=== PATIENT | female | born 1940 | race Caucasian/White ===

== ENCOUNTER → 2017-02-14 | Outpatient (CLI) | payer BC ==
[~2017-02-14] MED LIST: HYDR-1231 PO; THYR120T2 PO
--- NOTE | 2017-02-15 10:18 | Diagnostic Imaging Report ---
Right breast screening mammogram 2D views with tomosynthesis The current study was also evaluated with a Computer Aided Detection (CAD) system. Indication: Screening. No current complaints stated on the questionnaire. COMPARISON: 02/13/16 FINDINGS: The right breast parenchyma is heterogeneously dense which may decrease mammographic sensitivity. There are scattered benign-appearing calcifications. No definite mass, architectural distortion or suspicious calcifications. Allowing for technique and positional differences, no suspicious change is seen. IMPRESSION: No significant change. ACR BI-RADS Category 2: Benign findings. Result letter will be mailed to the patient. Note: At least 10% of breast cancer is not imaged by mammography. Dictated by: Dictated on workstation # [id number]
== END ==
LOC: RAD 14:57
PROVIDERS: ATTEND Internal Medicine Hematology & Oncology
DX: Z12.31 Encounter for screening mammogram for malignant neoplasm of breast (principal)

== ENCOUNTER → 2017-02-19 | Outpatient (CLI) | payer BC ==
[2017-02-19 13:49] LABS: BASOPHILS % (AUTO) 0 % (0-10); EOSINOPHILS # (AUTO) 0.1 10^3/uL (0.0-0.3); EOSINOPHILS % (AUTO) 1 % (0-10); LYMPHOCYTES # (AUTO) 1.7 X 10^3 (1.0-4.0); LYMPHOCYTES % (AUTO) 29 % (12-44); MEAN CORPUSCULAR HEMOGLOBIN 26 PG (25-34); MEAN CORPUSCULAR HGB CONC 31 G/DL (32-36); MEAN CORPUSCULAR VOLUME 84 FL (80-99); MEAN PLATELET VOLUME 10.8 FL (7.4-10.4); MONOCYTES # (AUTO) 0.4 X 10^3 (0.0-1.0); MONOCYTES % (AUTO) 7 % (0-12); NEUTROPHILS # (AUTO) 3.7 X 10^3 (1.8-7.8); NEUTROPHILS % (AUTO) 62 % (42-75); PLATELET COUNT 175 10^3/uL (130-400); RED BLOOD COUNT 4.32 10^6/uL (4.35-5.85); RED CELL DISTRIBUTION WIDTH 14.9 % (10.0-14.5); WHITE BLOOD COUNT 5.9 10^3/uL (4.3-11.0)
[2017-02-19 14:10] LABS: ALBUMIN 4.1 GM/DL (3.2-4.5); BILIRUBIN,TOTAL 0.6 MG/DL (0.1-1.0); CALCIUM 9.2 MG/DL (8.5-10.1); CREATININE SERUM 0.91 MG/DL (0.60-1.30); POTASSIUM 3.8 MMOL/L (3.6-5.0); TOTAL PROTEIN 7.4 GM/DL (6.4-8.2)
[2017-02-19 15:58] LABS: THYROID STIMULATING HORMONE 12.12 UIU/ML (0.35-4.94)
== END ==
LOC: ONC 13:39
PROVIDERS: ATTEND Internal Medicine Hematology & Oncology
DX: Z08 Encounter for follow-up examination after completed treatment for malignant neoplasm (principal); Z85.3 Personal history of malignant neoplasm of breast; Z90.12 Acquired absence of left breast and nipple; E03.9 Hypothyroidism, unspecified; D64.9 Anemia, unspecified; Z92.21 Personal history of antineoplastic chemotherapy
CPT/HCPCS: 36415; 80053; 84443; 85025; 99213

== ENCOUNTER → 2019-04-07 | Outpatient (CLI) ==
[2019-04-07 13:47] LABS: ABSOLUTE RETIC # 13 10e9/L (24-90); RETICULOCYTE % 0.39 % (0.50-2.40)
[2019-04-07 14:05] LABS: BAND NEUTROPHILS 2 %; BASOPHILS % (MANUAL) 1 %; ELLIPT/OVALOCYTES SLIGHT; EOSINOPHILS % (MANUAL) 0 %; LYMPHOCYTES % (MANUAL) 16 %; MONOCYTES % (MANUAL) 2 %; NEUTROPHILS % (MANUAL) 79 %
== END ==
LOC: MERGE 13:38 → LABNPT 13:38
PROVIDERS: ATTEND Family Medicine
DX: D58.2 Other hemoglobinopathies (principal)
CPT/HCPCS: 85007; 85045

== ENCOUNTER 2019-07-23 11:21 | Inpatient (IN) | payer BC, MEDICARE ==
[~2019-07-23] VITALS: Ht 154.9 cm; Wt 55.0 kg
[2019-07-23] MEDS ORDERED: ONDANSETRON 4 MG (ZOFRAN) ORAL DISSOLVE TAB PO PRN (12:00)
[2019-07-23] MEDS ORDERED: DOCUSATE SODIUM 100 MG (COLACE) CAP PO PRN (12:00)
[2019-07-23] MEDS ORDERED: LACTULOSE SYRUP 10GM/15ML (ENULOSE) 30ML UDC PO PRN (12:00)
[2019-07-23] MEDS ORDERED: FLEET ENEMA ADULT 1 EA BTL PR PRN (12:00)
[2019-07-23] MEDS ORDERED: CALCIUM CARBONATE 500 MG (TUMS) TAB.CHEW PO PRN (12:00)
[2019-07-23] MEDS ORDERED: ALPRAZolam 0.25 MG (XANAX) TAB PO PRN (12:00)
[2019-07-23] MEDS ORDERED: guaiFENesin/CODEINE (ROBITUSSIN AC) 10ML UDC PO PRN (12:00)
[2019-07-23] MEDS ORDERED: diphenhydrAMINE 25 MG TAB (BENADRYL) PO PRN ×2 (12:00→17:00)
[2019-07-23] MEDS ORDERED: LOPERAMIDE 2 MG (IMODIUM) TABLET PO PRN ×2 (12:00→17:00)
[2019-07-23] MEDS ORDERED: ACETAMINOPHEN 500 MG TAB (TYLENOL) PO PRN (12:00)
[2019-07-23] MEDS ORDERED: MELATONIN 3 MG TABLET PO PRN (12:00)
[2019-07-23] MEDS ORDERED: BISACODYL 10 MG SUPP (DULCOLAX) PR PRN (12:00)
[2019-07-23] MEDS ORDERED: MAGIC MOUTHWASH PO (12:05)
[2019-07-23] MEDS ORDERED: FERR325T18 PO (12:11)
[2019-07-23] MEDS ORDERED: FURO-124 PO (12:11)
[2019-07-23] MEDS ORDERED: PANT40TA2 PO (12:11)
[2019-07-23] MEDS ORDERED: MULT-1073 PO (12:11)
[2019-07-23] MEDS ORDERED: ERGO50006 PO (12:11)
[2019-07-23] MEDS ORDERED: LEVO88TA54 PO (12:11)
[2019-07-23] MEDS ORDERED: LOPE2TAB34 PO (12:11)
[2019-07-23] MEDS ORDERED: LACT1CAP39 PO (12:11)
[2019-07-23] MEDS ORDERED: PHEN177S41 MM (12:11)
[2019-07-23] MEDS ORDERED: DIPH25CA79 PO (12:11)
[2019-07-23] MEDS ORDERED: HYDR-3875 PO (12:13)
[2019-07-23] MEDS ORDERED: PRD20T PO (12:13)
--- NOTE | 2019-07-23 12:14 | NUR ---
ENTERED THE MED REC USING THE DISCHARGE SUMMARY FROM [facility]. AFTER THE MEDICATIONS ARE CONTINUED I WILL INTERVIEW THE PT AND MAKE ANY CHANGES TO THE MED REC/NOTES AT THAT TIME Addendum: 07/28/19 at 1243 by MARCELO ALBERTO [facility] SPOKE WITH THE PT TO COMPLETE THE MED REC. THE FOLLOWING MEDICATIONS HAVE BEEN REMOVED FROM THE MED REC DUE TO THE PT NOT TAKING BEFORE HER [place] STAY: CHLORASEPTIC SPRAY CULTURELLE HYDROCODONE 7.5/325MG LOPERAMIDE PANTOPRAZOLE MULTIVITAMIN CHANGES: PREDNISONE: BEFORE THE PT WAS AT [place] SHE WAS TAKING 20MG- 1 TAB AT 0800 &1400 AND THEN TAB AT BEDTIME- WHEN THE PT WAS DISCHARGE THEY WAS TO BE DISCONTINUED AND PREDNISONE 20MG- 2 TABS AFTER BREAKFAST X 30 DAYS WAS STARTED ALL OTHER MEDICATIONS ARE CONTINUED AND THE SAME- EXT MED HISTORY DOES SHOW WHAT THE PT WAS TAKING BEFORE SHE WAS AT [place]. OTC MEDS: BENADRYL IRON
--- NOTE | 2019-07-23 14:15 | NUR ---
AIDEE RAMSEY admitted to room 227-1, with an admitting diagnosis of , on 07/23/19 from via PRIVATE VEHICLE, accompanied by SON. AIDEE RAMSEY introduced to surroundings, call light, bed controls, phone, TV, temperature control, lights, meal times, smoking policy, visitor policy, side rail policy, bathrooms and showers. Patient Rights given to patient in the handbook. AIDEE RAMSEY verbalizes understanding that [facility] is not responsible for the loss or damage to any personal effects or valuables that are kept in the patients posession during their hospitalization. The following Patient Care Plans were discussed with the PATIENT AND FAMILY: Discharge Planning, [place] and F[place]. AIDEE RAMSEY verbalizes understanding of Interdisciplinary Patient Education. Patient and/or family were informed about the Rapid Response Team and its purpose. Patient received Patient Rights Booklet, which includes Privacy Act Statement and Data Collection Information Summary.
--- NOTE | 2019-07-23 14:46 | Physical Therapy Evaluation ---
PT Evaluation-General Medical Diagnosis Admission Date 07/23/2019 Medical Diagnosis: pneumonia Onset Date: Jul 18, 2019 Therapy Diagnosis Therapy Diagnosis: Impaired mobility Height/Weight Height (Feet): 5 Height (Inches): 4 Weight (Pounds): 125 Precautions Precautions/Isolations: Fall Prevention, Standard Precautions Weight Bear Status Weight Bearing/Tolerated Weight Bearing/Tolerated Referral Physician: Dinorah Reason for Referral: Evaluation/Treatment Medical History Pertinent Medical History: HTN Additional Medical History ANCA vasculitus Current History Patient reports to hospital in family car with SOB and general weakness Social History Home: Single Level Current Living Status: Other Family Entry Into Home: Stairs With Railing PT Steps Into Home: 3 (Rail on right) PT Steps Inside Home: 0 Prior Prior Level of Function SCALE: Activities may be completed with or without assistive devices. 2-Amubolqosj-xhpalmc completes the activity by him/herself with no assistance from a helper. 5-Set-up or Clean-up Assistance-helper sets up or cleans up; patient completes activity. [place] assists only prior to or following the activity. 4-Supervision or Touching Assistance-helper provides verbal cues and/or touching/steadying and/or contact guard assistance as patient completes activity. Assistance may be provided throughout the activity or intermittently. 3-Partial/Moderate Assistance-helper does LESS THAN HALF the effort. [place] lifts, holds or supports trunk or limbs, but provides less than half the effort. 2-Substantial/Maximal Assistance-helper does MORE THAN HALF the effort. [place] lifts or holds trunk or limbs and provides more than half the effort. 8-Kkfphvelv-knbgpg does ALL the effort. Patient does none of the effort to complete the activity. Or, the assistance of 2 or more helpers is required for the patient to complete the activity. If activity was not attempted, code reason: 7-Patient Refused. 9-Not Applicable-not attempted and the patient did not perform the activity before the current illness, exacerbation or injury. 10-Not Attempted due to Environmental Limitations-(lack of equipment, weather restraints, etc.). 88-Not Attempted due to Medical Conditions or Safety Concerns. Bed Mobility: 6 Transfers (B,C,W/C): 6 Gait: 6 Stairs: 6 Indoor Mobility (Ambulation): Independent Stairs: Needed Some Help Prior Devices Use: Walker Prior Device Use: RW PT Evaluation-Current Subjective Patient reports no pain but shortness of breath Pt/Family Goals Return home Objective Patient Orientation: Person, Place, Eyes Open ROM/Strength ROM Upper Extremities WNL ROM Lower Extremities Limited with flexion of hip and knee Strength Upper Extremities Gross weakness 4/5 Strength Lower Extremities Gross weakness at 4/5, 3/5 for B hip flexor Integumentary/Posture Bowel Incontinence: No Bladder Incontinence: No Posture forward posture when walking and sitting EOB Neuromuscular (Tone, Coordination, Reflexes) WNL Sensory Vision: Functional Hearing: Functional Sensation Right Upper Extremit: Intact Sensation Right Lower Extremit: Intact Sensation Left Lower Extremity: Intact Transfers Roll Left to Right (QC): 4 Sit to Lying (QC): 4 Lying to Sitting/Side of Bed(Q: 4 Sit to Stand (QC): 4 Chair/Fik-wu-Vpygg Xfer(QC): 4 (CGA) Car Transfer (QC): 4 (CGA) Gait Does the Patient Walk?: Yes Mode of Locomotion: Walk Anticipated Mode of Locomotion: Walk Walk 10 feet (QC): 4 (CGA) Walk 50 ft with 2 Turns(QC): 4 (CGA) Walk 150 ft (QC): 4 (CGA) Walking 10ft/uneven surface-QC: 4 (CGA) Distance: 75 eval + 150 for therapy session Gait Assistive Device: FWW Wheelchair Training Does the Pt Use a Wheelchair?: No Stairs #of Steps: 1 1 Step (curb) (QC): 3 (slight LOB due to catching heal on step. Less then 50% help) 4 Steps (QC): 88 12 Steps (QC): 88 Balance Sitting Static: Normal Sitting Dynamic: Good Standing Static: Fair Standing Dynamic: Poor Picking up an Object (QC): 5 Treatment Pt sitting EOB, provided information for evaluation about PLOF and home set up. PT/OT cotreat due to decreased functional ability requiring the skill of 2 disciplines which a rehabilitation therapy aide could not perform. OT focused on UE placement, sequencing, and cues for safety while PT focused on LE placement and overall gross movement. Pt ambulated to therapy gym with FWW where she participated in UE/LE exercises to increase functional endurance. Noted pt fatigued easily requiring rest breaks between tasks. Assessment/Needs Patient is welling to complete all rehab activities. Patient is limited by SOB, and slight confusion when complete activities. Implementing safety with issuing patient a chair alarm. Patient educated not to get out chair/bed/toilet without calling RN first. When patient is returned to bed alarm will be set. At the end of session patient was left in the care of OT. Rehab Potential: Fair Equipment Needs RW PT Short Term Goals Short Term Goals Time Frame: Jul 30, 2019 Roll Left & Right: 5 Sit to lyin Lying to sitting on side of be: 5 Sit to stand: 4 (SBA) Chair/zzm-uv-irrsg transfer: 4 (SBA) Car transfer: 4 (SBA) Walk 10 feet: 4 (SBA) Walk 50 feet with two turns: 4 (SBA) Walk 150 feet: 4 (SBA) Walking 10ft on uneven surface: 4 (SBA) 1 step (curb): 4 (SBA) 4 steps: 4 (CGA) 12 steps: 4 (CGA) PT Grievance Manager Goals Residential Goals PT Grievance Manager Goals Time Frame: Aug 22, 2019 Roll Left & Right (QC): 5 Sit to Lying (QC): 5 Lying-Sitting on Side/Bed(QC): 5 Sit to Stand (QC): 5 Chair/Bqx-dq-Obgta Xfer(QC): 5 Car Transfer (QC): 5 Does the Patient Walk: Yes Walk 10 feet (QC): 5 Walk 50ft with 2 Turns (QC): 5 Walk 150 ft (QC): 5 Walking 10ft on Uneven Surface: 5 1 Step (curb) (QC): 5 4 Steps (QC): 5 12 Steps (QC): 5 Picking up an Object (QC): 5 PT Plan Problem List Problem List: Activity Tolerance, Functional Strength, Safety, Balance, Gait, Transfer, Bed Mobility, ROM Treatment/Plan Treatment Plan: Continue Plan of Care Treatment Plan: Bed Mobility, Concurrent Therapy, Education, Functional Activity Gwyn, Functional Strength, Group Therapy, Gait, Safety, Therapeutic Exercise, Transfers Treatment Duration: Aug 22, 2019 Frequency: At least 5 of 7 days/Wk (IRF) Estimated Hrs Per Day: 1.5 hours per day Patient and/or Family Agrees t: Yes Safety Risks/Education Patient Education: Gait Training, Transfer Techniques, Correct Positioning, Disease Process Teaching Recipient: Patient Teaching Methods: Demonstration, Handout, Discussion, Audiovisual Response to Teaching: Verbalize Understanding, Return Demonstration, Reinforcement Needed Time/GCodes Time In: 1415 Time Out: 3425 Total Billed Treatment Time: 60 Total Billed Treatment 1 visit EVM 20 CoTreat with OT FA 10 min EX x 2 30 min RUPESH JIMÉNEZ PT Jul 23, 2019 14:46
--- NOTE | 2019-07-23 15:05 | Occupational Therapy Eval ---
OT Evaluation-General/PLF Medical Diagnosis Admission Date Medical Diagnosis: pneumonia Onset Date: Jul 18, 2019 Therapy Diagnosis Therapy Diagnosis: impaired ADLs/debility Height/Weight Height (Feet): 5 Height (Inches): 4 Weight (Pounds): 125 Precautions Precautions/Isolations: Fall Prevention, Standard Precautions Referral Physician: Dinorah [place] Reason: Evaluation/Treatment Medical History Pertinent Medical History: HTN Additional Medical History ANCA vasculitis, CKD, anemia, hypokalemia, HLD, hypothyroidism Current History Pt admitted to ARU on 07/23/2019 Social History Home: Single Level Current Living Status: Children (daughter) Entry Into Home: Stairs With Railing Steps Into Home: 3 (Rail on right) Steps Inside Home: 0 ADL-Prior Level of Function SCALE: Activities may be completed with or without assistive devices. 9-Ixcguzhzmt-vethliu completes the activity by him/herself with no assistance from a helper. 5-Set-up or Clean-up Assistance-helper sets up or cleans up; patient completes activity. [place] assists only prior to or following the activity. 4-Supervision or Touching Assistance-helper provides verbal cues and/or touching/steadying and/or contact guard assistance as patient completes activity. Assistance may be provided throughout the activity or intermittently. 3-Partial/Moderate Assistance-helper does LESS THAN HALF the effort. [place] lifts, holds or supports trunk or limbs, but provides less than half the effort. 2-Substantial/Maximal Assistance-helper does MORE THAN HALF the effort. [place] lifts or holds trunk or limbs and provides more than half the effort. 6-Kadghcdnf-ubxgvx does ALL the effort. Patient does none of the effort to complete the activity. Or, the assistance of 2 or more helpers is required for the patient to complete the activity. If activity was not attempted, code reason: 7-Patient Refused. 9-Not Applicable-not attempted and the patient did not perform the activity before the current illness, exacerbation or injury. 10-Not Attempted due to Environmental Limitations-(lack of equipment, weather restraints, etc.). 88-Not Attempted due to Medical Conditions or Safety Concerns. ADL PLOF Comments Pt reports being independent with bathing and dressing at prior level. Her daughter assists with cooking and cleaning as needed. She reports getting down into the tub recently (she usually stands up to take a shower) and she had to have her daughter help her get out. She did not use AD for functional mobility. Self Care: Needed Some Help Functional Cognition: Independent DME/Equipment: Tub/Shower OT Current Status Subjective Pt sitting EOB post PT evaluation, agreeable to OT evaluation followed by OT/PT co-treat. Pain Numeric Pain Scale: 0-No Pain Mental Status/Objective Patient Orientation: Person, Place, Time, Situation Attachments: Central Line Current Glasses/Contacts: Yes Hearing Aids: No Dentures/Partials: No Hand Dominance: Right Upper Extremity ROM WFL, BUE shoulder flexion to approx 160, able to touch back of head with hands Upper Extremity Coordination WFL Upper Extremity Sensation pt denied tingling/numbness, then reports she sometimes experiences tingling/numbness in her hands Upper Extremity Strength grossly 3+/5 ADL-Treatment Eating (QC): 7 Oral Hygiene (QC): 7 Shower/Bathe Self (QC): 7 Upper Body Dressing (QC): 7 Lower Body Dressing (QC): 7 On/Off Footwear (QC): 7 Toileting Hygiene (QC): 4 (CGA, pt managed pants up/down and performed hygiene) Other Treatments Pt sitting EOB, provided information for evaluation about PLOF and home set up. PT/OT cotreat due to decreased functional ability requiring the skill of 2 disciplines which a rehabilitation aide/scheduler could not perform. OT focused on UE placement, sequencing, and cues for safety while PT focused on LE placement and overall gross movement. Pt ambulated to therapy gym with FWW where she participated in UE/LE exercises to increase functional endurance. Noted pt fatigued easily requiring rest breaks between tasks. Pt educated on rehab process/expectations, verbalizing understanding. Pt completed functional reaching during standing at grab bars. Pt also worked on dynamic sitting balance while completing dowel movements, noted no LOB during sitting. with sit to/from stand transfers, pt required cues each time to place hands on chair to push up/reach back instead of placing hands on walker. Poor carryover of safety technique during session. OT/PT cotreat ends. OT tx: Pt reports she needed to use the restroom, performing functional mobility to her room with FWW, CGA. Pt completed toileting, then stood at sink for hand washing with CGA, pt required assistance with getting soap on her hands and assistance to locate paper towels due to pt being in a new environment. Pt requested to return to her recliner. Post OT session, pt seated upright in recliner, call light in reach and all needs met, chair alarm on. Education OT Patient Education: Correct positioning, Energy conservation, Exercise program, Modified ADL techniques, Progress toward Goal/Update tx plan, Purpose of tx/functional activities, Rehab process Teaching Recipient: Patient Teaching Methods: Discussion Response to Teaching: Verbalize Understanding OT Short Term Goals Short Term Goals Time Frame: Aug 05, 2019 Oral hygiene: 5 Lower body dressin Putting on/taking off footwear: 5 OT Residential Goals Residential Goals Time Frame: Aug 21, 2019 Eating (QC): 6 Oral Hygiene (QC): 6 Toileting Hygiene (QC): 6 Shower/Bathe Self (QC): 6 Upper Body Dressing (QC): 6 Lower Body Dressing (QC): 6 On/Off Footwear (QC): 6 Additional Goals: 1-Demonstrate ADL Tasks, 2-Verbalize Understanding, 3- ImproveStrength/Gwyn 1=Demonstrate adherence to instructed precautions during ADL tasks. 2=Patient will verbalize/demonstrate understanding of assistive devices/modifications for ADL. 3=Patient will improve strength/tolerance for activity to enable patient to perform ADL's. OT Education/Plan Problem List/Assessment Assessment: Decreased Activ Tolerance, Decreased Safety Aware, Decreased UE Strength, Impaired Funct Balance, Impaired I ADL's, Impaired Self-Care Skills Discharge Recommendations Plan/Recommendations: Continue POC Treatment Plan/Plan of Care Treatment,Training & Education: Yes Patient would benefit from OT for education, treatment and training to promote independence in ADL's, mobility, safety and/or upper extremity function for ADL's. Plan of Care: ADL Retraining, Functional Mobility, Group Exercise/Act as Ind, UE Funct Exercise/Act Treatment Duration: Aug 21, 2019 Frequency: At least 5 of 7 days/Wk (IRF) Estimated Hrs Per Day: 1.5 hours per day Agreement: Yes Rehab Potential: Good Time/GCodes Start Time: 14:35 Stop Time: 15:35 Total Time Billed (hr/min): 60 Billed Treatment Time 1859-0429 OT eval [id number] OT/PT co-treat [id number] OT tx 1, EVM (10'), FA 3 (50') CRUMPACKER,REKHA OT Jul 23, 2019 15:05
[2019-07-23] MEDS ORDERED: ENOXAPARIN 40 MG/0.4 ML (LOVENOX) SYR SC SCH (16:00)
[2019-07-23 16:30] VITALS: BP 125/77
[2019-07-23] MEDS ORDERED: NON-FORMULARY MEDICATION 1 EA EA (Loperamide HCl (Loperamide) 2 MG) PO PRN (17:00)
[2019-07-23] MEDS ORDERED: CHLORASEPTIC SPRAY 177 ML LIQUID MC PRN (17:00)
[2019-07-23] MEDS ORDERED: HYDROcodone/APAP 7.5 MG/325 MG (LORTAB, LORCET PLUS) TABLET PO PRN (17:00)
[2019-07-23] MEDS ORDERED: MAGIC MOUTHWASH PO PRN (17:00)
[2019-07-23] MEDS ORDERED: PHENOL MM PRN (17:00)
[2019-07-23] MEDS ORDERED: NON-FORMULARY MEDICATION 1 EA EA (Diphenhydramine HCl (Benadryl) 25 MG) PO PRN (17:00)
[2019-07-23 18:00] VITALS: BP 127/67
--- NOTE | 2019-07-23 18:02 | PM&R Post Admission Assessment ---
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 Creatinine remains stable at 1.5. Daughter reports she had received Rituximab 2 doses, last dose 05/14/19 and maintained on Atovaquone for abx PPx and PPI for gastritis PPx. Patient currently has central line which will be DC and midline will be placed for IV iron therapy. BM+. Past Rdrpulw-Vwkdvk-Ugjhik Hx Past Med/Social Hx: Reviewed Nursing Past Med/Soc Hx, Reviewed and Corrections made Patient Social History Marrital Status: single Employed/Student: employed ([employer]) Alcohol Use: Denies Use Recreational Drug Use: No Smoking Status: Never a Smoker Physical Abuse Screen: No Sexual Abuse: No Recent Foreign Travel: No Contact w/other who traveled: No Recent Hopitalizations: Yes (pneumonia, kidney disease) Recent Infectious Disease Expo: Yes (recent pneumonia) Immunizations Up To Date Date of Influenza Vaccine: Feb 03, 2019 Seasonal Allergies Seasonal Allergies: Yes Past Medical History Surgeries: Appendectomy, Hysterectomy Respiratory: Pneumonia (07/13/19 LLL) Currently Using CPAP: No Currently Using BIPAP: No Reproductive: No Sexually Transmitted Disease: No HIV/AIDS: No Female Reproductive Disorders: Denies Hysterectomy Genitourinary: Renal Failure Musculoskeletal: Chronic Back Pain Endocrine: Hypothyroidsim HEENT: Cataract Loss of Vision: Bilateral Hearing Impairment: Denies Cancer: Breast Did You Recieve Any Treatments: Yes What Type of Treatment Did You: Surgical Intervention Cancer: left mastectomy 1982 History of Blood Disorders: No Adverse Reaction to Blood Ash: No Family History Alcoholism G8 BROTHER G8 BROTHER Alzheimer's disease G8 BROTHER Arthritis G8 BROTHER Cataracts 19 FATHER 19 MOTHER G8 BROTHER G8 BROTHER G8 SISTER Colon cancer 19 FATHER Completed stroke 19 FATHER Dementia G8 BROTHER Diabetes mellitus 19 MOTHER Myocardial infarction 19 FATHER Prior Level of Function Bed Mobility: 6 Transfers: 6 Gait: 6 Stairs: 6 Indoor Mobility (Ambulation): Independent Stairs: Needed Some Help Prior Devices Use: Walker RW Self Care: Needed Some Help Functional Cognition: Independent Current Level of Fuctioning Roll Left to Right: 4 Sit to Lyin Lying to Sitting/Side of Bed: 4 Sit to Stand: 4 Chair/Roj-ma-Ddepy Xfer: 4 (CGA) Car Transfer: 4 (CGA) Does the Patient Walk: Yes Mode of Locomotion: Walk Anticipated Mode of Locomotion: Walk Walk 10 feet: 4 (CGA) Walk 50 ft with 2 Turns: 4 (CGA) Walk 150 ft: 4 (CGA) Walking 10ft on uneven surface: 4 (CGA) Gait Assistive Device: FWW Does the Pt Use a Wheelchair: No #of Steps: 1 1 Step (curb): 3 (slight LOB due to catching heal on step. Less then 50% help) 4 Steps: 88 12 Steps: 88 Picking up an Object: 5 Eatin Oral Hygiene: 7 Shower/Bathe Self: 7 Upper Body Dressin Lower Body Dressin On/Off Footwear: 7 Toileting Hygiene: 4 (CGA, pt managed pants up/down and performed hygiene) PM&R Allergy/Meds/Data Review Allergies Coded Allergies: No Known Drug Allergies (Unverified , 07/09/14) Home Medications Scheduled Ergocalciferol (Vitamin D2) (Vitamin D2), 1,250 MCG PO SATURDAY, (Reported) Ferrous Sulfate (Ferrous Sulfate), 325 MG PO DAILY, (Reported) Furosemide (Lasix), 40 MG PO DAILY, (Reported) Lactobacillus Rhamnosus GG (Culturelle), 1 EACH PO BID, (Reported) Levothyroxine Sodium (Levothyroxine Sodium), 88 MCG PO DAILY BEFORE BREAKFA, (Reported) Multivit,Calc,Mins/Iron/Folic (Therapeutic-M Tablet), 1 EACH PO DAILY, (Reported) Pantoprazole Sodium (Protonix), 40 MG PO DAILY, (Reported) Prednisone (Prednisone), 40 MG PO DAILY AFTER BREAKFAS, (Reported) Scheduled PRN Diphenhydramine HCl (Benadryl), 25 MG PO HS PRN for SLEEP, (Reported) Hydrocodone/Acetaminophen (Lorcet Plus 7.5-325 mg Tablet), 1 EACH PO Q4H PRN for PAIN-MODERATE (5-7), (Reported) Loperamide HCl (Loperamide), 2 MG PO Q6H PRN for DIARRHEA, (Reported) Phenol (Chloraseptic), 1 SPRAY MM Q4H PRN for DISCOMFORT, (Reported) [Magic Mouthwash], 5-10 ML PO Q6H PRN for SORES, (Reported) Discontinued Medications Hydrocodone Bit/Acetaminophen (Hydrocodone-Apap 5-325 Tablet), 1 TAB PO Q6H PRN for PAIN Discontinued Reason: No Longer Taking Thyroid (Thyroid), Unknown Dose PO DAILY, (Reported) Discontinued Reason: No Longer Taking Current Medications Current Medications Reviewed Review of Systems Constitutional: see HPI, dizziness, malaise, weakness EENTM: no symptoms reported Respiratory: cough, dyspnea on exertion Cardiovascular: no symptoms reported Gastrointestinal: no symptoms reported Genitourinary: no symptoms reported Musculoskeletal: back pain Skin: no symptoms reported Psychiatric/Neurological: Depressed All Other Systems Reviewed Negative Unless Noted: Yes Physical Exam Physical Exam Vital Signs Capillary Refill : Height, Weight, BMI Height: 5'4" Weight: 125lbs. oz. [id number]; 24.00 BMI Method:Stated General Appearance: No Apparent Distress, WD/WN, Anxious, Chronically ill, Thin Eyes: Bilateral Eye Normal Inspection, Bilateral Eye PERRL HEENT: PERRL/EOMI, Normal ENT Inspection, Pharynx Normal Neck: Full Range of Motion, Normal Inspection, Non Tender, Supple, Carotid Bruit Respiratory: Chest Non Tender, Lungs Clear, No Accessory Muscle Use, No Respiratory Distress, Crackles, Decreased Breath Sounds Cardiovascular: Regular Rate, Rhythm, No Edema, No Gallop, No JVD, No Murmur, Normal Peripheral Pulses Gastrointestinal: Normal Bowel Sounds, No Organomegaly, No Pulsatile Mass, Non Tender, Soft Back: Normal Inspection, No CVA Tenderness, No Vertebral Tenderness Extremity: Normal Capillary Refill, Normal Inspection, Normal Range of Motion, Non Tender, No Calf Tenderness, No Pedal Edema Neurologic/Psychiatric: Alert, Oriented x3, No Motor/Sensory Deficits, Normal Mood/Affect, exhibits curator II-XII Norm as Tested, Abnormal Gait (weak), Motor Weakness (generalized) Skin: Normal Color, Warm/Dry Lymphatic: No Adenopathy PM&R Medical Assessment & Plan REHAB/MEDICAL ASSESSMENT AND PLAN: REHAB IMPAIRMENT GROUP: Debility from septic shock and ARF in ANCA + patient maintained on steroids ETIOLOGIC DIAGNOSIS: Debility from septic shock and ARF in ANCA + patient maintained on steroids The comorbidities that impact the patients function and/or functional outcome by: frail status, advanced age, flat affect, prednisone dependence, delirium REHAB PLAN: The patient is being admitted to our comprehensive inpatient rehabilitation facility and can tolerate the intensity of service consisting of at least: 180 minutes of therapy a day, 5 out of 7 days a week Rehab treatment will consist of: PT OT will focus on fall prevention and increase stamina and regain independence in ADL's The patient/family has a good understanding of our discharge process and will benefit from an interdisciplinary inpatient rehabilitation program. The patient has potential to make improvement and is in need of at least two of the following multidisciplinary therapies including but not limited to physical, occupational, speech, and prosthetics and orthotics. Additionally the patient will need services from respiratory, nutritional services, wound care, psychology, etc. (Customize this to each patient). Given the patients complex condition and risk of further medical complications, rehabilitation services cannot be safely or effectively provided at a lower level of care such as a jail facility. BARRIERS TO DISCHARGE: Frail status and advanced age and immunosuppression ESTIMATED LOS: 7 days DISPOSITION: Home RELEVANT CHANGES SINCE PREADMISSION SCREENING: I have compared the patients medical and functional status at the time of the preadmission screening and there are: no changes PROGNOSIS: Good REHABILITATION GOALS: 1. PT OT will focus on fall prevention and increase stamina and regain independence in ADL's All the above goals were reviewed with the patient and he/she is in agreement. By signing this document, I acknowledge that I have personally performed a full physical examination on this patient within 24 hours of admission to this inpatient rehabilitation facility and have determined the patient to be able to tolerate the above course of treatment at an intensive level for a reasonable period of time. I will be completing a detailed individualized Plan of Care for this patient by day #4 of the patients stay based upon the Preadmission Screen, the Post-Admission Evaluation, and the therapy evaluations. Admission Dx/Comorbidities: (1) Debility ICD Codes: R53.81 - Other malaise (2) Immunosuppression ICD Codes: D89.9 - Disorder involving the immune mechanism, unspecified (3) Perinuclear antineutrophil cytoplasmic antibodies (p-ANCA) and myelo peroxidase (MPO) antibodies positive ICD Codes: R76.8 - Other specified abnormal immunological findings in serum (4) Renal insufficiency ICD Codes: N28.9 - Disorder of kidney and ureter, unspecified (5) LLL pneumonia ICD Codes: J18.1 - Lobar pneumonia, unspecified organism (6) Rales ICD Codes: R09.89 - Other specified symptoms and signs involving the circulatory and respiratory systems (7) Anemia ICD Codes: D64.9 - Anemia, unspecified (8) Iron deficiency ICD Codes: E61.1 - Iron deficiency (9) GERD (gastroesophageal reflux disease) ICD Codes: K21.9 - Gastro-esophageal reflux disease without esophagitis (10) Hypothyroidism ICD Codes: E03.9 - Hypothyroidism, unspecified (11) Thrombocytopenia ICD Codes: D69.6 - Thrombocytopenia, unspecified (12) Serum albumin decreased ICD Codes: E88.09 - Other disorders of plasma-protein metabolism, not elsewhere classified (13) Mouth sores ICD Codes: K13.79 - Other lesions of oral mucosa (14) Hypoxia ICD Codes: R09.02 - Hypoxemia (15) Delirium ICD Codes: R41.0 - Disorientation, unspecified Copy Copies To 1: ANA CALVO MD Assessment/Plan Assessment and Plan Assess & Plan/Chief Complaint Assessment: Debility LLL PNA s/p treatment at [place] 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 Anemia Hypothyroidism Advanced age Frail status Decreased albumin HLP HTN Delirium Plan: O2 Prednisone as directed Home meds Nebs IS BM regimen IRF protocol LYDIA MEJIA DO Jul 23, 2019 18:02
[2019-07-23] MEDS: VISC LIDOCAINE/ANTACID/DIPHENHYDRAMINE 1:1:1 120 ML PO PRN ×3 (18:11)
[2019-07-23] MEDS ORDERED: NON-FORMULARY MEDICATION 1 EA EA (Lactobacillus Rhamnosus GG (Culturelle) 1 EACH) PO SCH (21:00)
[2019-07-23] MEDS: polyethylene glycoL POWDER 17 GM (MIRALAX) PACK PO SCH (21:08)
[2019-07-23] MEDS: SENNA W/DOCUSATE (SENOKOT S) TABLET PO SCH (21:08)
[2019-07-23] MEDS: DOCUSATE SODIUM 100 MG (COLACE) CAP PO SCH (21:08)
[2019-07-23] MEDS: LACTOBACILLUS ACIDOPHILUS (PROBIOTIC) CAPSULE PO SCH (21:17)
[2019-07-24 05:05] VITALS: BP 158/78
[2019-07-24] MEDS: MULTIVIT W/MINERALS TAB (THERAGRAN M) PO SCH (05:18)
[2019-07-24] MEDS: LEVOTHYROXINE 88 MCG (LEVOTHORID) TAB PO SCH (05:18)
[2019-07-24 05:28] LABS: BASOPHILS % (AUTO) 0 % (0-10); EOSINOPHILS % (AUTO) 0 % (0-10); HEMATOCRIT 27 % (35-52); HEMOGLOBIN 8.5 G/DL (11.5-16.0); LYMPHOCYTES # (AUTO) 0.9 X 10^3 (1.0-4.0); LYMPHOCYTES % (AUTO) 14 % (12-44); MEAN CORPUSCULAR HEMOGLOBIN 28 PG (25-34); MEAN CORPUSCULAR HGB CONC 32 G/DL (32-36); MEAN CORPUSCULAR VOLUME 87 FL (80-99); MEAN PLATELET VOLUME 10.4 FL (7.4-10.4); MONOCYTES # (AUTO) 0.4 X 10^3 (0.0-1.0); MONOCYTES % (AUTO) 5 % (0-12); NEUTROPHILS # (AUTO) 5.6 X 10^3 (1.8-7.8); NEUTROPHILS % (AUTO) 81 % (42-75); PLATELET COUNT 127 10^3/uL (130-400); RED CELL DISTRIBUTION WIDTH 18.7 % (10.0-14.5); WHITE BLOOD COUNT 6.9 10^3/uL (4.3-11.0)
[2019-07-24 05:48] LABS: ALBUMIN 2.5 GM/DL (3.2-4.5); BILIRUBIN,TOTAL 0.3 MG/DL (0.1-1.0); CALCIUM 7.6 MG/DL (8.5-10.1); CREATININE SERUM 1.5 MG/DL (0.60-1.30); POTASSIUM 4.3 MMOL/L (3.6-5.0); TOTAL PROTEIN 4.4 GM/DL (6.4-8.2)
[2019-07-24] MEDS: RT-ALBUTEROL SULF 2.5 MG/3 ML PRE-MIX VIAL INH SCH ×3 (07:58→19:43)
[2019-07-24] MEDS ORDERED: FERROUS SULF 325 MG (IRON) TAB PO SCH (08:00)
[2019-07-24] MEDS: LACTOBACILLUS ACIDOPHILUS (PROBIOTIC) CAPSULE PO SCH ×2 (08:46→20:45)
[2019-07-24] MEDS: FUROSEMIDE 40 MG (LASIX) TAB PO SCH (08:47)
[2019-07-24] MEDS: predniSONE 20 MG TAB PO SCH (08:47)
[2019-07-24] MEDS: PANTOPRAZOLE 40 MG (PROTONIX) TAB PO SCH (08:47)
[2019-07-24] MEDS: VISC LIDOCAINE/ANTACID/DIPHENHYDRAMINE 1:1:1 120 ML PO PRN ×3 (08:51)
[2019-07-24] MEDS: SENNA W/DOCUSATE (SENOKOT S) TABLET PO SCH ×2 (08:52→19:38)
[2019-07-24] MEDS: DOCUSATE SODIUM 100 MG (COLACE) CAP PO SCH ×2 (08:52→19:38)
[2019-07-24] MEDS: polyethylene glycoL POWDER 17 GM (MIRALAX) PACK PO SCH ×2 (08:52→19:38)
--- NOTE | 2019-07-24 09:01 | Physical Therapy Daily Note ---
PT Daily Note-Current Subjective Pt. pleasant and agreeable to rx. c/o weakness and mild SOB. O2 sats steady on room air at 95% Pain Location: No Pain Reported Appearance weak, frail Mental Status Patient Orientation: Person, Situation Transfers SCALE: Activities may be completed with or without assistive devices. 5-Gtsgmybjgh-pvrefxr completes the activity by him/herself with no assistance from a helper. 5-Set-up or Clean-up Assistance-helper sets up or cleans up; patient completes activity. [place] assists only prior to or following the activity. 4-Supervision or Touching Assistance-helper provides verbal cues and/or touching/steadying and/or contact guard assistance as patient completes activity. Assistance may be provided throughout the activity or intermittently. 3-Partial/Moderate Assistance-helper does LESS THAN HALF the effort. [place] lifts, holds or supports trunk or limbs, but provides less than half the effort. 2-Substantial/Maximal Assistance-helper does MORE THAN HALF the effort. [place] lifts or holds trunk or limbs and provides more than half the effort. 3-Smckfiimp-igivxi does ALL the effort. Patient does none of the effort to complete the activity. Or, the assistance of 2 or more helpers is required for the patient to complete the activity. If activity was not attempted, code reason: 7-Patient Refused. 9-Not Applicable-not attempted and the patient did not perform the activity before the current illness, exacerbation or injury. 10-Not Attempted due to Environmental Limitations-(lack of equipment, weather restraints, etc.). 88-Not Attempted due to Medical Conditions or Safety Concerns. Roll Left & Right (QC): 6 Sit to Lying (QC): 6 Lying to Sitting/Side of Bed(Q: 6 Sit to Stand (QC): 5 Chair/Jbl-ll-Ndpje Xfer(QC): 5 Toilet Transfer (QC): 5 Weight Bearing Weight Bearing/Tolerated Weight Bearing/Tolerated Gait Training Does the Patient Walk?: Yes Walk 10 feet (QC): 4 Walk 50 ft with 2 Turns(QC): 4 Gait Persons Needed: 1 Gait Assistive Device: FWW slow, no LOB, good use of device, fatigues quickly and needs rest breaks Exercises Supine Ex: Bridging, Ankle pumps, Quad Set, Rolling, Glut sets, Heel Slides, Short Arc Quads, Scooting, Straight leg raise (x5), Hip abd/add Supine Reps: 12 Seated Therapy Exercises: Ankle pumps, Sit to stand, Long arc quads, Hip flexion, Hip abd/add Seated Reps: 15 Treatments pt. c/o shakiness and weakness and requests rest breaks often. O2 sats monitored multiple times at 95% on room air. Assessment Current Status: Good Progress PT Short Term Goals Short Term Goals Time Frame: Jul 30, 2019 Roll Left & Right: 5 Sit to lyin Lying to sitting on side of be: 5 Sit to stand: 4 (SBA) Chair/mwd-qi-gjboc transfer: 4 (SBA) Car transfer: 4 (SBA) Walk 10 feet: 4 (SBA) Walk 50 feet with two turns: 4 (SBA) Walk 150 feet: 4 (SBA) Walking 10ft on uneven surface: 4 (SBA) 1 step (curb): 4 (SBA) 4 steps: 4 (CGA) 12 steps: 4 (CGA) PT Research Nutritionist Goals Research Nutritionist Goals PT Research Nutritionist Goals Time Frame: Aug 22, 2019 Roll Left & Right (QC): 5 Sit to Lying (QC): 5 Lying-Sitting on Side/Bed(QC): 5 Sit to Stand (QC): 5 Chair/Lff-qs-Sufex Xfer(QC): 5 Car Transfer (QC): 5 Does the Patient Walk: Yes Walk 10 feet (QC): 5 Walk 50ft with 2 Turns (QC): 5 Walk 150 ft (QC): 5 Walking 10ft on Uneven Surface: 5 1 Step (curb) (QC): 5 4 Steps (QC): 5 12 Steps (QC): 5 Picking up an Object (QC): 5 PT Plan Treatment/Plan Treatment Plan: Continue Plan of Care Treatment Plan: Bed Mobility, Concurrent Therapy, Education, Functional Activity Gwyn, Functional Strength, Group Therapy, Gait, Safety, Therapeutic Exercise, Transfers Treatment Duration: Aug 22, 2019 Frequency: At least 5 of 7 days/Wk (IRF) Estimated Hrs Per Day: 1.5 hours per day Patient and/or Family Agrees t: Yes Safety Risks/Education Patient Education: Gait Training, Transfer Techniques, Correct Positioning, Disease Process, Safety Issues Teaching Recipient: Patient Teaching Methods: Demonstration, Discussion Response to Teaching: Unable to Return Demonstration, Return Demonstration, Reinforcement Needed discussed deep breathing and coughing Time/GCodes Time In: 800 Time Out: 900 Total Billed Treatment Time: 60 Total Billed Treatment 1,FA40m,GT15m,EX20m BILL 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
--- NOTE | 2019-07-24 10:00 | NUR ---
ONLY COMPLAINT OF PAIN WAS BLISTERED AREAS ON TONGUE AND IN MOUTH. MAGIC MOUTHWASH HELPS. ADMITS TO SOB WITH EXERTION. IS STILL WEAK AND SHAKY WITH ACTIVITY.
--- NOTE | 2019-07-24 11:27 | PM&R Progress Note ---
Subjective HPI/CC On Admission Date Seen by Provider: Jul 24, 2019 Time Seen by Provider: 10:30 Subjective/Events-last exam Patient doing pretty well Slept pretty well last night Sores in mouth are being managed with Magic mouthwash and she thinks that that is helping Midline will be placed for iron infusions Chest x-ray will be checked but lungs sound much improved after incentive spirometer and nebulizer treatments Patient walking around but very weakened and frail and pale Check meds and labs Conferred with RN Reviewed therapy notes Review of Systems General: Fatigue HEENT: Other (mouth pain) Pulmonary: Cough Objective Exam Vital Signs Vital Signs Date Time Temp Pulse Resp B/P (MAP) Pulse Ox O2 Delivery O2 Flow Rate FiO2 07/24/19 16:00 36.0 77 16 155/83 (107) 96 Room Air Capillary Refill : Less Than 3 SecondsLess Than 3 Seconds General Appearance: Anxious, Chronically ill, Thin HEENT: PERRL/EOMI, Normal ENT Inspection, Pharynx Normal Neck: Full Range of Motion, Normal Inspection, Non Tender, Supple Respiratory: Chest Non Tender, Lungs Clear, Normal Breath Sounds, No Accessory Muscle Use, No Respiratory Distress, Decreased Breath Sounds Cardiovascular: Regular Rate, Rhythm, No Edema, No Gallop, No JVD, No Murmur, Normal Peripheral Pulses Gastrointestinal: Normal Bowel Sounds, No Organomegaly, No Pulsatile Mass, Non Tender, Soft Back: Normal Inspection, No CVA Tenderness, No Vertebral Tenderness Extremity: Normal Capillary Refill, Normal Inspection, Normal Range of Motion, Non Tender, No Calf Tenderness Neurologic/Psychiatric: Alert, Oriented x3, No Motor/Sensory Deficits, orthopaedic nurse II- XII Norm as Tested, Depressed Affect Skin: Normal Color, Warm/Dry Lymphatic: No Adenopathy Results/Procedures Lab Laboratory Tests 07/24/19 05:15 Patient resulted labs reviewed. FIM Transfers Therapy Code Descriptions/Definitions Functional [place] Measure: 0=Not Assessed/NA 4=Minimal Assistance 1=Total Assistance 5=Supervision or Setup 2=Maximal Assistance 6=Modified [place] 3=Moderate Assistance 7=Complete IndependenceSCALE: Activities may be completed with or without assistive devices. 7-Iwvirqjiia-uquwhqc completes the activity by him/herself with no assistance from a helper. 5-Set-up or Clean-up Assistance-helper sets up or cleans up; patient completes activity. [place] assists only prior to or following the activity. 4-Supervision or Touching Assistance-helper provides verbal cues and/or touching/steadying and/or contact guard assistance as patient completes activity. Assistance may be provided throughout the activity or intermittently. 3-Partial/Moderate Assistance-helper does LESS THAN HALF the effort. [place] li fts, holds or supports trunk or limbs, but provides less than half the effort. 2-Substantial/Maximal Assistance-helper does MORE THAN HALF the effort. [place] lifts or holds trunk or limbs and provides more than half the effort. 5-Anwxpgeus-obdbrh does ALL the effort. Patient does none of the effort to complete the activity. Or, the assistance of 2 or more helpers is required for the patient to complete the activity. If activity was not attempted, code reason: 7-Patient Refused. 9-Not Applicable-not attempted and the patient did not perform the activity before the current illness, exacerbation or injury. 10-Not Attempted due to Environmental Limitations-(lack of equipment, weather restraints, etc.). 88-Not Attempted due to Medical Conditions or Safety Concerns. Roll Left to Right (QC): 6 Sit to Lying (QC): 6 Sit to Stand (QC): 5 Chair/Dly-lw-Joeku Xfer(QC): 5 Car Transfer (QC): 4 (CGA) Gait Training Does the Patient Walk?: Yes Walk 10 feet (QC): 4 Walk 50 ft with 2 Turns(QC): 4 Walk 150 ft (QC): 4 (CGA) Walking 10ft/uneven surface-QC: 4 (CGA) Gait Persons Needed: 1 Gait Assistive Device: FWW Wheelchair Training Does the Pt Use a Wheelchair?: No Stair Training #of Steps: 1 1 Step (curb) (QC): 3 (slight LOB due to catching heal on step. Less then 50% help) 4 Steps (QC): 88 12 Steps (QC): 88 Balance Picking up an Object (QC): 5 ADL-Treatment Eating (QC): 7 Oral Hygiene (QC): 7 Shower/Bathe Self (QC): 7 Upper Body Dressing (QC): 7 Lower Body Dressing (QC): 7 On/Off Footwear (QC): 7 Toileting Hygiene (QC): 4 (CGA, pt managed pants up/down and performed hygiene) Assessment/Plan Assessment and Plan Assess & Plan/Chief Complaint Assessment: Debility LLL PNA s/p treatment at [place] 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 Anemia Hypothyroidism Advanced age Frail status Decreased albumin HLP HTN Delirium Iron deficiency failed PO iron ordered IV iron h/o breast cancer Plan: O2 Prednisone as directed Home meds Nebs IS BM regimen IRF protocol Iron infusions after Midline (1) Debility (2) Pneumonia (3) Iron deficiency (4) Anemia (5) Hypothyroidism (6) Rales (7) Renal insufficiency (8) GERD (gastroesophageal reflux disease) (9) Immunosuppression (10) LLL pneumonia (11) Perinuclear antineutrophil cytoplasmic antibodies (p-ANCA) and myeloperoxidase (MPO) antibodies positive (12) Delirium (13) Thrombocytopenia (14) Serum albumin decreased (15) Hypoxia (16) Mouth sores (17) History of breast cancer LYDIA MEJIA DO Jul 24, 2019 11:27
--- NOTE | 2019-07-24 11:42 | Physical Therapy Daily Note ---
PT Daily Note-Current Subjective Pt. agrees to Rx. States she feels even better now than she did earlier Pain Location: No Pain Reported Mental Status Patient Orientation: Normal For Age Transfers SCALE: Activities may be completed with or without assistive devices. 4-Zjsajzdxdj-grlqfqq completes the activity by him/herself with no assistance from a helper. 5-Set-up or Clean-up Assistance-helper sets up or cleans up; patient completes activity. [place] assists only prior to or following the activity. 4-Supervision or Touching Assistance-helper provides verbal cues and/or touching/steadying and/or contact guard assistance as patient completes activity. Assistance may be provided throughout the activity or intermittently. 3-Partial/Moderate Assistance-helper does LESS THAN HALF the effort. [place] lifts, holds or supports trunk or limbs, but provides less than half the effort. 2-Substantial/Maximal Assistance-helper does MORE THAN HALF the effort. [place] lifts or holds trunk or limbs and provides more than half the effort. 1-Jlgbkxsnp-emudon does ALL the effort. Patient does none of the effort to complete the activity. Or, the assistance of 2 or more helpers is required for the patient to complete the activity. If activity was not attempted, code reason: 7-Patient Refused. 9-Not Applicable-not attempted and the patient did not perform the activity b efore the current illness, exacerbation or injury. 10-Not Attempted due to Environmental Limitations-(lack of equipment, weather restraints, etc.). 88-Not Attempted due to Medical Conditions or Safety Concerns. all sit to stand and sup to sit SBA to MoD I Weight Bearing Weight Bearing/Tolerated Weight Bearing/Tolerated Gait Training Does the Patient Walk?: Yes Gait Assistive Device: FWW 160, 75x2, 15 all SBA , slow with rest breaks, all O2 sat checks 95% on room air Stair Training Stair Training: Handrails/: 2 handrails #of Steps: 4 4 Steps (QC): 4 Stairs: Pattern: Reciprocal Exercises Seated Therapy Exercises: Ankle pumps, Sit to stand, Long arc quads, Hip flexio n, Hip abd/add Seated Reps: 12 NuStep Minutes: 10 NuStep Workload: 3 Assessment Current Status: Good Progress PT Short Term Goals Short Term Goals Time Frame: Jul 30, 2019 Roll Left & Right: 5 Sit to lyin Lying to sitting on side of be: 5 Sit to stand: 4 (SBA) Chair/htm-as-ijyyg transfer: 4 (SBA) Car transfer: 4 (SBA) Walk 10 feet: 4 (SBA) Walk 50 feet with two turns: 4 (SBA) Walk 150 feet: 4 (SBA) Walking 10ft on uneven surface: 4 (SBA) 1 step (curb): 4 (SBA) 4 steps: 4 (CGA) 12 steps: 4 (CGA) PT Program Control Analyst Goals Program Control Analyst Goals PT Alf Goals Time Frame: Aug 22, 2019 Roll Left & Right (QC): 5 Sit to Lying (QC): 5 Lying-Sitting on Side/Bed(QC): 5 Sit to Stand (QC): 5 Chair/[place]ab-ao-Lefcy Xfer(QC): 5 Car Transfer (QC): 5 Does the Patient Walk: Yes Walk 10 feet (QC): 5 Walk 50ft with 2 Turns (QC): 5 Walk 150 ft (QC): 5 Walking 10ft on Uneven Surface: 5 1 Step (curb) (QC): 5 4 Steps (QC): 5 12 Steps (QC): 5 Picking up an Object (QC): 5 PT Plan Treatment/Plan Treatment Plan: Continue Plan of Care Treatment Plan: Bed Mobility, Concurrent Therapy, Education, Functional Activity Gwyn, Functional Strength, Group Therapy, Gait, Safety, Therapeutic Exercise, Transfers Treatment Duration: Aug 22, 2019 Frequency: At least 5 of 7 days/Wk (IRF) Estimated Hrs Per Day: 1.5 hours per day Patient and/or Family Agrees t: Yes Safety Risks/Education Patient Education: Gait Training, Transfer Techniques, Steps, Correct Posit ioning, Disease Process, Safety Issues Teaching Recipient: Patient Teaching Methods: Demonstration, Discussion Response to Teaching: Verbalize Understanding, Return Demonstration, Reinforcem ent Needed Time/GCodes Time In: 1115 Time Out: 1145 Total Billed Treatment Time: 30 Total Billed Treatment 1,EX15m,FA15m BILL CAIN SCRAP BALER Jul 24, 2019 11:42
--- NOTE | 2019-07-24 11:46 | Occupational Ther Daily Note ---
OT Current Status-Daily Note Subjective Pt sitting in chair, agrees to therapy. No pain reported ADL-Treatment Pt declined shower this morning secondary to fatigue, agrees to sponge bath. Pt doffed clothing with SBA. Upper body bathing completed with set up. Pt requires min assist for lower body bathing. Pt required min assist to fasten bra in back. Dons pullover shirt with set up. Pt able to thread bilateral LE into pants. Stood with CGA for balance during pant hike. Pt requires min assist to don socks. Pt fatigues quickly with activity and requires frequent rest breaks. Sit to stand with SBA. Gait to restroom with FWW. Pt stood at sink to brush teeth and comb hair with set up. Seated rest break taken after completion of task. Therapy Code Descriptions/Definitions Functional [place] Measure: 0=Not Assessed/NA 4=Minimal Assistance 1=Total Assistance 5=Supervision or Setup 2=Maximal Assistance 6=Modified [place] 3=Moderate Assistance 7=Complete IndependenceSCALE: Activities may be completed with or without assistive devices. 0-Tjjemklion-ckkcmpo completes the activity by him/herself with no assistance from a helper. 5-Set-up or Clean-up Assistance-helper sets up or cleans up; patient completes activity. [place] assists only prior to or following the activity. 4-Supervision or Touching Assistance-helper provides verbal cues and/or touching/steadying and/or contact guard assistance as patient completes activity. Assistance may be provided throughout the activity or intermittently. 3-Partial/Moderate Assistance-helper does LESS THAN HALF the effort. [place] lifts, holds or supports trunk or limbs, but provides less than half the effort. 2-Substantial/Maximal Assistance-helper does MORE THAN HALF the effort. [place] lifts or holds trunk or limbs and provides more than half the effort. 7-Ofotronqr-vvnuvg does ALL the effort. Patient does none of the effort to complete the activity. Or, the assistance of 2 or more helpers is required for the patient to complete the activity. If activity was not attempted, code reason: 7-Patient Refused. 9-Not Applicable-not attempted and the patient did not perform the activity before the current illness, exacerbation or injury. 10-Not Attempted due to Environmental Limitations-(lack of equipment, weather restraints, etc.). 88-Not Attempted due to Medical Conditions or Safety Concerns. Oral Hygiene (QC): 5 Shower/Bathe Self (QC): 3 Upper Body Dressing (QC): 3 Lower Body Dressing (QC): 4 (CGA) On/Off Footwear: 3 Other Treatment Pt completed bilateral UE exercises to increase strength needed for ADLs and transfers. Pt performed 4 exercises x10 reps with minimal resistance (yellow) theraband. Rest breaks between exercises. Skilled cues for proper exercise technique. Pt sitting in chair with needs met and chair alarm in place after session. OT Short Term Goals Short Term Goals Time Frame: Aug 05, 2019 Oral hygiene: 5 Lower body dressin Putting on/taking off footwear: 5 OT Digital Press Operator Goals Digital Press Operator Goals Time Frame: Aug 21, 2019 Eating (QC): 6 Oral Hygiene (QC): 6 Toileting Hygiene (QC): 6 Shower/Bathe Self (QC): 6 Upper Body Dressing (QC): 6 Lower Body Dressing (QC): 6 On/Off Footwear (QC): 6 Additional Goals: 1-Demonstrate ADL Tasks, 2-Verbalize Understanding, 3- ImproveStrength/Gwyn 1=Demonstrate adherence to instructed precautions during ADL tasks. 2=Patient will verbalize/demonstrate understanding of assistive devices/modifications for ADL. 3=Patient will improve strength/tolerance for activity to enable patient to perform ADL's. OT Education/Plan Discharge Recommendations Plan/Recommendations: Continue POC Treatment Plan/Plan of Care Patient would benefit from OT for education, treatment and training to promote independence in ADL's, mobility, safety and/or upper extremity function for ADL's. Plan of Care: ADL Retraining, Functional Mobility, Group Exercise/Act as Ind, UE Funct Exercise/Act Treatment Duration: Aug 21, 2019 Frequency: At least 5 of 7 days/Wk (IRF) Estimated Hrs Per Day: 1.5 hours per day Agreement: Yes Rehab Potential: Good Time/GCodes Start Time: 10:00 Stop Time: 11:15 Total Time Billed (hr/min): 75 Billed Treatment Time 1 visit, ADLx4(60minutes), EX(15minutes) NILSA GARCIA OT Jul 24, 2019 11:46
--- NOTE | 2019-07-24 12:05 | Occupational Ther Daily Note ---
OT Current Status-Daily Note Subjective Pt sitting in chair, agrees to therapy. ADL-Treatment Therapy Code Descriptions/Definitions Functional [place] Measure: 0=Not Assessed/NA 4=Minimal Assistance 1=Total Assistance 5=Supervision or Setup 2=Maximal Assistance 6=Modified [place] 3=Moderate Assistance 7=Complete IndependenceSCALE: Activities may be completed with or without assistive devices. 1-Ghkmwjvafp-upmcamx completes the activity by him/herself with no assistance from a helper. 5-Set-up or Clean-up Assistance-helper sets up or cleans up; patient completes activity. [place] assists only prior to or following the activity. 4-Supervision or Touching Assistance-helper provides verbal cues and/or touching/steadying and/or contact guard assistance as patient completes activity. Assistance may be provided throughout the activity or intermittently. 3-Partial/Moderate Assistance-helper does LESS THAN HALF the effort. [place] lifts, holds or supports trunk or limbs, but provides less than half the effort. 2-Substantial/Maximal Assistance-helper does MORE THAN HALF the effort. [place] lifts or holds trunk or limbs and provides more than half the effort. 1-Xemvjywzm-kbzqpc does ALL the effort. Patient does none of the effort to c omplete the activity. Or, the assistance of 2 or more helpers is required for the patient to complete the activity. If activity was not attempted, code reason: 7-Patient Refused. 9-Not Applicable-not attempted and the patient did not perform the activity before the current illness, exacerbation or injury. 10-Not Attempted due to Environmental Limitations-(lack of equipment, weather restraints, etc.). 88-Not Attempted due to Medical Conditions or Safety Concerns. Other Treatment Pt completed bilateral UE fine motor task with 1# weights in place to promote reaching, strength, and activity tolerance. Pt has good participation in task. Rest breaks as needed. Pt sitting in chair with needs met and chair alarm in place after session. OT Short Term Goals Short Term Goals Time Frame: Aug 05, 2019 Oral hygiene: 5 Lower body dressin Putting on/taking off footwear: 5 OT Correction Goals Correction Goals Time Frame: Aug 21, 2019 Eating (QC): 6 Oral Hygiene (QC): 6 Toileting Hygiene (QC): 6 Shower/Bathe Self (QC): 6 Upper Body Dressing (QC): 6 Lower Body Dressing (QC): 6 On/Off Footwear (QC): 6 Additional Goals: 1-Demonstrate ADL Tasks, 2-Verbalize Understanding, 3-Im proveStrength/Gwyn 1=Demonstrate adherence to instructed precautions during ADL tasks. 2=Patient will verbalize/demonstrate understanding of assistive devices/modifications for ADL. 3=Patient will improve strength/tolerance for activity to enable patient to perform ADL's. OT Education/Plan Discharge Recommendations Plan/Recommendations: Continue POC Treatment Plan/Plan of Care Patient would benefit from OT for education, treatment and training to promote independence in ADL's, mobility, safety and/or upper extremity function for ADL's. Plan of Care: ADL Retraining, Functional Mobility, Group Exercise/Act as Ind, UE Funct Exercise/Act Treatment Duration: Aug 21, 2019 Frequency: At least 5 of 7 days/Wk (IRF) Estimated Hrs Per Day: 1.5 hours per day Agreement: Yes Rehab Potential: Good Time/GCodes Start Time: 11:45 Stop Time: 12:00 Total Time Billed (hr/min): 15 Billed Treatment Time 1 visit, EX(15minutes) NILSA GARCIA OT Jul 24, 2019 12:05
--- NOTE | 2019-07-24 12:58 | ST Cognitive Linguistic Eval ---
Speech Evaluation-General Medical Diagnosis pneumonia Onset Date: Jul 18, 2019 Therapy Diagnosis Therapy Diagnosis: Cognitive-communication Referral Referring Physician: Dr. Copeland Medical History Pertinent Medical History: HTN Reviewed History: Yes Social History Current Living Status: Children (daughter) Speech PLF-Current Status Prior Level of Function Patient lived at home with her daughter. She was able to meet much of her daily needs. Subjective Patient was pleasant and cooperative with the cognitive assessment. Language Eval: Auditory Comprehends Simple Yes/No Ques: Functional Indent/Objects [place]: Functional Ident/Pics in [place]: Functional Follows 1-Step Commands: Functional Follows Complex Directions: Functional Follows General Conversations: Functional Language Eval: Verbal Language Completes Spontaneous Greeting: Functional Produces Auto, Serial Info: Functional Imitates Simple Words/Phrases: Functional Word Finding: Functional Requests Basic Needs: Functional States Basic Personal Info: Functional Expresses Complex Ideas: Functional Objective Cognitive Domain Attention: WNL Memory: Mild Problem Solving: Functional Executive Functions: WNL Visuospatial Skills: WNL Composite Severity Rating: WNL Clock Drawing Severity Rating: WN Score: 27/30, within normal range of function Objective Formal/Standardized Tests [facility] Mental Status ([facility]) Results 27/30, within normal range of function Oral Motor/Speech Production Within Normal Limits Impression The patient is a pleasant 79 year old female who was admitted to the ARU s/p pneumonia. The patient was given the SLUMS with a score of 27/30 obtained. This score falls in the normal range of function. Further ST services are not warranted at this time. Speech Patient Assess Expression of Ideas/Wants: Expression (4) Understanding Verbal Content: Understands (4) Brief Interview-Mental Status: Yes Repetition of Three Words: Three (3) Temporal Orientation: Year: Correct (3) Temporal Orientation: Month: Accurate within 5 days(2) Temporal Orientation: Day: Correct (1) Recall : Wear to say "Sock": Yes, no cue required (2) Recall : Color: Yes, after cueing (1) Recall : Bed: Yes,after cueing (1) Memory/Recall Ability: Current season, Location of own room, That he or she is in a hsp/hsp unit Speech-Plan Patient/Family Goals Patient/Family Goals: Patient plans on returning to her prior living arrangement. Treatment Plan Speech Therapy Treatment Plan: Discontinue ST Treatment Duration: Jul 24, 2019 Frequency: 1 time per week Estimated Hrs Per Day: .25 hour per day Rehab Potential: Good Barriers to Learning: None identified Pt/Family Agrees to Plan: Yes Safety Risks/Education Teaching Recipient: Patient Teaching Methods: Discussion Response to Teaching: Verbalize Understanding Education Topics Provided: Safety within her room and communication of her wants/needs Time Speech Therapy Time In: 09:00 Speech Therapy Time Out: 09:15 Total Billed Time: 15 Billed Treatment Time 1, RAJAT Moreno Jul 24, 2019 12:58
--- NOTE | 2019-07-24 13:23 | NUR ---
"RD ASSESSMENT PMHx: hypothyroidism; renal failure; CA(breast) PT INTERACTION: Pt was awake and pleasant during nutrition assessment. Pt states current appetite is pretty good. Note avg PO intake 50-75% x2meal, per chart review. Pt states following a regular diet at home, and has some difficulty swallowing d/t mouth sores. Pt states no recent issues with n/v/c at this time. Pt states some recent issues with diarrhea lasting for several days. Note last BM was 07/22 and pt currently on bowel regimen of colace BID; senna BID; and miralax BID, per chart review. Pt states recent 15# wt loss over the last 6mon. Note unable to determine recent wt hx, per chart review. ABNORMAL NUTRITION-RELATED LAB VALUES LOW: Ca 7.6; Pro 4.4; alb 2.5 HIGH: BUN 61; cr 1.50 Est. kcal needs: 1913-0732 kcal | 25-30 kcal/kg Est. Pro needs: 58-70 g Pro | 1.0-1.2 g Pro/kg PES STATEMENT: Inadequate oral intake (NI-2.1) related to loss of appetite | diarrhea as evidenced by pt interview | avg PO intake 50-75% x2meal INTERVENTION: Continue with current diet order of Regular diet. Pt may benefit from nutrition supplementation if PO intake declines. Will continue to follow and reassess as pt needs, intake, and status change. MONITOR/EVALUATE: PO Intake; Plan of Care; Hydration Status; Weight Status; Lab Values Malik Ford, MS, RD, LD"
--- NOTE | 2019-07-24 14:47 | Diagnostic Imaging Report ---
INDICATION: Pneumonia. COMPARISON: July 09, 2014. TECHNIQUE: Frontal and lateral radiograph of the chest dated July 24, 2019. FINDINGS: Surgical clips are again identified overlying the left axillary region. Right IJ central venous catheter is present with the distal tip overlying the expected location of the superior aspect of the superior vena cava. No pneumothorax. The cardiac silhouette is within normal limits in size. No significant pulmonary vascular congestion. Background chronic obstructive pulmonary disease is noted with associated pulmonary hyperinflation and flattening of the diaphragm. Focal nodular opacity is noted within the right midlung. Additionally, linear interstitial markings are noted within the left lung base. Trace right pleural effusion. No pneumothorax. No acute osseous abnormality. IMPRESSION: Nodular density within the right midlung. This is nonspecific, though new since 2014. This could relate to focal infiltrate or atelectasis, though pulmonary nodule/neoplasm is not excluded. Recommend follow-up radiographs in 10 to 14 days to reevaluate. If this persists at that time, then a CT of the chest would be indicated. Left basilar infiltrate or less likely atelectasis. Background chronic obstructive pulmonary disease. Trace right pleural effusion. Additional postsurgical and chronic findings, as above. Dictated by: Dictated on workstation # [id number]
--- NOTE | 2019-07-24 15:02 | NUR ---
CM/SS ADMISSION ASSESSMENT Patient was admitted to ARU 07/23/19 from [facility] for Debility. Other comorbidities, in part, include Immunosuppression, abnormal immunological findings p-ANCA and MPO, Renal Insufficiency, LLL Pneumonia, Hypoxia. Prior to hospitalization patient's daughter Bethany Dinh resided with her in [facility]. Bethany is employed timekeeper and patient had been staying alone at home. Both describe that patient started declining in April 2019 with renal failure and newly diagnosed immunological disease. Family members have experienced multiple challenges in a short period of time and continue to do so. 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 CAREGIVER AVAILABILITY: As noted, Bethany works timekeeper. Her son in law has just deployed to [place], she is assisting her daughter and grandchildren while her daughter continues her education toward [employer]. Bethany will not be available /, patient's two son's will likely not be either. Lack of 26/11 caregiver should be considered by the team re goals. PCP: Dr. Brenda Cagle MD, [employer] D[employer]: Patient has been IADL until rapid onset health complications, she has no DME. Will partner with therapy team to asses for new assistive device needs during patient stay on ARU relative to home performance and safety. PHARMACY: [facility] in [facility] ADVANCED DIRECTIVE: None completed at this time, patient stated her children are aware of her wishes. INSURANCE: [employer] [facility], will explore whether patient has Medicare at age 79. CONTACTS: Bethany Dinh, Daughter [address] (Patient's home) [place] [address] Giuliano Steven, Son [address] [place] [address] Elias Steven, Son [place] Patient indicated understanding of the purpose and process of the weekly Patient Care Conference each Saturday.
--- NOTE | 2019-07-24 15:30 | NUR ---
MIDLINE PUT IN RIGHT UPPER ARM BY CECILIA MICHAEL. VENOFER STARTED. GOOD BLOOD RETURN AND FLUSHES EASILY. RIGHT I.J. LINE DC'D AND PRESSURE DRESSING APPLIED.
[2019-07-24] MEDS: IRON SUCROSE 200 MG/10 ML (VENOFER) VIAL IV SCH (15:57)
[2019-07-24 16:00] VITALS: BP 155/83
[2019-07-24] MEDS ORDERED: CATHETER FLUSH 10 ML SYR IV PRN (16:00)
--- NOTE | 2019-07-24 17:36 | Individualized Plan of Care ---
Individualized Plan of Care Rehab Nursing IPOC Order Admission Date Jul 23, 2019 at 15:40 Current Orders Orders Admission Order(Inpt,Obs,Sdc) (07/23/19 12:00) Vital Signs: Per Unit Policy ( 08,16,00 (07/23/19 12:00) Sahil Tripp , (07/23/19 12:00) Sequential Compression Device Q4H (07/23/19 12:00) Learning Support Services Director-Inpt Rehab Con (07/23/19 12:00) Rehab Nursing Orders-Ipoc (07/23/19 12:00) Physical Therapy Rehab Orders (07/23/19 12:00) Occupational Therapy Rehab Ord (07/23/19 12:00) Speech Therapy Rehab Orders (07/23/19 12:00) Cbc With Automated Diff (07/24/19 06:00) Comprehensive Metabolic Panel (07/24/19 06:00) General/Regular (07/23/19 Dinner) Intake & Output 06,14,22 (07/23/19 12:00) Precautions (Aru) (07/23/19 12:00) Weekly Weight WEEK (07/23/19 12:00) Rehab-Intensity Of Therapy (07/23/19 12:00) Initiate Admission Nursing Pro .admission (07/23/19 12:00) Acetaminophen Tablet (Tylenol Tablet) (07/23/19 12:00) Alprazolam Tablet (Xanax Tablet) (07/23/19 12:00) Calcium Carbonate Chew Tablet (Antacid C (07/23/19 12:00) Diphenhydramine Tablet (Benadryl Tablet) (07/23/19 12:00) Docusate Sodium Capsule (Colace Capsule) (07/23/19 21:00) Docusate Sodium Capsule (Colace Capsule) (07/23/19 12:00) Bisacodyl Suppository (Dulcolax Supposit (07/23/19 12:00) Lactulose Oral Solution (Enulose Oral So (07/23/19 12:00) Na Phos/Na Biphos Enema (Fleet Enema Reagan (07/23/19 12:00) Guaifenesin/Codeine Syrup (Robitussin Ac (07/23/19 12:00) Loperamide Tablet (Imodium Tablet) (07/23/19 12:00) Enoxaparin Injection (Lovenox Injection) (07/23/19 16:00) Melatonin Tablet (Melatonin Tablet) (07/23/19 12:00) Polyethylene Glycol Powder Pkt (Miralax (07/23/19 21:00) Ondansetron Oral Dissolve Tab (Zofran (07/23/19 12:00) Senna S Tablet (Senokot S Tablet) (07/23/19 21:00) Initiate Admission Nursing Pro .admission (07/23/19 12:00) Admission Arrival Bed Request (07/23/19 14:15) Patient Visit (07/23/19 ) Pt Eval Moderate Complexity (07/23/19 ) Exercise Therap, Ea 15 Min (07/23/19 ) Functional Activities, Ea 15 (07/23/19 ) Request Ot Evaluate & Treat (07/23/19 15:58) Ferrous Sulfate Tablet (Feosol Tablet) (07/24/19 08:00) Furosemide Tablet (Lasix Tablet) (07/24/19 09:00) Hydrocodone/Apap 7.5/325 Tab (Lortab 7. (07/23/19 17:00) Levothyroxine Tablet (Synthroid Tablet) (07/24/19 06:00) Therapeutic Multivitamin Tab (Vitamins, (07/24/19 07:00) Pantoprazole Tablet (Protonix Tablet) (07/24/19 09:00) (Nf) Diphenhydramine Hcl (Benadryl) (07/23/19 17:00) (Nf) Lactobacillus Rhamnosus Gg (Culture (07/23/19 21:00) (Nf) Loperamide Hcl (Loperamide) (07/23/19 17:00) (Nf) Phenol (Chloraseptic) (07/23/19 17:00) (Nf) [Magic Mouthwash] (07/23/19 17:00) Loperamide Tablet (Imodium Tablet) (07/23/19 17:00) Diphenhydramine Tablet (Benadryl Tablet) (07/23/19 17:00) Phenol Throat [place] (Chloraseptic [place]) (07/23/19 17:00) Lactobacillus Acidophilus Cap (Acidophil (07/23/19 21:00) Ergocalciferol Capsule (Vitamin D2 Capsu (07/26/19 09:00) Prednisone Tablet (Deltasone Tablet) (07/24/19 08:00) Lidocaine 2% Viscous 100 Ml (Xylocaine V (07/23/19 17:15) Incentive Spirometry Initial (07/23/19 18:06) Incentive Spirometry (Nursing) Q2H (07/23/19 18:06) Incentive Spirometry (Nursing) Q2H (07/23/19 18:06) Albuterol Pre-Mix Nebs (Rt) (Proventil (07/23/19 21:00) Svn Small Volume Nebulizer (07/23/19 18:06) Chest Pa/Lat (2 View) (07/24/19 07:00) Iron Test (Fe) (07/24/19 06:00) Venous Access Request Order (07/24/19 10:37) Iron Sucrose Injection (Venofer Injectio (07/24/19 10:45) Venous Access Request Order (07/24/19 10:55) Patient Visit (07/24/19 ) Functional Activities, Ea 15 (07/24/19 ) Gait Training, Ea 15 Min (07/24/19 ) Exercise Therap, Ea 15 Min (07/24/19 ) Patient Visit (07/24/19 ) Speech Sound Lang Comp (07/24/19 ) Enoxaparin Injection (Lovenox Injection) (07/24/19 18:00) Sodium Chloride Flush (Catheter Flush Sy (07/24/19 16:00) Sodium Chloride Flush (Catheter Flush Sy (07/24/19 22:00) Amb Us Guide Vascular Access (07/24/19 ) Rehab Nursing Orders: Ongoing Assess. of Cognitive Status, Ongoing Assess. of Function Status, Bladder Management, Bladder Scan, Bladder Training, Bowel Manag ement, Bowel Training, Disease Management & Educaiton, DVT Prophylaxis, Fall Prevention, Fluid/Electrolyte/Nutrition Mgmt, Infection Prevention, Medication Management & Education, Management of Risks & Complications, Management of Skin Intergrity, Nutrition Management, Pain Management, Patient/Family Support, Safety Management, Swallow Precautions Intensity of Therapy to be met Patient to be seen: Min.3h per day/5 of 7d PT IPOC Problem List: Activity Tolerance, Functional Strength, Safety, Balance, Gait, Transfer, Bed Mobility, ROM Treatment Plan: Continue Plan of Care Bed Mobility, Concurrent Therapy, Education, Functional Activity Gwyn, Functional Strength, Group Therapy, Gait, Safety, Therapeutic Exercise, Transfers Treatment Duration: Aug 22, 2019 Frequency: At least 5 of 7 days/Wk (IRF) Estimated Hrs Per Day: 1.5 hours per day OT IPOC Problems: Decreased Activ Tolerance, Decreased Safety Aware, Decreased UE Strength, Impaired Funct Balance, Impaired I ADL's, Impaired Self-Care Skills OT Treatment, Training and Edu: Yes Plan of Care: ADL Retraining, Functional Mobility, Group Exercise/Act as Ind, UE Funct Exercise/Act Treatment Duration: Aug 21, 2019 Frequency: At least 5 of 7 days/Wk (IRF) Estimated Hrs Per Day: 1.[address] IPOC Speech Therapy Treatment Plan: Discontinue ST Treatment Duration: Jul 24, 2019 Frequency: 1 time per week Estimated Hrs Per Day: .25 hour per day Learning Support Services Director/Case Mgmt Learning Support Services Director/Case Managemen: Discharge Planning Dietitian/Program Architect Dietitian/Program Architect to monitor nutritional status and make changes and/or rec ommendations as needed and work with speech pathology on dietary upgrades as the occur. Physician IPOC Medical Issues being managed closely and that require the 24 hour availability of a physician: Patient with frail status and prednisone dependent and immunocompromised with severe anemia and malnutrition and renal insufficiency at high risk for decompensation Medical Issues: Bowel/Bladder Function, DVT Prophylaxis, Falls Precautions, Fluid/Electrolyte/Nutrition Balance, Infection Protection, Pain Management Brief Synthesis of Preadmission Screen, Post-Admission Evaluation, and Therapy Evaluations: PT OT will focus on fall prevention and increasing stamina and endurance and build nutrition reserve Medical Prognosis: Good Anticipated Length of Stay: 7 days LYDIA MEJIA DO Jul 24, 2019 17:35
[2019-07-24] MEDS ORDERED: ENOXAPARIN 30 MG/0.3 ML (LOVENOX) SYR SC SCH (18:00)
[2019-07-24] MEDS: CATHETER FLUSH 10 ML SYR IV SCH (20:45)
[2019-07-25 05:51] VITALS: BP 122/66
[2019-07-25] MEDS: LEVOTHYROXINE 88 MCG (LEVOTHORID) TAB PO SCH (06:06)
[2019-07-25] MEDS: MULTIVIT W/MINERALS TAB (THERAGRAN M) PO SCH (06:06)
[2019-07-25] MEDS: CATHETER FLUSH 10 ML SYR IV SCH ×3 (06:06→20:50)
[2019-07-25] MEDS: RT-ALBUTEROL SULF 2.5 MG/3 ML PRE-MIX VIAL INH SCH ×3 (07:51→19:16)
[2019-07-25] MEDS: PANTOPRAZOLE 40 MG (PROTONIX) TAB PO SCH (09:01)
[2019-07-25] MEDS: LACTOBACILLUS ACIDOPHILUS (PROBIOTIC) CAPSULE PO SCH ×2 (09:01→20:49)
[2019-07-25] MEDS: polyethylene glycoL POWDER 17 GM (MIRALAX) PACK PO SCH ×2 (09:02→20:48)
[2019-07-25] MEDS: predniSONE 20 MG TAB PO SCH (09:02)
[2019-07-25] MEDS: DOCUSATE SODIUM 100 MG (COLACE) CAP PO SCH ×2 (09:02→20:48)
[2019-07-25] MEDS: FUROSEMIDE 40 MG (LASIX) TAB PO SCH (09:02)
[2019-07-25] MEDS: SENNA W/DOCUSATE (SENOKOT S) TABLET PO SCH ×2 (09:03→20:48)
[2019-07-25] MEDS: VISC LIDOCAINE/ANTACID/DIPHENHYDRAMINE 1:1:1 120 ML PO PRN ×3 (09:09)
--- NOTE | 2019-07-25 09:11 | Occupational Ther Daily Note ---
OT Current Status-Daily Note Subjective Pt seen EOB, finished with breakfast. Agreeable to OT treat. Pt denies pain Mental Status/Objective Patient Orientation: Person, Place, Situation ADL-Treatment Therapy Code Descriptions/Definitions Functional [place] Measure: 0=Not Assessed/NA 4=Minimal Assistance 1=Total Assistance 5=Supervision or Setup 2=Maximal Assistance 6=Modified [place] 3=Moderate Assistance 7=Complete IndependenceSCALE: Activities may be completed with or without assistive devices. 3-Jlpjmukuek-gtwywii completes the activity by him/herself with no assistance from a helper. 5-Set-up or Clean-up Assistance-helper sets up or cleans up; patient completes activity. [place] assists only prior to or following the activity. 4-Supervision or Touching Assistance-helper provides verbal cues and/or touching/steadying and/or contact guard assistance as patient completes activity. Assistance may be provided throughout the activity or intermittently. 3-Partial/Moderate Assistance-helper does LESS THAN HALF the effort. [place] lifts, holds or supports trunk or limbs, but provides less than half the effort. 2-Substantial/Maximal Assistance-helper does MORE THAN HALF the effort. [place] lifts or holds trunk or limbs and provides more than half the effort. 2-Kvrkftdtn-khzhdu does ALL the effort. Patient does none of the effort to complete the activity. Or, the assistance of 2 or more helpers is required for the patient to complete the activity. If activity was not attempted, code reason: 7-Patient Refused. 9-Not Applicable-not attempted and the patient did not perform the activity before the current illness, exacerbation or injury. 10-Not Attempted due to Environmental Limitations-(lack of equipment, weather restraints, etc.). 88-Not Attempted due to Medical Conditions or Safety Concerns. Eating (QC): 6 Oral Hygiene (QC): 6 (IND at sink with 2WW) Shower/Bathe Self (QC): 7 Upper Body Dressing (QC): 7 Lower Body Dressing (QC): 7 Other Treatment Pt completes sit to stand with SBA, stands for 5 min while RT administers breathing treatment. Pt able to maintain BUE off walker during this time, utilizes one hand in shoulder flexion for increased balance activity, able to maintain for 2 breaths with cues for deep breaths, repeats 5x. Pt returns to sit post RT. Brushes teeth at sink with IND. Ambulates with SBA to therapy gym. Completes standing ex with yellow theraband: bicep curls (5 reps) and back/ shoulder extensions (10 reps, requires cues for counter balance as pt pulls back). Pt returns to sit, completes shoulder flexion (5 reps bilaterally) and horizontal abduction (10 reps). Pt returns to recliner in room, all needs met, call light in reach. Education OT Patient Education: Correct positioning, Exercise program, Home exercise program, Purpose of tx/functional activities Teaching Recipient: Patient Teaching Methods: Demonstration, Discussion Response to Teaching: Verbalize Understanding, Return Demonstration OT Short Term Goals Short Term Goals Time Frame: Aug 05, 2019 Oral hygiene: 5 Lower body dressin Putting on/taking off footwear: 5 OT [employer] Goals [facility] Goals Time Frame: Aug 21, 2019 Eating (QC): 6 Oral Hygiene (QC): 6 Toileting Hygiene (QC): 6 Shower/Bathe Self (QC): 6 Upper Body Dressing (QC): 6 Lower Body Dressing (QC): 6 On/Off Footwear (QC): 6 Additional Goals: 1-Demonstrate ADL Tasks, 2-Verbalize Understanding, 3- ImproveStrength/Gwyn 1=Demonstrate adherence to instructed precautions during ADL tasks. 2=Patient will verbalize/demonstrate understanding of assistive devices/modifications for ADL. 3=Patient will improve strength/tolerance for activity to enable patient to perform ADL's. OT Education/Plan Problem List/Assessment Assessment: Decreased Activ Tolerance, Decreased UE Strength, Impaired I ADL's, Impaired Self-Care Skills Discharge Recommendations Plan/Recommendations: Continue POC Therapy Discharge Recommendati: Home & Family Treatment Plan/Plan of Care Treatment,Training & Education: Yes Patient would benefit from OT for education, treatment and training to promote independence in ADL's, mobility, safety and/or upper extremity function for ADL's. Plan of Care: ADL Retraining, Functional Mobility, Group Exercise/Act as Ind, UE Funct Exercise/Act Treatment Duration: Aug 21, 2019 Frequency: At least 5 of 7 days/Wk (IRF) Estimated Hrs Per Day: 1.5 hours per day Agreement: Yes Rehab Potential: Good Time/GCodes Start Time: 07:45 Stop Time: 08:15 Total Time Billed (hr/min): 30 Billed Treatment Time 1, EX 2 (30) CHRISTIANSON,MISTY OTR Jul 25, 2019 09:11
--- NOTE | 2019-07-25 10:34 | Physical Therapy Daily Note ---
PT Daily Note-Current Subjective Pt agreeable to PT session. Pt states she normally is on the go go go. 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 States she was not using an AD at all before this hospital stay Pain Numeric Pain Scale: 4 Location: Left Location Body Site: Back (pt report "kidney") Comment: coughing increases pain Appearance Pt sitting up in chair before and after therapy session, call light, phone and bedside table within reach, chair alarm activated Mental Status Patient Orientation: Normal For Age Transfers SCALE: Activities may be completed with or without assistive devices. 7-Uaejfecqzt-lulxktj completes the activity by him/herself with no assistance from a helper. 5-Set-up or Clean-up Assistance-helper sets up or cleans up; patient completes activity. [place] assists only prior to or following the activity. 4-Supervision or Touching Assistance-helper provides verbal cues and/or touching/steadying and/or contact guard assistance as patient completes activity. Assistance may be provided throughout the activity or intermittently. 3-Partial/Moderate Assistance-helper does LESS THAN HALF the effort. [place] lifts, holds or supports trunk or limbs, but provides less than half the effort. 2-Substantial/Maximal Assistance-helper does MORE THAN HALF the effort. [place] lifts or holds trunk or limbs and provides more than half the effort. 6-Vmqjhlxyb-ztojvf does ALL the effort. Patient does none of the effort to complete the activity. Or, the assistance of 2 or more helpers is required for the patient to complete the activity. If activity was not attempted, code reason: 7-Patient Refused. 9-Not Applicable-not attempted and the patient did not perform the activity before the current illness, exacerbation or injury. 10-Not Attempted due to Environmental Limitations-(lack of equipment, weather restraints, etc.). 88-Not Attempted due to Medical Conditions or Safety Concerns. Sit to Stand (QC): 6 Weight Bearing Weight Bearing/Tolerated Weight Bearing/Tolerated Gait Training Does the Patient Walk?: Yes Distance: 250, 150 Walk 10 feet (QC): 5 Walk 50 ft with 2 Turns(QC): 4 Walk 150 ft (QC): 4 Gait Persons Needed: 1 Gait Assistive Device: FWW Exercises NuStep Minutes: 15 NuStep Workload: 4 (seat and arms 7) Assessment Current Status: Good Progress PT Short Term Goals Short Term Goals Time Frame: Jul 30, 2019 Roll Left & Right: 5 Sit to lyin Lying to sitting on side of be: 5 Sit to stand: 4 (SBA) Chair/vzk-vn-leiff transfer: 4 (SBA) Car transfer: 4 (SBA) Walk 10 feet: 4 (SBA) Walk 50 feet with two turns: 4 (SBA) Walk 150 feet: 4 (SBA) Walking 10ft on uneven surface: 4 (SBA) 1 step (curb): 4 (SBA) 4 steps: 4 (CGA) 12 steps: 4 (CGA) PT Health Promotion Coordinator Goals Health Promotion Coordinator Goals PT Health Promotion Coordinator Goals Time Frame: Aug 22, 2019 Roll Left & Right (QC): 5 Sit to Lying (QC): 5 Lying-Sitting on Side/Bed(QC): 5 Sit to Stand (QC): 5 Chair/Auq-pb-Zsuvu Xfer(QC): 5 Car Transfer (QC): 5 Does the Patient Walk: Yes Walk 10 feet (QC): 5 Walk 50ft with 2 Turns (QC): 5 Walk 150 ft (QC): 5 Walking 10ft on Uneven Surface: 5 1 Step (curb) (QC): 5 4 Steps (QC): 5 12 Steps (QC): 5 Picking up an Object (QC): 5 PT Plan Treatment/Plan Treatment Plan: Continue Plan of Care Treatment Plan: Bed Mobility, Concurrent Therapy, Education, Functional Activity Gwyn, Functional Strength, Group Therapy, Gait, Safety, Therapeutic Exercise, Transfers Treatment Duration: Aug 22, 2019 Frequency: At least 5 of 7 days/Wk (IRF) Estimated Hrs Per Day: 1.5 hours per day Patient and/or Family Agrees t: Yes Safety Risks/Education Patient Education: Gait Training, Transfer Techniques, Reviewed Precautions, Safety Issues Teaching Recipient: Patient Teaching Methods: Demonstration, Discussion Response to Teaching: Verbalize Understanding, Return Demonstration Time/GCodes Time In: 815 Time Out: 845 Total Billed Treatment Time: 30 Total Billed Treatment 1 visit, EX x15 min, GT x15 min ANASTASIA EM AGRICULTURAL REAL ESTATE AGENT Jul 25, 2019 10:33
--- NOTE | 2019-07-25 11:46 | PM&R Progress Note ---
Subjective HPI/CC On Admission Date Seen by Provider: Jul 25, 2019 Time Seen by Provider: 11:45 Subjective/Events-last exam Midline placed in left arm yesterday but had to be removed since she neglected to tell the midline nurse that she had breast cancer on the left side and could not be placed there indicating delirium. Midline replaced in the right arm and is functioning well. Iron infusion initiated and tolerated well DC Lovenox and will reach out to pharmacy to renal dose Eliquis for DVT PPx. Lovenox was leaving significant hematomas CXR reviewed Right ribs hurt so will add K-pad Check meds and labs Conferred with RN Reviewed therapy notes Review of Systems General: Fatigue Pulmonary: Dyspnea, Cough Cardiovascular: Other (right rib pain) Objective Exam Vital Signs Vital Signs Date Time Temp Pulse Resp B/P (MAP) Pulse Ox O2 Delivery O2 Flow Rate FiO2 07/25/19 17:20 36.2 86 16 136/73 (94) 99 Room Air Capillary Refill : Less Than 3 SecondsLess Than 3 Seconds General Appearance: Anxious, Chronically ill, Thin HEENT: PERRL/EOMI, Normal ENT Inspection, Pharynx Normal Neck: Full Range of Motion, Normal Inspection, Non Tender, Supple Respiratory: Chest Non Tender, Lungs Clear, Normal Breath Sounds, No Accessory Muscle Use, No Respiratory Distress, Decreased Breath Sounds Cardiovascular: Regular Rate, Rhythm, No Edema, No Gallop, No JVD, No Murmur, Normal Peripheral Pulses Gastrointestinal: Normal Bowel Sounds, No Organomegaly, No Pulsatile Mass, Non Tender, Soft Back: Normal Inspection, No CVA Tenderness, No Vertebral Tenderness Extremity: Normal Capillary Refill, Normal Inspection, Normal Range of Motion, Non Tender, No Calf Tenderness Neurologic/Psychiatric: Alert, Oriented x3, No Motor/Sensory Deficits, taxi dancer II- XII Norm as Tested, Depressed Affect Skin: Normal Color, Warm/Dry Lymphatic: No Adenopathy Results/Procedures Lab Patient resulted labs reviewed. FIM Transfers Therapy Code Descriptions/Definitions Functional [place] Measure: 0=Not Assessed/NA 4=Minimal Assistance 1=Total Assistance 5=Supervision or Setup 2=Maximal Assistance 6=Modified [place] 3=Moderate Assistance 7=Complete IndependenceSCALE: Activities may be completed with or without assistive devices. 7-Klgndrujbm-mqnpawm completes the activity by him/herself with no assistance from a helper. 5-Set-up or Clean-up Assistance-helper sets up or cleans up; patient completes activity. [place] assists only prior to or following the activity. 4-Supervision or Touching Assistance-helper provides verbal cues and/or touching/steadying and/or contact guard assistance as patient completes activity. Assistance may be provided throughout the activity or intermittently. 3-Partial/Moderate Assistance-helper does LESS THAN HALF the effort. [place] lifts, holds or supports trunk or limbs, but provides less than half the effort. 2-Substantial/Maximal Assistance-helper does MORE THAN HALF the effort. [place] lifts or holds trunk or limbs and provides more than half the effort. 1-Ssdanznww-rnnmfe does ALL the effort. Patient does none of the effort to complete the activity. Or, the assistance of 2 or more helpers is required for the patient to complete the activity. If activity was not attempted, code reason: 7-Patient Refused. 9-Not Applicable-not attempted and the patient did not perform the activity befo re the current illness, exacerbation or injury. 10-Not Attempted due to Environmental Limitations-(lack of equipment, weather re straints, etc.). 88-Not Attempted due to Medical Conditions or Safety Concerns. Roll Left to Right (QC): 6 Sit to Lying (QC): 6 Sit to Stand (QC): 6 Chair/Ido-td-Egtro Xfer(QC): 5 Car Transfer (QC): 4 (CGA) Gait Training Does the Patient Walk?: Yes Distance: 250, 150 Walk 10 feet (QC): 5 Walk 50 ft with 2 Turns(QC): 4 Walk 150 ft (QC): 4 Walking 10ft/uneven surface-QC: 4 (CGA) Gait Persons Needed: 1 Gait Assistive Device: FWW Wheelchair Training Does the Pt Use a Wheelchair?: No Stair Training Stair Training: Handrails/: 2 handrails #of Steps: 4 1 Step (curb) (QC): 3 (slight LOB due to catching heal on step. 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 Anemia Hypothyroidism Advanced age Frail status Decreased albumin HLP HTN Delirium Iron deficiency failed PO iron ordered IV iron h/o breast cancer Plan: O2 Prednisone as directed Home meds Nebs IS BM regimen IRF protocol Iron infusions thru Midline K-pad to right ribs (1) Debility (2) Pneumonia (3) Iron deficiency (4) Anemia (5) Hypothyroidism (6) Rales (7) Renal insufficiency (8) GERD (gastroesophageal reflux disease) (9) Immunosuppression (10) LLL pneumonia (11) Perinuclear antineutrophil cytoplasmic antibodies (p-ANCA) and myeloperoxidase (MPO) antibodies positive (12) Delirium (13) Thrombocytopenia (14) Serum albumin decreased (15) Hypoxia (16) Mouth sores (17) History of breast cancer LYDIA MEJIA DO Jul 25, 2019 11:46
[2019-07-25] MEDS ORDERED: APIXABAN 2.5 MG (ELIQUIS) TABLET PO ONE (12:45)
[2019-07-25 17:20] VITALS: BP 136/73
[2019-07-25] MEDS: APIXABAN 2.5 MG (ELIQUIS) TABLET PO SCH (20:49)
[2019-07-26 05:07] VITALS: BP 137/79
[2019-07-26] MEDS: LEVOTHYROXINE 88 MCG (LEVOTHORID) TAB PO SCH (06:14)
[2019-07-26] MEDS: MULTIVIT W/MINERALS TAB (THERAGRAN M) PO SCH (06:14)
[2019-07-26] MEDS: CATHETER FLUSH 10 ML SYR IV SCH ×3 (06:14→20:17)
[2019-07-26] MEDS: RT-ALBUTEROL SULF 2.5 MG/3 ML PRE-MIX VIAL INH SCH ×2 (06:53→18:54)
[2019-07-26] MEDS ORDERED: VITAMIN D2 1.25 MG (50,000 UNITS) CAP PO SCH (09:00)
[2019-07-26] MEDS: DOCUSATE SODIUM 100 MG (COLACE) CAP PO SCH ×2 (09:36→19:27)
[2019-07-26] MEDS: predniSONE 20 MG TAB PO SCH (09:36)
[2019-07-26] MEDS: APIXABAN 2.5 MG (ELIQUIS) TABLET PO SCH ×2 (09:36→20:16)
[2019-07-26] MEDS: LACTOBACILLUS ACIDOPHILUS (PROBIOTIC) CAPSULE PO SCH ×2 (09:36→20:16)
[2019-07-26] MEDS: FUROSEMIDE 40 MG (LASIX) TAB PO SCH (09:36)
[2019-07-26] MEDS: PANTOPRAZOLE 40 MG (PROTONIX) TAB PO SCH (09:37)
[2019-07-26] MEDS: polyethylene glycoL POWDER 17 GM (MIRALAX) PACK PO SCH ×2 (09:38→19:26)
[2019-07-26] MEDS: SENNA W/DOCUSATE (SENOKOT S) TABLET PO SCH ×2 (09:38→19:26)
[2019-07-26] MEDS: VISC LIDOCAINE/ANTACID/DIPHENHYDRAMINE 1:1:1 120 ML PO PRN ×3 (09:43)
[2019-07-26] MEDS: IRON SUCROSE 200 MG/10 ML (VENOFER) VIAL IV SCH (09:44)
--- NOTE | 2019-07-26 12:23 | PM&R Progress Note ---
Subjective HPI/CC On Admission Date Seen by Provider: Jul 26, 2019 Time Seen by Provider: 12:30 Subjective/Events-last exam Mouthwash helps Left nare blister appears suspicious for herpes and ulcers in mouth appear to be herpetic so will start Valtrex 500mg PO BID and I updated that to her Originally had to take breaks during walks when she was admitted now walking very well Eating 100% of all meals Right ribs hurt so will added K-pad and that seems to have helped Checked meds and labs Conferred with RN Reviewed therapy notes Review of Systems General: Fatigue Pulmonary: Dyspnea Objective Exam Vital Signs Vital Signs Date Time Temp Pulse Resp B/P (MAP) Pulse Ox O2 Delivery O2 Flow Rate FiO2 07/26/19 09:00 Room Air 07/26/19 06:54 93 07/26/19 05:07 36.2 83 18 137/79 (98) Capillary Refill : Less Than 3 SecondsLess Than 3 Seconds General Appearance: Anxious, Chronically ill, Thin HEENT: PERRL/EOMI, Normal ENT Inspection, Pharynx Normal Neck: Full Range of Motion, Normal Inspection, Non Tender, Supple Respiratory: Chest Non Tender, Lungs Clear, Normal Breath Sounds, No Accessory Muscle Use, No Respiratory Distress, Decreased Breath Sounds Cardiovascular: Regular Rate, Rhythm, No Edema, No Gallop, No JVD, No Murmur, Normal Peripheral Pulses Gastrointestinal: Normal Bowel Sounds, No Organomegaly, No Pulsatile Mass, Non Tender, Soft Back: Normal Inspection, No CVA Tenderness, No Vertebral Tenderness Extremity: Normal Capillary Refill, Normal Inspection, Normal Range of Motion, Non Tender, No Calf Tenderness Neurologic/Psychiatric: Alert, Oriented x3, No Motor/Sensory Deficits, windows 7 deployment lead II- XII Norm as Tested, Depressed Affect Skin: Normal Color, Warm/Dry Lymphatic: No Adenopathy Results/Procedures Lab Patient resulted labs reviewed. FIM Transfers Therapy Code Descriptions/Definitions Functional [place] Measure: 0=Not Assessed/NA 4=Minimal Assistance 1=Total Assistance 5=Supervision or Setup 2=Maximal Assistance 6=Modified [place] 3=Moderate Assistance 7=Complete IndependenceSCALE: Activities may be completed with or without assistive devices. 7-Ncfgveuomh-qckkxac completes the activity by him/herself with no assistance from a helper. 5-Set-up or Clean-up Assistance-helper sets up or cleans up; patient completes activity. [place] assists only prior to or following the activity. 4-Supervision or Touching Assistance-helper provides verbal cues and/or touching/steadying and/or contact guard assistance as patient completes activity. Assistance may be provided throughout the activity or intermittently. 3-Partial/Moderate Assistance-helper does LESS THAN HALF the effort. [place] lifts, holds or supports trunk or limbs, but provides less than half the effort. 2-Substantial/Maximal Assistance-helper does MORE THAN HALF the effort. [place] lifts or holds trunk or limbs and provides more than half the effort. 7-Euihpkqgb-livhog does ALL the effort. Patient does none of the effort to complete the activity. Or, the assistance of 2 or more helpers is required for the patient to complete the activity. If activity was not attempted, code reason: 7-Patient Refused. 9-Not Applicable-not attempted and the patient did not perform the activity before the current illness, exacerbation or injury. 10-Not Attempted due to Environmental Limitations-(lack of equipment, weather restraints, etc.). 88-Not Attempted due to Medical Conditions or Safety Concerns. Roll Left to Right (QC): 6 Sit to Lying (QC): 6 Sit to Stand (QC): 6 Chair/Zlz-ak-Dsqzj Xfer(QC): 5 Car Transfer (QC): 4 (CGA) Gait Training Does the Patient Walk?: Yes Distance: 250, 150 Walk 10 feet (QC): 5 Walk 50 ft with 2 Turns(QC): 4 Walk 150 ft (QC): 4 Walking 10ft/uneven surface-QC: 4 (CGA) Gait Persons Needed: 1 Gait Assistive Device: FWW Wheelchair Training Does the Pt Use a Wheelchair?: No Stair Training Stair Training: Handrails/: 2 handrails #of Steps: 4 1 Step (curb) (QC): 3 (slight LOB due to catching heal on step. 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 Anemia Hypothyroidism Advanced age Frail status Decreased albumin HLP HTN Delirium Iron deficiency failed PO iron ordered IV iron h/o breast cancer Plan: O2 Prednisone as directed Home meds Nebs IS BM regimen IRF protocol Iron infusions thru Midline K-pad to right ribs May need CT scan without IV contrast if right ribs continue to hurt (1) Debility (2) Pneumonia (3) Iron deficiency (4) Anemia (5) Hypothyroidism (6) Rales (7) Renal insufficiency (8) GERD (gastroesophageal reflux disease) (9) Immunosuppression (10) LLL pneumonia (11) Perinuclear antineutrophil cytoplasmic antibodies (p-ANCA) and myeloperoxidase (MPO) antibodies positive (12) Delirium (13) Thrombocytopenia (14) Serum albumin decreased (15) Hypoxia (16) Mouth sores (17) History of breast cancer LYDIA MEJIA DO Jul 26, 2019 12:23
[2019-07-26 17:08] VITALS: BP 133/77
--- NOTE | 2019-07-26 18:02 | NUR ---
PATIENT HAS AMBULATED IN [facility] X2 TIMES TODAY WITH ASSIST OF ONE STAFF. NO C/O SOB WITH EXERTION, NO NEED FOR REST BREAKS DURING AMBULATION. NEW ORDERS FROM DR. MEJIA FOR VALTREX D/T SORE ON NOSE AND CONTINUED SORES IN MOUTH.
[2019-07-26] MEDS: VALACYCLOVIR 500 MG TAB (VALTREX) PO SCH (20:16)
[2019-07-27 05:17] VITALS: BP 143/80
[2019-07-27] MEDS: MULTIVIT W/MINERALS TAB (THERAGRAN M) PO SCH (05:45)
[2019-07-27] MEDS: LEVOTHYROXINE 88 MCG (LEVOTHORID) TAB PO SCH (05:45)
[2019-07-27] MEDS: CATHETER FLUSH 10 ML SYR IV SCH ×3 (05:45→20:12)
[2019-07-27 05:53] LABS: BASOPHILS % (AUTO) 0 % (0-10); EOSINOPHILS % (AUTO) 0 % (0-10); HEMATOCRIT 25 % (35-52); HEMOGLOBIN 8.1 G/DL (11.5-16.0); LYMPHOCYTES # (AUTO) 1.2 X 10^3 (1.0-4.0); LYMPHOCYTES % (AUTO) 13 % (12-44); MEAN CORPUSCULAR HEMOGLOBIN 28 PG (25-34); MEAN CORPUSCULAR HGB CONC 32 G/DL (32-36); MEAN CORPUSCULAR VOLUME 86 FL (80-99); MEAN PLATELET VOLUME 9.5 FL (7.4-10.4); MONOCYTES # (AUTO) 0.5 X 10^3 (0.0-1.0); MONOCYTES % (AUTO) 5 % (0-12); NEUTROPHILS # (AUTO) 7.3 X 10^3 (1.8-7.8); NEUTROPHILS % (AUTO) 82 % (42-75); PLATELET COUNT 175 10^3/uL (130-400); RED CELL DISTRIBUTION WIDTH 18.9 % (10.0-14.5)
[2019-07-27 06:19] LABS: ALBUMIN 2.6 GM/DL (3.2-4.5); BILIRUBIN,TOTAL 0.4 MG/DL (0.1-1.0); CALCIUM 7.9 MG/DL (8.5-10.1); CREATININE SERUM 1.52 MG/DL (0.60-1.30); POTASSIUM 4.2 MMOL/L (3.6-5.0); TOTAL PROTEIN 4.4 GM/DL (6.4-8.2)
--- NOTE | 2019-07-27 08:05 | Physical Therapy Daily Note ---
PT Daily Note-Current Subjective Pt agreeable to PT session. Pain Numeric Pain Scale: 3 Location: Right Location Body Site: Back Appearance Upon arrival, pt sitting up in recliner awake and alert. At end of session, pt sitting up in recliner with call light, phone and bedside table within reach, alarm activated Mental Status Patient Orientation: Person, Place, Time, Eyes Open, Situation Attachments: [place] Transfers SCALE: Activities may be completed with or without assistive devices. 3-Pphyjcphlu-xylkxmf completes the activity by him/herself with no assistance from a helper. 5-Set-up or Clean-up Assistance-helper sets up or cleans up; patient completes activity. [place] assists only prior to or following the activity. 4-Supervision or Touching Assistance-helper provides verbal cues and/or touching/steadying and/or contact guard assistance as patient completes activity. Assistance may be provided throughout the activity or intermittently. 3-Partial/Moderate Assistance-helper does LESS THAN HALF the effort. [place] lifts, holds or supports trunk or limbs, but provides less than half the effort. 2-Substantial/Maximal Assistance-helper does MORE THAN HALF the effort. [place] lifts or holds trunk or limbs and provides more than half the effort. 4-Aziyprhac-lorffj does ALL the effort. Patient does none of the effort to complete the activity. Or, the assistance of 2 or more helpers is required for the patient to complete the activity. If activity was not attempted, code reason: 7-Patient Refused. 9-Not Applicable-not attempted and the patient did not perform the activity before the current illness, exacerbation or injury. 10-Not Attempted due to Environmental Limitations-(lack of equipment, weather restraints, etc.). 88-Not Attempted due to Medical Conditions or Safety Concerns. Sit to Stand (QC): 5 (occasional verb inst for safety/hand placement) Weight Bearing Weight Bearing/Tolerated Weight Bearing/Tolerated Gait Training Does the Patient Walk?: Yes Distance: 215 x2 Walk 10 feet (QC): 5 Walk 50 ft with 2 Turns(QC): 4 Walk 150 ft (QC): 4 Gait Persons Needed: 1 Gait Assistive Device: FWW slow to fair pace, slight path deviation, increased without AD, no LOB Wheelchair Training Does the Pt Use a Wheelchair?: No Stair Training Stair Training: Handrails/: 2 handrails #of Steps: 4 1 Step (curb) (QC): 4 4 Steps (QC): 4 Stairs: Pattern: Reciprocal no LOB or unsteadiness, good sequencing Exercises Standing: Hip Abduction (20 on airex attempting no UE support in // bars), Heel/toe raises (20 on airex attempting no UE support in // bars), 3 way Ex=Flex, Abd, Ext (2 x10 on Airex attempting no UE support in // bars), Marching (20 on airex attempting no UE support in // bars), Mini squats (20 on airex attempting no UE support in // bars), Retro gait (50ft), Sit to Stand (20 with rest breakds), Side steps (50 ft each L and R in // bars attempting no UE support), Stepping over objects (60 ft x2: 5 bolster rolls in // bars attempting no UE support), Unilateral stance (1 min x3 each on airex LE attempting no UE support in // bars) noted most fatigue and increased rest breaks with 3-way hip on airex. noted most difficulty stepping over larger bolster rolls Treatments education, safety, transfers, gait, activity tolerance, balance, neuro, func tional mobility, strength Assessment Current Status: Good Progress PT Short Term Goals Short Term Goals Time Frame: Jul 30, 2019 Roll Left & Right: 5 Sit to lyin Lying to sitting on side of be: 5 Sit to stand: 4 (SBA) Chair/tcq-ve-kwffj transfer: 4 (SBA) Car transfer: 4 (SBA) Walk 10 feet: 4 (SBA) Walk 50 feet with two turns: 4 (SBA) Walk 150 feet: 4 (SBA) Walking 10ft on uneven surface: 4 (SBA) 1 step (curb): 4 (SBA) 4 steps: 4 (CGA) 12 steps: 4 (CGA) 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 Correction Goals PT Correction Goals Time Frame: Aug 22, 2019 Roll Left & Right (QC): 5 Sit to Lying (QC): 5 Lying-Sitting on Side/Bed(QC): 5 Sit to Stand (QC): 5 Chair/Qfz-ba-Zxsnv Xfer(QC): 5 Car Transfer (QC): 5 Does the Patient Walk: Yes Walk 10 feet (QC): 5 Walk 50ft with 2 Turns (QC): 5 Walk 150 ft (QC): 5 Walking 10ft on Uneven Surface: 5 1 Step (curb) (QC): 5 4 Steps (QC): 5 12 Steps (QC): 5 Picking up an Object (QC): 5 PT Plan Treatment/Plan Treatment Plan: Continue Plan of Care Treatment Plan: Bed Mobility, Concurrent Therapy, Education, Functional Activity Gwyn, Functional Strength, Group Therapy, Gait, Safety, Therapeutic Exercise, Transfers Treatment Duration: Aug 22, 2019 Frequency: At least 5 of 7 days/Wk (IRF) Estimated Hrs Per Day: 1.5 hours per day Patient and/or Family Agrees t: Yes Safety Risks/Education Patient Education: Gait Training, Transfer Techniques, Steps, Safety Issues Teaching Recipient: Patient Teaching Methods: Demonstration, Discussion Time/GCodes Time In: 800 Time Out: 900 Total Billed Treatment Time: 60 Total Billed Treatment 1 visit, NM x30 min, FA x10 min, GT x20 min ANASTASIA EM PTA Jul 27, 2019 08:05
--- NOTE | 2019-07-27 09:05 | PM&R Progress Note ---
Subjective HPI/CC On Admission Date Seen by Provider: Jul 27, 2019 Time Seen by Provider: 09:15 Subjective/Events-last exam Mouth blisters improved with Valtrex Originally had to take breaks during walks when she was admitted now walking very well Eating 100% of all meals Right ribs hurt and K-pad has helped BM+ Dramatically improved since admission Checked meds and labs Conferred with RN Reviewed therapy notes Review of Systems General: Fatigue Pulmonary: Dyspnea, Cough Objective Exam Vital Signs Vital Signs Date Time Temp Pulse Resp B/P (MAP) Pulse Ox O2 Delivery O2 Flow Rate FiO2 07/27/19 18:39 94 Room Air 07/27/19 18:00 37.0 74 18 135/76 (95) Capillary Refill : Less Than 3 SecondsLess Than 3 Seconds General Appearance: Anxious, Chronically ill, Thin HEENT: PERRL/EOMI, Normal ENT Inspection, Pharynx Normal Neck: Full Range of Motion, Normal Inspection, Non Tender, Supple Respiratory: Chest Non Tender, Lungs Clear, Normal Breath Sounds, No Accessory Muscle Use, No Respiratory Distress, Decreased Breath Sounds Cardiovascular: Regular Rate, Rhythm, No Edema, No Gallop, No JVD, No Murmur, Normal Peripheral Pulses Gastrointestinal: Normal Bowel Sounds, No Organomegaly, No Pulsatile Mass, Non Tender, Soft Back: Normal Inspection, No CVA Tenderness, No Vertebral Tenderness Extremity: Normal Capillary Refill, Normal Inspection, Normal Range of Motion, Non Tender, No Calf Tenderness Neurologic/Psychiatric: Alert, Oriented x3, No Motor/Sensory Deficits, mining engineer II- XII Norm as Tested, Depressed Affect Skin: Normal Color, Warm/Dry Lymphatic: No Adenopathy Results/Procedures Lab Laboratory Tests 07/27/19 05:45 Patient resulted labs reviewed. FIM Transfers Therapy Code Descriptions/Definitions Functional [place] Measure: 0=Not Assessed/NA 4=Minimal Assistance 1=Total Assistance 5=Supervision or Setup 2=Maximal Assistance 6=Modified [place] 3=Moderate Assistance 7=Complete IndependenceSCALE: Activities may be completed with or without assistive devices. 4-Ccctnpcmjr-xxisvjj completes the activity by him/herself with no assistance from a helper. 5-Set-up or Clean-up Assistance-helper sets up or cleans up; patient completes activity. [place] assists only prior to or following the activity. 4-Supervision or Touching Assistance-helper provides verbal cues and/or touching/steadying and/or contact guard assistance as patient completes activity . Assistance may be provided throughout the activity or intermittently. 3-Partial/Moderate Assistance-helper does LESS THAN HALF the effort. [place] lifts, holds or supports trunk or limbs, but provides less than half the effort. 2-Substantial/Maximal Assistance-helper does MORE THAN HALF the effort. [place] lifts or holds trunk or limbs and provides more than half the effort. 2-Qljpatpbv-ssxdup does ALL the effort. Patient does none of the effort to complete the activity. Or, the assistance of 2 or more helpers is required for the patient to complete the activity. If activity was not attempted, code reason: 7-Patient Refused. 9-Not Applicable-not attempted and the patient did not perform the activity before the current illness, exacerbation or injury. 10-Not Attempted due to Environmental Limitations-(lack of equipment, weather restraints, etc.). 88-Not Attempted due to Medical Conditions or Safety Concerns. Roll Left to Right (QC): 6 Sit to Lying (QC): 6 Sit to Stand (QC): 6 Chair/Htp-lk-Zmkjb Xfer(QC): 5 Car Transfer (QC): 4 (CGA) Gait Training Does the Patient Walk?: Yes Distance: 250, 150 Walk 10 feet (QC): 5 Walk 50 ft with 2 Turns(QC): 4 Walk 150 ft (QC): 4 Walking 10ft/uneven surface-QC: 4 (CGA) Gait Persons Needed: 1 Gait Assistive Device: FWW Wheelchair Training Does the Pt Use a Wheelchair?: No Stair Training Stair Training: Handrails/: 2 handrails #of Steps: 4 1 Step (curb) (QC): 3 (slight LOB due to catching heal on step. 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 Anemia Hypothyroidism Advanced age Frail status Decreased albumin HLP HTN Delirium Iron deficiency failed PO iron ordered IV iron h/o breast cancer Plan: O2 Prednisone as directed Home meds Nebs IS BM regimen IRF protocol Iron infusions thru Midline K-pad to right ribs (1) Debility (2) Pneumonia (3) Iron deficiency (4) Anemia (5) Hypothyroidism (6) Rales (7) Renal insufficiency (8) GERD (gastroesophageal reflux disease) (9) Immunosuppression (10) LLL pneumonia (11) Perinuclear antineutrophil cytoplasmic antibodies (p-ANCA) and myeloperoxidase (MPO) antibodies positive (12) Delirium (13) Thrombocytopenia (14) Serum albumin decreased (15) Hypoxia (16) Mouth sores (17) History of breast cancer LYDIA MEJIA DO Jul 27, 2019 09:05
[2019-07-27] MEDS: FUROSEMIDE 40 MG (LASIX) TAB PO SCH (09:28)
[2019-07-27] MEDS: LACTOBACILLUS ACIDOPHILUS (PROBIOTIC) CAPSULE PO SCH ×2 (09:28→20:12)
[2019-07-27] MEDS: VALACYCLOVIR 500 MG TAB (VALTREX) PO SCH ×2 (09:28→20:12)
[2019-07-27] MEDS: PANTOPRAZOLE 40 MG (PROTONIX) TAB PO SCH (09:28)
[2019-07-27] MEDS: APIXABAN 2.5 MG (ELIQUIS) TABLET PO SCH ×2 (09:28→20:12)
[2019-07-27] MEDS: predniSONE 20 MG TAB PO SCH (09:29)
[2019-07-27] MEDS: DOCUSATE SODIUM 100 MG (COLACE) CAP PO SCH ×2 (09:44→20:12)
[2019-07-27] MEDS: polyethylene glycoL POWDER 17 GM (MIRALAX) PACK PO SCH ×2 (09:44→20:12)
[2019-07-27] MEDS: SENNA W/DOCUSATE (SENOKOT S) TABLET PO SCH ×2 (09:44→20:13)
--- NOTE | 2019-07-27 10:36 | Occupational Ther Daily Note ---
OT Current Status-Daily Note Subjective Pt sitting in recliner at start of session, agreeable to OT tx. ADL-Treatment Therapy Code Descriptions/Definitions Functional [place] Measure: 0=Not Assessed/NA 4=Minimal Assistance 1=Total Assistance 5=Supervision or Setup 2=Maximal Assistance 6=Modified [place] 3=Moderate Assistance 7=Complete IndependenceSCALE: Activities may be completed with or without assistive devices. 9-Kqikluhdyc-mghjtai completes the activity by him/herself with no assistance from a helper. 5-Set-up or Clean-up Assistance-helper sets up or cleans up; patient completes activity. [place] assists only prior to or following the activity. 4-Supervision or Touching Assistance-helper provides verbal cues and/or touch ing/steadying and/or contact guard assistance as patient completes activity. Assistance may be provided throughout the activity or intermittently. 3-Partial/Moderate Assistance-helper does LESS THAN HALF the effort. [place] lifts, holds or supports trunk or limbs, but provides less than half the effort. 2-Substantial/Maximal Assistance-helper does MORE THAN HALF the effort. [place] lifts or holds trunk or limbs and provides more than half the effort. 5-Auoverjgz-vwtthu does ALL the effort. Patient does none of the effort to complete the activity. Or, the assistance of 2 or more helpers is required for the patient to complete the activity. If activity was not attempted, code reason: 7-Patient Refused. 9-Not Applicable-not attempted and the patient did not perform the activity before the current illness, exacerbation or injury. 10-Not Attempted due to Environmental Limitations-(lack of equipment, weather restraints, etc.). 88-Not Attempted due to Medical Conditions or Safety Concerns. Eating (QC): 6 (per pt report.) Oral Hygiene (QC): 6 (IND standing at sink) Shower/Bathe Self (QC): 5 (set up, OT covered IV port on pt's right arm. ) Upper Body Dressing (QC): 5 (set up) Lower Body Dressing (QC): 4 (cues for sequencing. Pt attempted to take off pants, tedhose and socks at one time but was unsuccessful. After OT cued pt to remove 1 at a time, pt was able to complete sucessfully. During donning of pants, pt's foot got stuck on fabric between the 2 legs, she required a cue in order for her foot to go down pant leg.) On/Off Footwear: 3 (Cues for sequencing during doffing (see LBD note above). Pt pushed tedhose to ankles, then required assistance with removing them the rest of the way. OT dependently donned coral hose, then pt able to don socks.) Toileting Hygiene (QC): 4 (SBA) Toilet Transfer (QC): 3 (Min A Pt pulled up from GB, but asked for OT's hand on her right side to pull up from. ) Other Treatment Pt completed ADL session in her room, requiring rest breaks between tasks. She then ambulated to therapy gym, no AD with CGA. In order to increase BUE strength and functional endurance, pt completed x15 mins on arm bike, min resistance with rest breaks as needed. Pt returned to her room. Post OT session, pt seated in recliner, call light in reach and all needs met. Education OT Patient Education: Correct positioning, Energy conservation, Exercise program, Modified ADL techniques, Progress toward Goal/Update tx plan, Purpose of tx/functional activities Teaching Recipient: Patient Teaching Methods: Discussion Response to Teaching: Verbalize Understanding OT Short Term Goals Short Term Goals Time Frame: Aug 05, 2019 Oral hygiene: 5 Lower body dressin Putting on/taking off footwear: 5 OT Director Emergency Department Goals Intermediate Goals Time Frame: Aug 21, 2019 Eating (QC): 6 Oral Hygiene (QC): 6 Toileting Hygiene (QC): 6 Shower/Bathe Self (QC): 6 Upper Body Dressing (QC): 6 Lower Body Dressing (QC): 6 On/Off Footwear (QC): 6 Additional Goals: 1-Demonstrate ADL Tasks, 2-Verbalize Understanding, 3- ImproveStrength/Gwyn 1=Demonstrate adherence to instructed precautions during ADL tasks. 2=Patient will verbalize/demonstrate understanding of assistive devices/modifications for ADL. 3=Patient will improve strength/tolerance for activity to enable patient to perform ADL's. OT Education/Plan Problem List/Assessment Assessment: Decreased Activ Tolerance, Decreased UE Strength, Impaired I ADL's, Impaired Self-Care Skills Discharge Recommendations Plan/Recommendations: Continue POC Treatment Plan/Plan of Care Patient would benefit from OT for education, treatment and training to promote independence in ADL's, mobility, safety and/or upper extremity function for ADL's. Plan of Care: ADL Retraining, Functional Mobility, Group Exercise/Act as Ind, UE Funct Exercise/Act Treatment Duration: Aug 21, 2019 Frequency: At least 5 of 7 days/Wk (IRF) Estimated Hrs Per Day: 1.5 hours per day Agreement: Yes Rehab Potential: Good Time/GCodes Start Time: 09:30 Stop Time: 11:00 Total Time Billed (hr/min): 90 Billed Treatment Time 1, ADL 5 (70'), EX (20') REKHA HOPSON OT Jul 27, 2019 10:36
[2019-07-27] MEDS: RT-ALBUTEROL SULF 2.5 MG/3 ML PRE-MIX VIAL INH SCH ×2 (11:25→18:39)
--- NOTE | 2019-07-27 14:07 | Physical Therapy Daily Note ---
PT Daily Note-Current Subjective Pt agreeable to PT session. States she is a little sore from this morning's session, but ok. Pain Numeric Pain Scale: 0-No Pain Appearance Pt sitting up in recliner awake and alert upon arrival. At end of session, pt requesting and assisted to restroom. Call light cord in hand. Mental Status Patient Orientation: Normal For Age Transfers SCALE: Activities may be completed with or without assistive devices. 7-Nqkfyflpsy-yopkawh completes the activity by him/herself with no assistance from a helper. 5-Set-up or Clean-up Assistance-helper sets up or cleans up; patient completes activity. [place] assists only prior to or following the activity. 4-Supervision or Touching Assistance-helper provides verbal cues and/or touching/steadying and/or contact guard assistance as patient completes activity. Assistance may be provided throughout the activity or intermittently. 3-Partial/Moderate Assistance-helper does LESS THAN HALF the effort. [place] lifts, holds or supports trunk or limbs, but provides less than half the effort. 2-Substantial/Maximal Assistance-helper does MORE THAN HALF the effort. [place] lifts or holds trunk or limbs and provides more than half the effort. 3-Spmnazjwy-mthxsk does ALL the effort. Patient does none of the effort to complete the activity. Or, the assistance of 2 or more helpers is required for the patient to complete the activity. If activity was not attempted, code reason: 7-Patient Refused. 9-Not Applicable-not attempted and the patient did not perform the activity before the current illness, exacerbation or injury. 10-Not Attempted due to Environmental Limitations-(lack of equipment, weather restraints, etc.). 88-Not Attempted due to Medical Conditions or Safety Concerns. Sit to Stand (QC): 5 Weight Bearing Weight Bearing/Tolerated Weight Bearing/Tolerated Gait Training Does the Patient Walk?: Yes Distance: 200, 100 Walk 10 feet (QC): 5 Walk 50 ft with 2 Turns(QC): 4 Walk 150 ft (QC): 4 Gait Persons Needed: 1 Gait Assistive Device: None slow pace, slight unsteadiness self corrected with increased distance Exercises NuStep Minutes: 20 NuStep Workload: 3 Treatments education, safety, transfers, gait, balance, strength, toileting, activity tolerance, functional mobility Assessment Current Status: Good Progress PT Short Term Goals Short Term Goals Time Frame: Jul 30, 2019 Roll Left & Right: 5 Sit to lyin Lying to sitting on side of be: 5 Sit to stand: 4 (SBA) Chair/jmm-en-lzrfr transfer: 4 (SBA) Car transfer: 4 (SBA) Walk 10 feet: 4 (SBA) Walk 50 feet with two turns: 4 (SBA) Walk 150 feet: 4 (SBA) Walking 10ft on uneven surface: 4 (SBA) 1 step (curb): 4 (SBA) 4 steps: 4 (CGA) 12 steps: 4 (CGA) PT Residential Goals Residential Goals PT Circuit 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 Goals Time Frame: Aug 22, 2019 Roll Left & Right (QC): 5 Sit to Lying (QC): 5 Lying-Sitting on Side/Bed(QC): 5 Sit to Stand (QC): 5 Chair/Fiv-em-Sgyfh Xfer(QC): 5 Toilet Transfer (QC): 5 Car Transfer (QC): 5 Does the Patient Walk: Yes Walk 10 feet (QC): 5 Walk 50ft with 2 Turns (QC): 5 Walk 150 ft (QC): 5 Walking 10ft on Uneven Surface: 5 1 Step (curb) (QC): 5 4 Steps (QC): 5 12 Steps (QC): 5 Picking up an Object (QC): 5 Wheel 50 feet with 2 turns (QC: 9 Wheel 150 feet: 9 PT Plan Treatment/Plan Treatment Plan: Continue Plan of Care Treatment Plan: Bed Mobility, Concurrent Therapy, Education, Functional Activity Gwyn, Functional Strength, Group Therapy, Gait, Safety, Therapeutic Exercise, Transfers Treatment Duration: Aug 22, 2019 Frequency: At least 5 of 7 days/Wk (IRF) Estimated Hrs Per Day: 1.5 hours per day Patient and/or Family Agrees t: Yes Safety Risks/Education Patient Education: Gait Training, Transfer Techniques, Reviewed Precautions, Safety Issues Teaching Recipient: Patient Teaching Methods: Demonstration, Discussion Response to Teaching: Verbalize Understanding, Return Demonstration Time/GCodes Time In: 1330 Time Out: 1400 Total Billed Treatment Time: 30 Total Billed Treatment 1 visit, GT x10 min, EX x20 min ANASTASIA EM PTA Jul 27, 2019 14:07
--- NOTE | 2019-07-27 14:13 | NUR ---
CM/SS CONCURRENT DOCUMENTATION Discussed with patient/daughter late Saturday afternoon anticipation of hospital mandating no visitors as of Saturday. Observed patient ambulating this a.m. with PT, exhibited improvement and EMR entries reflect same. Contacted daughter Bethany about whether patient has Medicare. Bethany reports she has a card and she will e-scan it to me tomorrow. 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 Bethany indicates [employer] will term 08/05/19. Will update Registration of any Medicare information.
[2019-07-27 18:00] VITALS: BP 135/76
[2019-07-27] MEDS: VISC LIDOCAINE/ANTACID/DIPHENHYDRAMINE 1:1:1 120 ML PO PRN ×3 (20:20)
[2019-07-28 05:29] VITALS: BP 131/65
[2019-07-28] MEDS: CATHETER FLUSH 10 ML SYR IV SCH ×3 (05:55→22:24)
[2019-07-28] MEDS: LEVOTHYROXINE 88 MCG (LEVOTHORID) TAB PO SCH (05:55)
[2019-07-28] MEDS: MULTIVIT W/MINERALS TAB (THERAGRAN M) PO SCH (05:55)
[2019-07-28] MEDS: RT-ALBUTEROL SULF 2.5 MG/3 ML PRE-MIX VIAL INH SCH ×2 (07:37→18:50)
[2019-07-28] MEDS: PANTOPRAZOLE 40 MG (PROTONIX) TAB PO SCH (08:17)
[2019-07-28] MEDS: LACTOBACILLUS ACIDOPHILUS (PROBIOTIC) CAPSULE PO SCH ×2 (08:17→20:28)
[2019-07-28] MEDS: predniSONE 20 MG TAB PO SCH (08:17)
[2019-07-28] MEDS: FUROSEMIDE 40 MG (LASIX) TAB PO SCH (08:17)
[2019-07-28] MEDS: APIXABAN 2.5 MG (ELIQUIS) TABLET PO SCH ×2 (08:17→20:28)
[2019-07-28] MEDS: VALACYCLOVIR 500 MG TAB (VALTREX) PO SCH ×2 (08:17→20:28)
[2019-07-28] MEDS: SENNA W/DOCUSATE (SENOKOT S) TABLET PO SCH ×2 (08:18→20:29)
[2019-07-28] MEDS: polyethylene glycoL POWDER 17 GM (MIRALAX) PACK PO SCH ×2 (08:18→20:29)
[2019-07-28] MEDS: DOCUSATE SODIUM 100 MG (COLACE) CAP PO SCH ×2 (08:19→20:28)
--- NOTE | 2019-07-28 09:42 | Physical Therapy Daily Note ---
PT Daily Note-Current Subjective Pt agreeable to PT session. States she is worried about going home too soon, but really does want to go home. States she feels she is doing just fine walking with the walker and would like to work more without AD. Pain Numeric Pain Scale: 0-No Pain Appearance Pt sitting up in recliner before and after therapy session, chair alarm activated, call light, phone and bedside table within reach Mental Status Patient Orientation: Normal For Age Transfers SCALE: Activities may be completed with or without assistive devices. 3-Umcbkkscea-jcyrgot completes the activity by him/herself with no assistance from a helper. 5-Set-up or Clean-up Assistance-helper sets up or cleans up; patient completes activity. [place] assists only prior to or following the activity. 4-Supervision or Touching Assistance-helper provides verbal cues and/or touching/steadying and/or contact guard assistance as patient completes activity. Assistance may be provided throughout the activity or intermittently. 3-Partial/Moderate Assistance-helper does LESS THAN HALF the effort. [place] lif ts, holds or supports trunk or limbs, but provides less than half the effort. 2-Substantial/Maximal Assistance-helper does MORE THAN HALF the effort. [place] lifts or holds trunk or limbs and provides more than half the effort. 5-Iijxttlvl-blkxwr does ALL the effort. Patient does none of the effort to complete the activity. Or, the assistance of 2 or more helpers is required for the patient to complete the activity. If activity was not attempted, code reason: 7-Patient Refused. 9-Not Applicable-not attempted and the patient did not perform the activity before the current illness, exacerbation or injury. 10-Not Attempted due to Environmental Limitations-(lack of equipment, weather restraints, etc.). 88-Not Attempted due to Medical Conditions or Safety Concerns. Roll Left & Right (QC): 6 Sit to Lying (QC): 6 Lying to Sitting/Side of Bed(Q: 6 Sit to Stand (QC): 6 Chair/Nyo-ec-Sgefe Xfer(QC): 6 Toilet Transfer (QC): 4 (low toilet) Car Transfer (QC): 4 (pt requiring SBA and min inst for technique) Weight Bearing Weight Bearing/Tolerated Weight Bearing/Tolerated Gait Training Does the Patient Walk?: Yes Distance: 200 x2 Walk 10 feet (QC): 6 Walk 50 ft with 2 Turns(QC): 6 Walk 150 ft (QC): 6 Walking 10ft/uneven surface-QC: 4 Gait Persons Needed: 1 (for SBA on uneven surface) Gait Assistive Device: FWW Pt demo mod I with gait using FWW, would require SBA at this time without AD due to occasional path deviation and LE fatigue Wheelchair Training Does the Pt Use a Wheelchair?: No Stair Training Stair Training: Handrails/: 2 handrails #of Steps: 12 1 Step (curb) (QC): 6 4 Steps (QC): 6 12 Steps (QC): 6 Stairs: Pattern: Reciprocal slow pace, No LOB Balance Picking up an Object (QC): 6 (from standing with use of unilat UE support ) Exercises Standin way Ex=Flex, Abd, Ext (on airex in // bars 2x10 each LE = fatigue), Marching (on airex in // bars x20), Mini squats (in // bars on airex x20), Retro gait (50 ft), Sit to Stand (15 with use of UE's, attempting with unilat UE), Stepping over objects (15, larger bolster roll more difficult), Unilateral stance (1 min each LE) Treatments noted LE's still weak with difficulty standing from low surfaces although able to perform with SBA to supervision, min difficulty standing from higher surfaces, pt stating legs just feel so heavy from fluid. Assessment Current Status: Good Progress PT Short Term Goals Short Term Goals Time Frame: Jul 30, 2019 Roll Left & Right: 5 Sit to lyin Lying to sitting on side of be: 5 Sit to stand: 4 (SBA) Chair/ist-sv-xkihg transfer: 4 (SBA) Car transfer: 4 (SBA) Walk 10 feet: 4 (SBA) Walk 50 feet with two turns: 4 (SBA) Walk 150 feet: 4 (SBA) Walking 10ft on uneven surface: 4 (SBA) 1 step (curb): 4 (SBA) 4 steps: 4 (CGA) 12 steps: 4 (CGA) PT Alf Goals Alf Goals PT Mechanical Facilities Technician Goals Time Frame: Aug 22, 2019 Roll Left & Right (QC): 5 Sit to Lying (QC): 5 Lying-Sitting on Side/Bed(QC): 5 Sit to Stand (QC): 5 Chair/Adt-uk-Kquuf Xfer(QC): 5 Toilet Transfer (QC): 5 Car Transfer (QC): 5 Does the Patient Walk: Yes Walk 10 feet (QC): 5 Walk 50ft with 2 Turns (QC): 5 Walk 150 ft (QC): 5 Walking 10ft on Uneven Surface: 5 1 Step (curb) (QC): 5 4 Steps (QC): 5 12 Steps (QC): 5 Picking up an Object (QC): 5 Wheel 50 feet with 2 turns (QC: 9 Wheel 150 feet: 9 PT Plan Treatment/Plan Treatment Plan: Continue Plan of Care Treatment Plan: Bed Mobility, Concurrent Therapy, Education, Functional Activity Gwyn, Functional Strength, Group Therapy, Gait, Safety, Therapeutic Exercise, Transfers Treatment Duration: Aug 22, 2019 Frequency: At least 5 of 7 days/Wk (IRF) Estimated Hrs Per Day: 1.5 hours per day Patient and/or Family Agrees t: Yes Safety Risks/Education Patient Education: Gait Training, Transfer Techniques, Steps, Reviewed Precautions, Safety Issues Teaching Recipient: Patient Teaching Methods: Demonstration, Discussion Response to Teaching: Verbalize Understanding, Return Demonstration Time/GCodes Time In: 930 Time Out: 1030 Total Billed Treatment Time: 60 Total Billed Treatment 1 visit, GT x15 min, FA x30 min, NM x15 min ANASTASIA EM PTA Jul 28, 2019 09:42
--- NOTE | 2019-07-28 09:47 | Occupational Ther Daily Note ---
OT Current Status-Daily Note Subjective Pt sitting in chair, agrees to therapy. Pt has no reports of pain. States she did not sleep well last night and is tired today. ADL-Treatment Pt declined bathing, states she completed yesterday. Pt is already dressed. Sit to stand from chair without assist. Gait to restroom with FWW. Pt transferred to toilet using grab bar for safety. Pt able to complete toileting hygiene and clothing management. Stood using grab bar for balance. Pt stood at sink to complete grooming tasks. Pt washed hands, combed hair, and completed oral care with modified independence. Seated rest break taken after ADL completion. Therapy Code Descriptions/Definitions Functional [place] Measure: 0=Not Assessed/NA 4=Minimal Assistance 1=Total Assistance 5=Supervision or Setup 2=Maximal Assistance 6=Modified [place] 3=Moderate Assistance 7=Complete IndependenceSCALE: Activities may be completed with or without assistive devices. 5-Rgvmwvynjc-pmydvgh completes the activity by him/herself with no assistance from a helper. 5-Set-up or Clean-up Assistance-helper sets up or cleans up; patient completes activity. [place] assists only prior to or following the activity. 4-Supervision or Touching Assistance-helper provides verbal cues and/or touching/steadying and/or contact guard assistance as patient completes activity. Assistance may be provided throughout the activity or intermittently. 3-Partial/Moderate Assistance-helper does LESS THAN HALF the effort. [place] lifts, holds or supports trunk or limbs, but provides less than half the effort. 2-Substantial/Maximal Assistance-helper does MORE THAN HALF the effort. [place] lifts or holds trunk or limbs and provides more than half the effort. 8-Yecgddgyd-wplbqy does ALL the effort. Patient does none of the effort to complete the activity. Or, the assistance of 2 or more helpers is required for the patient to complete the activity. If activity was not attempted, code reason: 7-Patient Refused. 9-Not Applicable-not attempted and the patient did not perform the activity before the current illness, exacerbation or injury. 10-Not Attempted due to Environmental Limitations-(lack of equipment, weather restraints, etc.). 88-Not Attempted due to Medical Conditions or Safety Concerns. Oral Hygiene (QC): 6 Toileting Hygiene (QC): 5 Toilet Transfer (QC): 5 Other Treatment Gait to therapy gym with FWW, slow pace. No LOB noted. Arm bike [id number] to increase overall strength and activity tolerance needed for functional task completion. Pt performed activity with minimal resistance and slow pace. No rest breaks needed until completion of activity. Pt performed standing romo bag toss to promote standing balance during UE activity and activity tolerance. Pt stood and completed ball catch/toss using bilateral UE to increase dynamic standing balance. Pt able to complete task with supervision. Pt completed bilateral UE exercises to increase strength for ADLs and transfers. Pt performed shoulder flexion, forward press, biceps curls, and wrist flex/ext x10 reps, 2 sets. Rest breaks taken between exercises. Skilled cues for proper exercise technique. Pt completed fine motor task with bilateral UE with 1# weights in place to increase strength, activity tolerance, and coordination. Pt returned to room using FWW. Pt has decreased activity tolerance and requires occasional rest breaks throughout treatment. Pt sitting in chair with needs met and chair alarm in place after session. OT Short Term Goals Short Term Goals Time Frame: Aug 05, 2019 Oral hygiene: 5 Lower body dressin Putting on/taking off footwear: 5 OT Enrober Tender Goals Senior Living Goals Time Frame: Aug 21, 2019 Eating (QC): 6 Oral Hygiene (QC): 6 Toileting Hygiene (QC): 6 Shower/Bathe Self (QC): 6 Upper Body Dressing (QC): 6 Lower Body Dressing (QC): 6 On/Off Footwear (QC): 6 Additional Goals: 1-Demonstrate ADL Tasks, 2-Verbalize Understanding, 3- ImproveStrength/Gwyn 1=Demonstrate adherence to instructed precautions during ADL tasks. 2=Patient will verbalize/demonstrate understanding of assistive devices/modifications for ADL. 3=Patient will improve strength/tolerance for activity to enable patient to perform ADL's. OT Education/Plan Discharge Recommendations Plan/Recommendations: Continue POC Treatment Plan/Plan of Care Patient would benefit from OT for education, treatment and training to promote independence in ADL's, mobility, safety and/or upper extremity function for ADL's. Plan of Care: ADL Retraining, Functional Mobility, Group Exercise/Act as Ind, UE Funct Exercise/Act Treatment Duration: Aug 21, 2019 Frequency: At least 5 of 7 days/Wk (IRF) Estimated Hrs Per Day: 1.5 hours per day Agreement: Yes Rehab Potential: Good Time/GCodes Start Time: 08:00 Stop Time: 09:30 Total Time Billed (hr/min): 90 Billed Treatment Time 1 visit, ADL(20minutes), EXx3(40minutes), FAx2(30minutes) NILSA GARCIA OT Jul 28, 2019 09:47
--- NOTE | 2019-07-28 10:30 | NUR ---
Pastoral care visit.
[2019-07-28] MEDS: IRON SUCROSE 200 MG/10 ML (VENOFER) VIAL IV SCH (10:36)
[2019-07-28] MEDS ORDERED: ATOV750O4 PO (12:21)
[2019-07-28] MEDS ORDERED: PRD20T PO ×2 (12:37)
--- NOTE | 2019-07-28 12:37 | PM&R Progress Note ---
Subjective HPI/CC On Admission Date Seen by Provider: Jul 28, 2019 Time Seen by Provider: 09:30 Subjective/Events-last exam Mouth blisters improved with Valtrex Walking very well and gaining strength Eating 100% of all meals Right ribs improved BM+ Using IS Dramatically improved since admission Checked meds and labs Conferred with RN Reviewed therapy notes Review of Systems General: Fatigue Pulmonary: Dyspnea Objective Exam Vital Signs Vital Signs Date Time Temp Pulse Resp B/P (MAP) Pulse Ox O2 Delivery O2 Flow Rate FiO2 07/28/19 20:30 Room Air 07/28/19 18:50 92 07/28/19 17:35 36.8 88 18 146/77 (100) Capillary Refill : Less Than 3 SecondsLess Than 3 Seconds General Appearance: Anxious, Chronically ill, Thin HEENT: PERRL/EOMI, Normal ENT Inspection, Pharynx Normal Neck: Full Range of Motion, Normal Inspection, Non Tender, Supple Respiratory: Chest Non Tender, Lungs Clear, Normal Breath Sounds, No Accessory Muscle Use, No Respiratory Distress, Decreased Breath Sounds Cardiovascular: Regular Rate, Rhythm, No Edema, No Gallop, No JVD, No Murmur, Normal Peripheral Pulses Gastrointestinal: Normal Bowel Sounds, No Organomegaly, No Pulsatile Mass, Non Tender, Soft Back: Normal Inspection, No CVA Tenderness, No Vertebral Tenderness Extremity: Normal Capillary Refill, Normal Inspection, Normal Range of Motion, Non Tender, No Calf Tenderness Neurologic/Psychiatric: Alert, Oriented x3, No Motor/Sensory Deficits, welt beater II- XII Norm as Tested, Depressed Affect Skin: Normal Color, Warm/Dry Lymphatic: No Adenopathy Results/Procedures Lab Patient resulted labs reviewed. FIM Transfers Therapy Code Descriptions/Definitions Functional [place] Measure: 0=Not Assessed/NA 4=Minimal Assistance 1=Total Assistance 5=Supervision or Setup 2=Maximal Assistance 6=Modified [place] 3=Moderate Assistance 7=Complete IndependenceSCALE: Activities may be completed with or without assistive devices. 9-Fzqqhiwagu-gpmijiy completes the activity by him/herself with no assistance from a helper. 5-Set-up or Clean-up Assistance-helper sets up or cleans up; patient completes activity. [place] assists only prior to or following the activity. 4-Supervision or Touching Assistance-helper provides verbal cues and/or touching/steadying and/or contact guard assistance as patient completes activity. Assistance may be provided throughout the activity or intermittently. 3-Partial/Moderate Assistance-helper does LESS THAN HALF the effort. [place] lifts, holds or supports trunk or limbs, but provides less than half the effort. 2-Substantial/Maximal Assistance-helper does MORE THAN HALF the effort. [place] lifts or holds trunk or limbs and provides more than half the effort. 0-Gzrgagtvv-mxbqkd does ALL the effort. Patient does none of the effort to complete the activity. Or, the assistance of 2 or more helpers is required for the patient to complete the activity. If activity was not attempted, code reason: 7-Patient Refused. 9-Not Applicable-not attempted and the patient did not perform the activity before the current illness, exacerbation or injury. 10-Not Attempted due to Environmental Limitations-(lack of equipment, weather restraints, etc.). 88-Not Attempted due to Medical Conditions or Safety Concerns. Roll Left to Right (QC): 6 Sit to Lying (QC): 6 Sit to Stand (QC): 6 Chair/Hqz-fc-Mlljr Xfer(QC): 6 Car Transfer (QC): 4 Gait Training Does the Patient Walk?: Yes Distance: 200 x2 Walk 10 feet (QC): 6 Walk 50 ft with 2 Turns(QC): 6 Walk 150 ft (QC): 6 Walking 10ft/uneven surface-QC: 4 Gait Persons Needed: 1 (for SBA on uneven surface) Gait Assistive Device: FWW Wheelchair Training Does the Pt Use a Wheelchair?: No Stair Training Stair Training: Handrails/: 2 handrails #of Steps: 12 1 Step (curb) (QC): 4 4 Steps (QC): 4 12 Steps (QC): 88 Stairs: Pattern: Reciprocal Balance Picking up an Object (QC): 5 ADL-Treatment Eating (QC): 6 (per pt report.) Oral Hygiene (QC): 6 Shower/Bathe Self (QC): 5 (set up, OT covered IV port on pt's right arm. ) Upper Body Dressing (QC): 5 (set up) Lower Body Dressing (QC): 4 (cues for sequencing. Pt attempted to take off pants, tedhose and socks at one time but was unsuccessful. After OT cued pt to remove 1 at a time, pt was able to complete sucessfully. During donning of pants, pt's foot got stuck on fabric between the 2 legs, she required a cue in order for her foot to go down pant leg.) On/Off Footwear (QC): 3 (Cues for sequencing during doffing (see LBD note above). Pt pushed tedhose to ankles, then required assistance with removing them the rest of the way. 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 Anemia Hypothyroidism Advanced age Frail status Decreased albumin HLP HTN Delirium Iron deficiency failed PO iron ordered IV iron h/o breast cancer Plan: O2 Prednisone as directed Home meds Nebs IS BM regimen IRF protocol Iron infusions thru Midline K-pad to right ribs Impressive recovery (1) Debility (2) Pneumonia (3) Iron deficiency (4) Anemia (5) Hypothyroidism (6) Rales (7) Renal insufficiency (8) GERD (gastroesophageal reflux disease) (9) Immunosuppression (10) LLL pneumonia (11) Perinuclear antineutrophil cytoplasmic antibodies (p-ANCA) and myeloperoxidase (MPO) antibodies positive (12) Delirium (13) Thrombocytopenia (14) Serum albumin decreased (15) Hypoxia (16) Mouth sores (17) History of breast cancer LYDIA MEJIA DO Jul 28, 2019 12:37
--- NOTE | 2019-07-28 13:41 | Physical Therapy Daily Note ---
PT Daily Note-Current Subjective Pt agreeable to PT session. States she was told she will be able to go home in a couple of days and feels pretty good about it. Pain Numeric Pain Scale: 0-No Pain Appearance Pt in bed before and after therapy session, call light, phone and bedside table within reach, alarm activated Mental Status Patient Orientation: Normal For Age Transfers SCALE: Activities may be completed with or without assistive devices. 0-Xbyksekhqh-kzcityi completes the activity by him/herself with no assistance from a helper. 5-Set-up or Clean-up Assistance-helper sets up or cleans up; patient completes activity. [place] assists only prior to or following the activity. 4-Supervision or Touching Assistance-helper provides verbal cues and/or touching/steadying and/or contact guard assistance as patient completes activity. Assistance may be provided throughout the activity or intermittently. 3-Partial/Moderate Assistance-helper does LESS THAN HALF the effort. [place] lifts, holds or supports trunk or limbs, but provides less than half the effort. 2-Substantial/Maximal Assistance-helper does MORE THAN HALF the effort. [place] lifts or holds trunk or limbs and provides more than half the effort. 3-Wlcqjvhlj-avrfdn does ALL the effort. Patient does none of the effort to complete the activity. Or, the assistance of 2 or more helpers is required for the patient to complete the activity. If activity was not attempted, code reason: 7-Patient Refused. 9-Not Applicable-not attempted and the patient did not perform the activity before the current illness, exacerbation or injury. 10-Not Attempted due to Environmental Limitations-(lack of equipment, weather restraints, etc.). 88-Not Attempted due to Medical Conditions or Safety Concerns. Roll Left & Right (QC): 6 Sit to Lying (QC): 6 Lying to Sitting/Side of Bed(Q: 6 Sit to Stand (QC): 6 Weight Bearing Weight Bearing/Tolerated Weight Bearing/Tolerated Gait Training Does the Patient Walk?: Yes Distance: 200 x2 Walk 10 feet (QC): 4 Walk 50 ft with 2 Turns(QC): 4 Walk 150 ft (QC): 4 Gait Persons Needed: 1 Gait Assistive Device: None Pt requiring supervision/SBA during gait without AD for slight unsteadiness/path deviation and increased fatigue Wheelchair Training Does the Pt Use a Wheelchair?: No Stair Training Stair Training: Handrails/: 2 handrails #of Steps: 12 4 Steps (QC): 4 12 Steps (QC): 4 Stairs: Pattern: Reciprocal Exercises NuStep Minutes: 15 NuStep Workload: 4 Treatments education, safety, transfers, gait, strength, activity tolerance, functional mobility, bed mob, stairs, balance Assessment Current Status: Good Progress PT Short Term Goals Short Term Goals Time Frame: Jul 30, 2019 Roll Left & Right: 5 Sit to lyin Lying to sitting on side of be: 5 Sit to stand: 4 (SBA) Chair/fxx-xb-lknkm transfer: 4 (SBA) Car transfer: 4 (SBA) Walk 10 feet: 4 (SBA) Walk 50 feet with two turns: 4 (SBA) Walk 150 feet: 4 (SBA) Walking 10ft on uneven surface: 4 (SBA) 1 step (curb): 4 (SBA) 4 steps: 4 (CGA) 12 steps: 4 (CGA) PT Care Home Goals Care Home Goals PT Business And Services Instructor Goals Time Frame: Aug 22, 2019 Roll Left & Right (QC): 5 Sit to Lying (QC): 5 Lying-Sitting on Side/Bed(QC): 5 Sit to Stand (QC): 5 Chair/Vyv-lc-Dektx Xfer(QC): 5 Toilet Transfer (QC): 5 Car Transfer (QC): 5 Does the Patient Walk: Yes Walk 10 feet (QC): 5 Walk 50ft with 2 Turns (QC): 5 Walk 150 ft (QC): 5 Walking 10ft on Uneven Surface: 5 1 Step (curb) (QC): 5 4 Steps (QC): 5 12 Steps (QC): 5 Picking up an Object (QC): 5 Wheel 50 feet with 2 turns (QC: 9 Wheel 150 feet: 9 PT Plan Treatment/Plan Treatment Plan: Continue Plan of Care Treatment Plan: Bed Mobility, Concurrent Therapy, Education, Functional A ctivity Gwyn, Functional Strength, Group Therapy, Gait, Safety, Therapeutic Exercise, Transfers Treatment Duration: Aug 22, 2019 Frequency: At least 5 of 7 days/Wk (IRF) Estimated Hrs Per Day: 1.5 hours per day Patient and/or Family Agrees t: Yes Safety Risks/Education Patient Education: Gait Training, Transfer Techniques, Steps, Reviewed Precautions, Safety Issues Teaching Recipient: Patient, Family Teaching Methods: Demonstration, Discussion Response to Teaching: Verbalize Understanding, Return Demonstration Time/GCodes Time In: 1330 Time Out: 1400 Total Billed Treatment Time: 30 Total Billed Treatment 1 visit, EX x15 min, GT x15 ANASTASIA EM PTA Jul 28, 2019 13:41
[2019-07-28 17:35] VITALS: BP 146/77
--- NOTE | 2019-07-28 17:58 | NUR ---
WALKED IN HALLS WITH RN. TOLERATED WELL.
--- NOTE | 2019-07-28 19:12 | NUR ---
bedside report received from RAVI BROOKS, assume care of pt
[2019-07-28] MEDS: VISC LIDOCAINE/ANTACID/DIPHENHYDRAMINE 1:1:1 120 ML PO PRN ×3 (19:14)
--- NOTE | 2019-07-28 20:28 | NUR ---
pt refused Althea, kamaljit & Amairani, side rails up x4, bed alarm compensation and benefits manager light within reach
[2019-07-29] MEDS: VISC LIDOCAINE/ANTACID/DIPHENHYDRAMINE 1:1:1 120 ML PO PRN ×6 (04:27→20:28)
--- NOTE | 2019-07-29 04:27 | NUR ---
c/o sore mouth, level 4/10 on numeric scale,magic mouthwash 5 ml given
--- NOTE | 2019-07-29 05:01 | NUR ---
resting quietly in bed, pain level 0/10on CNPI scale
[2019-07-29 05:45] VITALS: BP 154/87
[2019-07-29] MEDS: CATHETER FLUSH 10 ML SYR IV SCH ×3 (05:48→22:26)
[2019-07-29] MEDS: LEVOTHYROXINE 88 MCG (LEVOTHORID) TAB PO SCH (06:33)
[2019-07-29] MEDS: MULTIVIT W/MINERALS TAB (THERAGRAN M) PO SCH (06:33)
[2019-07-29] MEDS: RT-ALBUTEROL SULF 2.5 MG/3 ML PRE-MIX VIAL INH SCH ×2 (07:29→19:43)
[2019-07-29] MEDS: predniSONE 20 MG TAB PO SCH (08:35)
[2019-07-29] MEDS: FUROSEMIDE 40 MG (LASIX) TAB PO SCH (08:35)
[2019-07-29] MEDS: VALACYCLOVIR 500 MG TAB (VALTREX) PO SCH ×2 (08:35→20:26)
[2019-07-29] MEDS: LACTOBACILLUS ACIDOPHILUS (PROBIOTIC) CAPSULE PO SCH ×2 (08:35→20:27)
[2019-07-29] MEDS: APIXABAN 2.5 MG (ELIQUIS) TABLET PO SCH ×2 (08:35→20:27)
[2019-07-29] MEDS: PANTOPRAZOLE 40 MG (PROTONIX) TAB PO SCH (08:35)
[2019-07-29] MEDS: SENNA W/DOCUSATE (SENOKOT S) TABLET PO SCH ×2 (08:36→20:30)
[2019-07-29] MEDS: DOCUSATE SODIUM 100 MG (COLACE) CAP PO SCH ×2 (08:36→20:29)
[2019-07-29] MEDS: polyethylene glycoL POWDER 17 GM (MIRALAX) PACK PO SCH ×2 (08:36→20:30)
--- NOTE | 2019-07-29 08:59 | PM&R Progress Note ---
Subjective HPI/CC On Admission Date Seen by Provider: Jul 29, 2019 Time Seen by Provider: 09:00 Subjective/Events-last exam Mouth blisters improved with Valtrex and magic mouthwash Walking very well and gaining strength Eating 100% of all meals Right ribs improved and uses kpad since she is always cold anyway BM+ Using IS Dramatically improved since admission DC planned for Saturday? Checked meds and labs Conferred with RN Reviewed therapy notes Review of Systems General: Fatigue Pulmonary: Dyspnea, Cough Objective Exam Vital Signs Vital Signs Date Time Temp Pulse Resp B/P (MAP) Pulse Ox O2 Delivery O2 Flow Rate FiO2 07/29/19 08:00 Room Air 07/29/19 07:30 96 07/29/19 05:45 36.5 78 18 154/87 (109) Capillary Refill : Less Than 3 SecondsLess Than 3 Seconds General Appearance: Anxious, Chronically ill, Thin HEENT: PERRL/EOMI, Normal ENT Inspection, Pharynx Normal Neck: Full Range of Motion, Normal Inspection, Non Tender, Supple Respiratory: Chest Non Tender, Lungs Clear, Normal Breath Sounds, No Accessory Muscle Use, No Respiratory Distress, Crackles (LLL), Decreased Breath Sounds Cardiovascular: Regular Rate, Rhythm, No Edema, No Gallop, No JVD, No Murmur, Normal Peripheral Pulses Gastrointestinal: Normal Bowel Sounds, No Organomegaly, No Pulsatile Mass, Non Tender, Soft Back: Normal Inspection, No CVA Tenderness, No Vertebral Tenderness Extremity: Normal Capillary Refill, Normal Inspection, Normal Range of Motion, Non Tender, No Calf Tenderness Neurologic/Psychiatric: Alert, Oriented x3, No Motor/Sensory Deficits, salvage machine operator II- XII Norm as Tested, Depressed Affect Skin: Normal Color, Warm/Dry Lymphatic: No Adenopathy Results/Procedures Lab Patient resulted labs reviewed. FIM Transfers Therapy Code Descriptions/Definitions Functional [place] Measure: 0=Not Assessed/NA 4=Minimal Assistance 1=Total Assistance 5=Supervision or Setup 2=Maximal Assistance 6=Modified [place] 3=Moderate Assistance 7=Complete IndependenceSCALE: Activities may be completed with or without assistive devices. 4-Qsshprgtyg-qphygst completes the activity by him/herself with no assistance from a helper. 5-Set-up or Clean-up Assistance-helper sets up or cleans up; patient completes activity. [place] assists only prior to or following the activity. 4-Supervision or Touching Assistance-helper provides verbal cues and/or touching/steadying and/or contact guard assistance as patient completes activity. Assistance may be provided throughout the activity or intermittently. 3-Partial/Moderate Assistance-helper does LESS THAN HALF the effort. [place] lift s, holds or supports trunk or limbs, but provides less than half the effort. 2-Substantial/Maximal Assistance-helper does MORE THAN HALF the effort. [place] lifts or holds trunk or limbs and provides more than half the effort. 1-Qprfjjsha-xmfnnm does ALL the effort. Patient does none of the effort to complete the activity. Or, the assistance of 2 or more helpers is required for the patient to complete the activity. If activity was not attempted, code reason: 7-Patient Refused. 9-Not Applicable-not attempted and the patient did not perform the activity before the current illness, exacerbation or injury. 10-Not Attempted due to Environmental Limitations-(lack of equipment, weather restraints, etc.). 88-Not Attempted due to Medical Conditions or Safety Concerns. Roll Left to Right (QC): 6 Sit to Lying (QC): 6 Sit to Stand (QC): 6 Chair/Hux-kp-Lymyt Xfer(QC): 6 Car Transfer (QC): 4 (pt requiring SBA and min inst for technique) Gait Training Does the Patient Walk?: Yes Distance: 200 x2 Walk 10 feet (QC): 4 Walk 50 ft with 2 Turns(QC): 4 Walk 150 ft (QC): 4 Walking 10ft/uneven surface-QC: 4 Gait Persons Needed: 1 Gait Assistive Device: None Wheelchair Training Does the Pt Use a Wheelchair?: No Stair Training Stair Training: Handrails/: 2 handrails #of Steps: 12 1 Step (curb) (QC): 6 4 Steps (QC): 4 12 Steps (QC): 4 Stairs: Pattern: Reciprocal Balance Picking up an Object (QC): 6 (from standing with use of unilat UE support ) ADL-Treatment Eating (QC): 6 (per pt report.) Oral Hygiene (QC): 6 Shower/Bathe Self (QC): 5 (set up, OT covered IV port on pt's right arm. ) Upper Body Dressing (QC): 5 (set up) Lower Body Dressing (QC): 4 (cues for sequencing. Pt attempted to take off pants, tedhose and socks at one time but was unsuccessful. After OT cued pt to remove 1 at a time, pt was able to complete sucessfully. During donning of pants, pt's foot got stuck on fabric between the 2 legs, she required a cue in order for her foot to go down pant leg.) On/Off Footwear (QC): 3 (Cues for sequencing during doffing (see LBD note above). Pt pushed tedhose to ankles, then required assistance with removing them the rest of the way. 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 (1) Debility (2) Pneumonia (3) Iron deficiency (4) Anemia (5) Hypothyroidism (6) Rales (7) Renal insufficiency (8) GERD (gastroesophageal reflux disease) (9) Immunosuppression (10) LLL pneumonia (11) Perinuclear antineutrophil cytoplasmic antibodies (p-ANCA) and myeloperoxidase (MPO) antibodies positive (12) Delirium (13) Thrombocytopenia (14) Serum albumin decreased (15) Hypoxia (16) Mouth sores (17) History of breast cancer LYDIA MEJIA DO Jul 29, 2019 08:59
--- NOTE | 2019-07-29 10:24 | Physical Therapy Daily Note ---
PT Daily Note-Current Subjective Pt. agrees to Rx. States she has 3 steps to negotiate at home. Feeling much better and much stronger Pain Location: No Pain Reported Mental Status Patient Orientation: Normal For Age Transfers SCALE: Activities may be completed with or without assistive devices. 3-Yvxtaglyev-nukcvnm completes the activity by him/herself with no assistance from a helper. 5-Set-up or Clean-up Assistance-helper sets up or cleans up; patient completes activity. [place] assists only prior to or following the activity. 4-Supervision or Touching Assistance-helper provides verbal cues and/or touch ing/steadying and/or contact guard assistance as patient completes activity. Assistance may be provided throughout the activity or intermittently. 3-Partial/Moderate Assistance-helper does LESS THAN HALF the effort. [place] lifts, holds or supports trunk or limbs, but provides less than half the effort. 2-Substantial/Maximal Assistance-helper does MORE THAN HALF the effort. [place] lifts or holds trunk or limbs and provides more than half the effort. 6-Hzqseuakz-ofrmhc does ALL the effort. Patient does none of the effort to complete the activity. Or, the assistance of 2 or more helpers is required for the patient to complete the activity. If activity was not attempted, code reason: 7-Patient Refused. 9-Not Applicable-not attempted and the patient did not perform the activity before the current illness, exacerbation or injury. 10-Not Attempted due to Environmental Limitations-(lack of equipment, weather restraints, etc.). 88-Not Attempted due to Medical Conditions or Safety Concerns. Roll Left & Right (QC): 6 Sit to Lying (QC): 6 Lying to Sitting/Side of Bed(Q: 6 Sit to Stand (QC): 6 Chair/Dwo-hr-Sqauy Xfer(QC): 6 Toilet Transfer (QC): 6 Car Transfer (QC): 6 Weight Bearing Weight Bearing/Tolerated Weight Bearing/Tolerated Gait Training Does the Patient Walk?: Yes Walk 10 feet (QC): 6 Walk 50 ft with 2 Turns(QC): 6 Walk 150 ft (QC): 6 Walking 10ft/uneven surface-QC: 6 Gait Persons Needed: 0 Gait Assistive Device: FWW Stair Training Stair Training: Handrails/: 2 handrails #of Steps: 12 1 Step (curb) (QC): 6 4 Steps (QC): 6 12 Steps (QC): 6 Stairs: Pattern: Reciprocal Balance Picking up an Object (QC): 6 Exercises Supine Ex: Bridging, Ankle pumps, Quad Set, Rolling, Glut sets, Heel Slides, Short Arc Quads, Scooting, Straight leg raise (slight assist), Hip abd/add Supine Reps: 15 NuStep Minutes: 12 NuStep Workload: 4 Treatments toilets indep Assessment Current Status: Good Progress meets goals PT Short Term Goals Short Term Goals Time Frame: Jul 30, 2019 Roll Left & Right: 5 Sit to lyin Lying to sitting on side of be: 5 Sit to stand: 4 (SBA) Chair/tew-ic-hfztq transfer: 4 (SBA) Car transfer: 4 (SBA) Walk 10 feet: 4 (SBA) Walk 50 feet with two turns: 4 (SBA) Walk 150 feet: 4 (SBA) Walking 10ft on uneven surface: 4 (SBA) 1 step (curb): 4 (SBA) 4 steps: 4 (CGA) 12 steps: 4 (CGA) PT Neuroscience Director Na Goals Neuroscience Director Na Goals PT Neuroscience Director Na Goals Time Frame: Aug 22, 2019 Roll Left & Right (QC): 5 Sit to Lying (QC): 5 Lying-Sitting on Side/Bed(QC): 5 Sit to Stand (QC): 5 Chair/Mmg-ns-Kbihq Xfer(QC): 5 Toilet Transfer (QC): 5 Car Transfer (QC): 5 Does the Patient Walk: Yes Walk 10 feet (QC): 5 Walk 50ft with 2 Turns (QC): 5 Walk 150 ft (QC): 5 Walking 10ft on Uneven Surface: 5 1 Step (curb) (QC): 5 4 Steps (QC): 5 12 Steps (QC): 5 Picking up an Object (QC): 5 Wheel 50 feet with 2 turns (QC: 9 Wheel 150 feet: 9 PT Plan Treatment/Plan Treatment Plan: Continue Plan of Care Treatment Plan: Bed Mobility, Concurrent Therapy, Education, Functional Activity Gwyn, Functional Strength, Group Therapy, Gait, Safety, Therapeutic Exercise, Transfers Treatment Duration: Aug 22, 2019 Frequency: At least 5 of 7 days/Wk (IRF) Estimated Hrs Per Day: 1.5 hours per day Patient and/or Family Agrees t: Yes Safety Risks/Education Patient Education: Gait Training, Transfer Techniques, Steps, Correct Positioning, Disease Process, Safety Issues Teaching Recipient: Patient Teaching Methods: Demonstration, Discussion Response to Teaching: Verbalize Understanding, Return Demonstration Time/GCodes Time In: 930 Time Out: 1030 Total Billed Treatment Time: 60 Total Billed Treatment 1,FA25m,GT15m,EX20m BILL CAIN DIRECTOR OF SCIENCE Jul 29, 2019 10:24
--- NOTE | 2019-07-29 10:50 | Occupational Ther Daily Note ---
OT Current Status-Daily Note Subjective Pt sitting in chair, agrees to therapy. No c/o pain. Pt states she would like to go home soon. ADL-Treatment Therapy Code Descriptions/Definitions Functional [place] Measure: 0=Not Assessed/NA 4=Minimal Assistance 1=Total Assistance 5=Supervision or Setup 2=Maximal Assistance 6=Modified [place] 3=Moderate Assistance 7=Complete IndependenceSCALE: Activities may be completed with or without assistive devices. 3-Avrxtopyuj-sexwura completes the activity by him/herself with no assistance from a helper. 5-Set-up or Clean-up Assistance-helper sets up or cleans up; patient completes activity. [place] assists only prior to or following the activity. 4-Supervision or Touching Assistance-helper provides verbal cues and/or touching/steadying and/or contact guard assistance as patient completes activity. Assistance may be provided throughout the activity or intermittently. 3-Partial/Moderate Assistance-helper does LESS THAN HALF the effort. [place] lifts, holds or supports trunk or limbs, but provides less than half the effort. 2-Substantial/Maximal Assistance-helper does MORE THAN HALF the effort. [place] lifts or holds trunk or limbs and provides more than half the effort. 3-Ryhzotltc-zmccyn does ALL the effort. Patient does none of the effort to complete the activity. Or, the assistance of 2 or more helpers is required for the patient to complete the activity. If activity was not attempted, code reason: 7-Patient Refused. 9-Not Applicable-not attempted and the patient did not perform the activity before the current illness, exacerbation or injury. 10-Not Attempted due to Environmental Limitations-(lack of equipment, weather restraints, etc.). 88-Not Attempted due to Medical Conditions or Safety Concerns. Eating (QC): 6 (by report) Oral Hygiene (QC): 6 (Pt stood at sink to brush teeth without assist.) Shower/Bathe Self (QC): 6 (Pt able to wash/dry all areas while seated on shower chair. Uses hand held shower) Upper Body Dressing (QC): 6 (pt retrieved clothing from closet using FWW for balance. Pt doffed/donned shirt without assist) Lower Body Dressing (QC): 6 (Pt able to thread bilateral LE into underwear and pants. Stood with good balance during pant hike.) On/Off Footwear: 5 (Pt doffed GEMA hose with increased time and effort. Able to don GEMA hose with set up and increased time. Pt doffed/donned socks independent ly) Toileting Hygiene (QC): 6 (Pt able to complete toileting hygiene and clothing management without assist) Toilet Transfer (QC): 6 (Pt transferred on/off toilet without assist using grab bar for safety) Pt completed ADL tasks with increased time. Occasional rest breaks taken throughout session. Pt states she feels stronger and would like to go home soon. Pt sitting in chair with needs met after session. OT Short Term Goals Short Term Goals Time Frame: Aug 05, 2019 Oral hygiene: 5 Lower body dressin Putting on/taking off footwear: 5 OT Barrel Rifler Operator Goals Barrel Rifler Operator Goals Time Frame: Aug 21, 2019 Eating (QC): 6 Oral Hygiene (QC): 6 Toileting Hygiene (QC): 6 Shower/Bathe Self (QC): 6 Upper Body Dressing (QC): 6 Lower Body Dressing (QC): 6 On/Off Footwear (QC): 6 Additional Goals: 1-Demonstrate ADL Tasks, 2-Verbalize Understanding, 3- ImproveStrength/Gwyn 1=Demonstrate adherence to instructed precautions during ADL tasks. 2=Patient will verbalize/demonstrate understanding of assistive devices/modifications for ADL. 3=Patient will improve strength/tolerance for activity to enable patient to perform ADL's. OT Education/Plan Discharge Recommendations Plan/Recommendations: Continue POC Treatment Plan/Plan of Care Patient would benefit from OT for education, treatment and training to promote independence in ADL's, mobility, safety and/or upper extremity function for ADL's. Plan of Care: ADL Retraining, Functional Mobility, Group Exercise/Act as Ind, UE Funct Exercise/Act Treatment Duration: Aug 21, 2019 Frequency: At least 5 of 7 days/Wk (IRF) Estimated Hrs Per Day: 1.5 hours per day Agreement: Yes Rehab Potential: Good Time/GCodes Start Time: 08:00 Stop Time: 09:00 Total Time Billed (hr/min): 60 Billed Treatment Time 1 visit, ADLx4(60minutes) NILSA GARCIA OT Jul 29, 2019 10:50
--- NOTE | 2019-07-29 12:03 | Occupational Ther Daily Note ---
OT Current Status-Daily Note Subjective Pt agreeable to therapy. ADL-Treatment Pt sit to stand without assist. Gait to shower room with FWW, no LOB noted. Reviewed safe tub/shower transfer and different kinds of shower chairs. Pt demonstrates ability to complete transfer with SBA using grab bar. States no questions or concerns at this time. Therapy Code Descriptions/Definitions Functional [place] Measure: 0=Not Assessed/NA 4=Minimal Assistance 1=Total Assistance 5=Supervision or Setup 2=Maximal Assistance 6=Modified [place] 3=Moderate Assistance 7=Complete IndependenceSCALE: Activities may be completed with or without assistive devices. 4-Idwcnxqhoa-apakrnw completes the activity by him/herself with no assistance from a helper. 5-Set-up or Clean-up Assistance-helper sets up or cleans up; patient completes activity. [place] assists only prior to or following the activity. 4-Supervision or Touching Assistance-helper provides verbal cues and/or touching/steadying and/or contact guard assistance as patient completes activity. Assistance may be provided throughout the activity or intermittently. 3-Partial/Moderate Assistance-helper does LESS THAN HALF the effort. [place] lifts, holds or supports trunk or limbs, but provides less than half the effort. 2-Substantial/Maximal Assistance-helper does MORE THAN HALF the effort. [place] lifts or holds trunk or limbs and provides more than half the effort. 3-Agzzsqrtc-rzuiof does ALL the effort. Patient does none of the effort to complete the activity. Or, the assistance of 2 or more helpers is required for the patient to complete the activity. If activity was not attempted, code reason: 7-Patient Refused. 9-Not Applicable-not attempted and the patient did not perform the activity before the current illness, exacerbation or injury. 10-Not Attempted due to Environmental Limitations-(lack of equipment, weather restraints, etc.). 88-Not Attempted due to Medical Conditions or Safety Concerns. Other Treatment Pt performed gait to therapy gym with FWW. Arm bike x15 minutes to promote increased overall strength and activity tolerance needed for functional task completion. Pt performed task with mild resistance and slow pace. No rest breaks needed. Pt returned to room, sitting in chair with needs met and chair alarm in place after session OT Short Term Goals Short Term Goals Time Frame: Aug 05, 2019 Oral hygiene: 5 Lower body dressin Putting on/taking off footwear: 5 OT Cephalometric Tracer Goals Cephalometric Tracer Goals Time Frame: Aug 21, 2019 Eating (QC): 6 Oral Hygiene (QC): 6 Toileting Hygiene (QC): 6 Shower/Bathe Self (QC): 6 Upper Body Dressing (QC): 6 Lower Body Dressing (QC): 6 On/Off Footwear (QC): 6 Additional Goals: 1-Demonstrate ADL Tasks, 2-Verbalize Understanding, 3- ImproveStrength/Gwyn 1=Demonstrate adherence to instructed precautions during ADL tasks. 2=Patient will verbalize/demonstrate understanding of assistive devices/modifications for ADL. 3=Patient will improve strength/tolerance for activity to enable patient to perform ADL's. OT Education/Plan Discharge Recommendations Plan/Recommendations: Continue POC Treatment Plan/Plan of Care Patient would benefit from OT for education, treatment and training to promote independence in ADL's, mobility, safety and/or upper extremity function for ADL's. Plan of Care: ADL Retraining, Functional Mobility, Group Exercise/Act as Ind, UE Funct Exercise/Act Treatment Duration: Aug 21, 2019 Frequency: At least 5 of 7 days/Wk (IRF) Estimated Hrs Per Day: 1.5 hours per day Agreement: Yes Rehab Potential: Good Time/GCodes Start Time: 11:00 Stop Time: 11:30 Total Time Billed (hr/min): 30 Billed Treatment Time 1 visit, FA(10minutes), EX(20minutes) NILSA GARCIA OT Jul 29, 2019 12:03
--- NOTE | 2019-07-29 12:16 | Physical Therapy Daily Note ---
PT Daily Note-Current Subjective Pt. agrees to Rx. Feels she could be up ad avani without a FWW but after some discussion with nursing and after orientation questions with pt. it was decided she probably has too much cognitive involvement. Pt. stated when asked that she was at [facility] in [place] and it is Mon. Also did not recognize her long time [facility] names . Pt. was then reoriented to place and time and situation Pain Numeric Pain Scale: 2 Location: Right Location Body Site: Hip Pain Description: Ache Mental Status Patient Orientation: Person, Eyes Open Transfers SCALE: Activities may be completed with or without assistive devices. 9-Iepdmsuvby-ganiowo completes the activity by him/herself with no assistance from a helper. 5-Set-up or Clean-up Assistance-helper sets up or cleans up; patient completes activity. Stirling assists only prior to or following the activity. 4-Supervision or Touching Assistance-helper provides verbal cues and/or touching/steadying and/or contact guard assistance as patient completes activity. Assistance may be provided throughout the activity or intermittently. 3-Partial/Moderate Assistance-helper does LESS THAN HALF the effort. Stirling lifts, holds or supports trunk or limbs, but provides less than half the effort. 2-Substantial/Maximal Assistance-helper does MORE THAN HALF the effort. Stirling lifts or holds trunk or limbs and provides more than half the effort. 8-Dkwuzhtpm-vsslpo does ALL the effort. Patient does none of the effort to complete the activity. Or, the assistance of 2 or more helpers is required for the patient to complete the activity. If activity was not attempted, code reason: 7-Patient Refused. 9-Not Applicable-not attempted and the patient did not perform the activity before the current illness, exacerbation or injury. 10-Not Attempted due to Environmental Limitations-(lack of equipment, weather restraints, etc.). 88-Not Attempted due to Medical Conditions or Safety Concerns. all TRFs indep Weight Bearing Weight Bearing/Tolerated Weight Bearing/Tolerated Gait Training Gait Assistive Device: None pt. ambulated 150 ft with 3 turns with no AD but was advised to use it until a therapist OKd otherwise Exercises Standing: Hip Abduction, Hamstring curls, Heel/toe raises, Marching, Mini squats, Sit to Stand Standing Reps: 12 Treatments rest breaks between exercises Assessment Current Status: Good Progress cognitive loss limits up ad avani status PT Short Term Goals Short Term Goals Time Frame: Jul 30, 2019 Roll Left & Right: 5 Sit to lyin Lying to sitting on side of be: 5 Sit to stand: 4 (SBA) Chair/yur-tm-ghmfr transfer: 4 (SBA) Car transfer: 4 (SBA) Walk 10 feet: 4 (SBA) Walk 50 feet with two turns: 4 (SBA) Walk 150 feet: 4 (SBA) Walking 10ft on uneven surface: 4 (SBA) 1 step (curb): 4 (SBA) 4 steps: 4 (CGA) 12 steps: 4 (CGA) PT Mutuel Clerk Goals [facility] Goals PT Mutuel Clerk Goals Time Frame: Aug 22, 2019 Roll Left & Right (QC): 5 Sit to Lying (QC): 5 Lying-Sitting on Side/Bed(QC): 5 Sit to Stand (QC): 5 Chair/Wrq-kj-Wsdcd Xfer(QC): 5 Toilet Transfer (QC): 5 Car Transfer (QC): 5 Does the Patient Walk: Yes Walk 10 feet (QC): 5 Walk 50ft with 2 Turns (QC): 5 Walk 150 ft (QC): 5 Walking 10ft on Uneven Surface: 5 1 Step (curb) (QC): 5 4 Steps (QC): 5 12 Steps (QC): 5 Picking up an Object (QC): 5 Wheel 50 feet with 2 turns (QC: 9 Wheel 150 feet: 9 PT Plan Treatment/Plan Treatment Plan: Continue Plan of Care Treatment Plan: Bed Mobility, Concurrent Therapy, Education, Functional Activity Gwyn, Functional Strength, Group Therapy, Gait, Safety, Therapeutic Exercise, Transfers Treatment Duration: Aug 22, 2019 Frequency: At least 5 of 7 days/Wk (IRF) Estimated Hrs Per Day: 1.5 hours per day Patient and/or Family Agrees t: Yes Safety Risks/Education Patient Education: Gait Training, Transfer Techniques, Correct Positioning, Disease Process, Safety Issues Teaching Recipient: Patient Teaching Methods: Demonstration, Discussion Response to Teaching: Verbalize Understanding, Return Demonstration, Reinforcement Needed Time/GCodes Time In: 1130 Time Out: 1200 Total Billed Treatment Time: 30 Total Billed Treatment 1,GT10m,EX20m 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
--- NOTE | 2019-07-29 15:13 | NUR ---
CM/SS PATIENT CARE CONFERENCE Met with patient to discuss conference Summary, updated daughter Bethany Dinh by phone while with patient. Both are in agreement with team recommendations to discharge home July 30. Patient will discharge to her home as before, Bethany resides with her at this time. With picking machine operator helper on Saturday after Bethany's work hours, patient and daughter can be together all weekend regarding transition back home. HHC: Team recommended PT. Discussed agencies in service area, Bethany asked to discuss with her brother before selecting a preference. Provided Medicare Compare via e-scan to Bethany for their review. DME: Patient will need FWW. They have one within the family they may be able to pass down, chief underwriter to order through DME if none available. No barriers to discharge overall. Team noted patient's forgetfulness as a barrier; however, this is not new and patient likely will be more oriented at home. She will have the support of multiple family members to manage this barrier if warranted. Finalize discharge Saturday.
[2019-07-29 18:00] VITALS: BP 136/81
--- NOTE | 2019-07-29 19:12 | NUR ---
bedside report received from FARRAH BROOKS, assume care of pt
--- NOTE | 2019-07-29 20:28 | NUR ---
pt refused Colace, Senokot & miralax, c/o sore mouth magic mouthwash 5ml given, rates pain at 5/10 on numeric scale
--- NOTE | 2019-07-29 21:05 | NUR ---
rates pain at 2/10 on numeric scale
[2019-07-30 05:53] VITALS: BP 161/83
[2019-07-30] MEDS: LEVOTHYROXINE 88 MCG (LEVOTHORID) TAB PO SCH (06:27)
[2019-07-30] MEDS: MULTIVIT W/MINERALS TAB (THERAGRAN M) PO SCH (06:27)
[2019-07-30] MEDS: CATHETER FLUSH 10 ML SYR IV SCH ×3 (06:32→20:46)
[2019-07-30] MEDS: RT-ALBUTEROL SULF 2.5 MG/3 ML PRE-MIX VIAL INH SCH (07:45)
--- NOTE | 2019-07-30 09:02 | Occupational Ther Daily Note ---
OT Current Status-Daily Note Subjective Pt seen upright in recliner chair. Pt denies pain, states slept "okay." Pt agreeable to ADLs in room. Pt seen in bed 2nd entry, pt states agreement for OT tx session. Denies pain. Mental Status/Objective Patient Orientation: Person, Place, Situation, Normal For Age ADL-Treatment Therapy Code Descriptions/Definitions Functional [place] Measure: 0=Not Assessed/NA 4=Minimal Assistance 1=Total Assistance 5=Supervision or Setup 2=Maximal Assistance 6=Modified [place] 3=Moderate Assistance 7=Complete IndependenceSCALE: Activities may be completed with or without assistive devices. 3-Howfipgdez-gnanckb completes the activity by him/herself with no assistance from a helper. 5-Set-up or Clean-up Assistance-helper sets up or cleans up; patient completes activity. Sylmar assists only prior to or following the activity. 4-Supervision or Touching Assistance-helper provides verbal cues and/or touching/steadying and/or contact guard assistance as patient completes activity. Assistance may be provided throughout the activity or intermittently. 3-Partial/Moderate Assistance-helper does LESS THAN HALF the effort. Sylmar lifts, holds or supports trunk or limbs, but provides less than half the effort. 2-Substantial/Maximal Assistance-helper does MORE THAN HALF the effort. Sylmar lifts or holds trunk or limbs and provides more than half the effort. 7-Dmbhpqjzt-fjpxsn does ALL the effort. Patient does none of the effort to complete the activity. Or, the assistance of 2 or more helpers is required for the patient to complete the activity. If activity was not attempted, code reason: 7-Patient Refused. 9-Not Applicable-not attempted and the patient did not perform the activity before the current illness, exacerbation or injury. 10-Not Attempted due to Environmental Limitations-(lack of equipment, weather restraints, etc.). 88-Not Attempted due to Medical Conditions or Safety Concerns. Eating (QC): 6 Oral Hygiene (QC): 6 Bathing Location: L Arm, R Arm, L Upper Leg, R Upper Leg, L Lower Leg (including foot), R Lower Leg (including foot), Chest, Abdomen, Buttocks, Perineal Area Shower/Bathe Self (QC): 4 (SUP in stance.) Upper Body Dressing (QC): 6 Lower Body Dressing (QC): 6 On/Off Footwear: 6 Toileting Hygiene (QC): 6 Toilet Transfer (QC): 6 Other Treatment [id number]: Pt seen in chair. Pt sit to stand with FWW. Pt completes ADLs with IND (excluding showering on sc with SUP). Pt states she is not sure where she will d/c tomorrow. States probably at son's home- son has walk in shower and son/ daughter in law can assist with transfers if needed. Pt returns to recliner chair, GEMA schofield. Pt completes HEP education/ education (completing 5-10 reps bilaterally of 5/5 exercises with min cues.) Pt left in room with call light in reach, all needs met, chair alarm on [id number]: Pt completes bed mob with SBA. Pt sit to stand with SUP. Pt ambulates downstairs with 2WW (nursing notified). Pt unable to navigate with environmental cues, requires visual cues from OT to reach outdoors. Pt reaches outside, ambulates across various terrain, ramp, stairs (SBA). Pt sits on bench, completes 3 rounds of 10-20 reps of UE theraband ex: shoulder extension, scaption, and forward shoulder flexion. Pt ambulates around outdoors with good balance, fair safety awareness. Pt and OT discuss home env, education of safety within the home. Pt returns to ARU, requires cues for directionality. Pt washes hands in front of sink, good balance. Pt completes sock doffing/ donning of new socks. Pt returns to bed, legs elevated. All needs met, call light in reach, all questions addressed. Education OT Patient Education: Correct positioning, Exercise program, Home exercise program, Modified ADL techniques, Progress toward Goal/Update tx plan, Purpose of tx/functional activities, Safety issues, Transfer techniques Teaching Recipient: Patient Teaching Methods: Demonstration, Discussion Response to Teaching: Verbalize Understanding, Return Demonstration OT Short Term Goals Short Term Goals Time Frame: Aug 05, 2019 Oral hygiene: 5 Lower body dressin Putting on/taking off footwear: 5 OT [facility] Goals Surgery Tech Goals Time Frame: Aug 21, 2019 Eating (QC): 6 (met) Oral Hygiene (QC): 6 (met) Toileting Hygiene (QC): 6 (met) Shower/Bathe Self (QC): 6 Upper Body Dressing (QC): 6 (met) Lower Body Dressing (QC): 6 (met) On/Off Footwear (QC): 6 (met) Additional Goals: 1-Demonstrate ADL Tasks, 2-Verbalize Understanding, 3- ImproveStrength/Gwyn 1=Demonstrate adherence to instructed precautions during ADL tasks. 2=Patient will verbalize/demonstrate understanding of assistive devices/modifications for ADL. 3=Patient will improve strength/tolerance for activity to enable patient to perform ADL's. OT Education/Plan Problem List/Assessment Assessment: Decreased Activ Tolerance, Decreased UE Strength, Impaired I ADL's Discharge Recommendations Plan/Recommendations: Continue POC Therapy Discharge Recommendati: Intermittent Supervision, Home & Family Treatment Plan/Plan of Care Treatment,Training & Education: Yes Patient would benefit from OT for education, treatment and training to promote independence in ADL's, mobility, safety and/or upper extremity function for ADL's. Plan of Care: ADL Retraining, Functional Mobility, Group Exercise/Act as Ind, UE Funct Exercise/Act Treatment Duration: Aug 21, 2019 Frequency: At least 5 of 7 days/Wk (IRF) Estimated Hrs Per Day: 1.5 hours per day Agreement: Yes Rehab Potential: Good Time/GCodes Start Time: 08:00 (1345) Stop Time: 09:00 (1430) Total Time Billed (hr/min): 105 Billed Treatment Time 1, ADL 3 EX (60) 1, EX 2, FA (45) MISTY CHRISTIANSON OTR Jul 30, 2019 09:02
--- NOTE | 2019-07-30 09:30 | PM&R Progress Note ---
Subjective HPI/CC On Admission Date Seen by Provider: Jul 30, 2019 Time Seen by Provider: 09:30 Subjective/Events-last exam Mouth blisters improved with Valtrex and magic mouthwash Walking very well and gaining strength Eating 100% of all meals Kpad used with good results BM+ Using IS Dramatically improved since admission DC planned for Saturday Checked meds and labs Conferred with RN Reviewed therapy notes Review of Systems General: Fatigue Pulmonary: Dyspnea, Cough Objective Exam Vital Signs Vital Signs Date Time Temp Pulse Resp B/P (MAP) Pulse Ox O2 Delivery O2 Flow Rate FiO2 07/30/19 18:00 Room Air 07/30/19 16:12 36.9 94 16 136/71 (92) 95 Capillary Refill : Less Than 3 SecondsLess Than 3 Seconds General Appearance: Anxious, Chronically ill, Thin HEENT: PERRL/EOMI, Normal ENT Inspection, Pharynx Normal Neck: Full Range of Motion, Normal Inspection, Non Tender, Supple Respiratory: Chest Non Tender, Lungs Clear, Normal Breath Sounds, No Accessory Muscle Use, No Respiratory Distress, Crackles (LLL), Decreased Breath Sounds Cardiovascular: Regular Rate, Rhythm, No Edema, No Gallop, No JVD, No Murmur, Normal Peripheral Pulses Gastrointestinal: Normal Bowel Sounds, No Organomegaly, No Pulsatile Mass, Non Tender, Soft Back: Normal Inspection, No CVA Tenderness, No Vertebral Tenderness Extremity: Normal Capillary Refill, Normal Inspection, Normal Range of Motion, Non Tender, No Calf Tenderness Neurologic/Psychiatric: Alert, Oriented x3, No Motor/Sensory Deficits, mica spreader II- XII Norm as Tested, Depressed Affect Skin: Normal Color, Warm/Dry Lymphatic: No Adenopathy Results/Procedures Lab Patient resulted labs reviewed. FIM Transfers Therapy Code Descriptions/Definitions Functional [place] Measure: 0=Not Assessed/NA 4=Minimal Assistance 1=Total Assistance 5=Supervision or Setup 2=Maximal Assistance 6=Modified [place] 3=Moderate Assistance 7=Complete IndependenceSCALE: Activities may be completed with or without assistive devices. 8-Rmhpnswoom-cxknqop completes the activity by him/herself with no assistance from a helper. 5-Set-up or Clean-up Assistance-helper sets up or cleans up; patient completes activity. Eugene assists only prior to or following the activity. 4-Supervision or Touching Assistance-helper provides verbal cues and/or touching/steadying and/or contact guard assistance as patient completes activity. Assistance may be provided throughout the activity or intermittently. 3-Partial/Moderate Assistance-helper does LESS THAN HALF the effort. Eugene lifts, holds or supports trunk or limbs, but provides less than half the effort. 2-Substantial/Maximal Assistance-helper does MORE THAN HALF the effort. Eugene lifts or holds trunk or limbs and provides more than half the effort. 6-Pougqvswz-trpgfz does ALL the effort. Patient does none of the effort to complete the activity. Or, the assistance of 2 or more helpers is required for the patient to complete the activity. If activity was not attempted, code reason: 7-Patient Refused. 9-Not Applicable-not attempted and the patient did not perform the activity before the current illness, exacerbation or injury. 10-Not Attempted due to Environmental Limitations-(lack of equipment, weather restraints, etc.). 88-Not Attempted due to Medical Conditions or Safety Concerns. Roll Left to Right (QC): 6 Sit to Lying (QC): 6 Sit to Stand (QC): 6 Chair/Gis-ii-Ajstf Xfer(QC): 6 Car Transfer (QC): 6 Gait Training Does the Patient Walk?: Yes Distance: 200 x2 Walk 10 feet (QC): 6 Walk 50 ft with 2 Turns(QC): 6 Walk 150 ft (QC): 6 Walking 10ft/uneven surface-QC: 6 Gait Persons Needed: 0 Gait Assistive Device: None Wheelchair Training Does the Pt Use a Wheelchair?: No Stair Training Stair Training: Handrails/: 2 handrails #of Steps: 12 1 Step (curb) (QC): 6 4 Steps (QC): 6 12 Steps (QC): 6 Stairs: Pattern: Reciprocal Balance Picking up an Object (QC): 6 ADL-Treatment Eating (QC): 6 Oral Hygiene (QC): 6 Bathing Location: L Arm, R Arm, L Upper Leg, R Upper Leg, L Lower Leg (including foot), R Lower Leg (including foot), Chest, Abdomen, Buttocks, Perineal Area Shower/Bathe Self (QC): 4 (SUP in stance.) Upper Body Dressing (QC): 6 Lower Body Dressing (QC): 6 On/Off Footwear (QC): 6 Toileting Hygiene (QC): 6 Toilet Transfer (QC): 6 Assessment/Plan Assessment and Plan Assess & Plan/Chief Complaint Assessment: Debility LLL PNA s/p treatment at [place] 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 Anemia Hypothyroidism Advanced age Frail status Decreased albumin HLP HTN Delirium Iron deficiency failed PO iron ordered IV iron h/o breast cancer Plan: O2 Prednisone as directed Home meds Nebs IS BM regimen IRF protocol Iron infusions thru Midline K-pad to right ribs Impressive recovery DC Saturday (1) Debility (2) Pneumonia (3) Iron deficiency (4) Anemia (5) Hypothyroidism (6) Rales (7) Renal insufficiency (8) GERD (gastroesophageal reflux disease) (9) Immunosuppression (10) LLL pneumonia (11) Perinuclear antineutrophil cytoplasmic antibodies (p-ANCA) and myeloperoxidase (MPO) antibodies positive (12) Delirium (13) Thrombocytopenia (14) Serum albumin decreased (15) Hypoxia (16) Mouth sores (17) History of breast cancer LYDIA MEJIA DO Jul 30, 2019 09:30
[2019-07-30] MEDS: PANTOPRAZOLE 40 MG (PROTONIX) TAB PO SCH (09:49)
[2019-07-30] MEDS: VALACYCLOVIR 500 MG TAB (VALTREX) PO SCH ×2 (09:49→20:43)
[2019-07-30] MEDS: FUROSEMIDE 40 MG (LASIX) TAB PO SCH (09:49)
[2019-07-30] MEDS: DOCUSATE SODIUM 100 MG (COLACE) CAP PO SCH ×2 (09:50→20:45)
[2019-07-30] MEDS: LACTOBACILLUS ACIDOPHILUS (PROBIOTIC) CAPSULE PO SCH ×2 (09:50→20:43)
[2019-07-30] MEDS: APIXABAN 2.5 MG (ELIQUIS) TABLET PO SCH ×2 (09:50→20:43)
[2019-07-30] MEDS: predniSONE 20 MG TAB PO SCH (09:51)
[2019-07-30] MEDS: IRON SUCROSE 200 MG/10 ML (VENOFER) VIAL IV SCH (09:52)
[2019-07-30] MEDS: polyethylene glycoL POWDER 17 GM (MIRALAX) PACK PO SCH ×2 (10:01→20:45)
[2019-07-30] MEDS: SENNA W/DOCUSATE (SENOKOT S) TABLET PO SCH ×2 (10:01→20:45)
--- NOTE | 2019-07-30 11:05 | NUR ---
CM/SS DISCHARGE PLANNING Daughter Bethany updates that they selected [facility] after family discussion last p.m. C: [facility] Updated PCP Dr. Brenda Cagle MD office re same since they will be assuming responsibility for patient post hospital care and C order sets. Orders recommended by team at Conference were for PT only. Finalize with patient, C and Dr. Cagle tomorrow.
[2019-07-30] MEDS: VISC LIDOCAINE/ANTACID/DIPHENHYDRAMINE 1:1:1 120 ML PO PRN ×6 (12:00→17:25)
--- NOTE | 2019-07-30 13:52 | Physical Therapy Daily Note ---
PT Daily Note-Current Subjective Pt agreeable to treatment. Pt reports overall improvement and says she is anxious and ready to go home. During ther ex pt states "I am real shaky for whatever reason." Appearance Pt dressed and ready for PT. Mental Status Patient Orientation: Person, Place, Situation Transfers SCALE: Activities may be completed with or without assistive devices. 3-Qvnqbyygkc-jakpjtx completes the activity by him/herself with no assistance from a helper. 5-Set-up or Clean-up Assistance-helper sets up or cleans up; patient completes activity. Hospers assists only prior to or following the activity. 4-Supervision or Touching Assistance-helper provides verbal cues and/or touching/steadying and/or contact guard assistance as patient completes ac tivity. Assistance may be provided throughout the activity or intermittently. 3-Partial/Moderate Assistance-helper does LESS THAN HALF the effort. Hospers lifts, holds or supports trunk or limbs, but provides less than half the effort. 2-Substantial/Maximal Assistance-helper does MORE THAN HALF the effort. Hospers lifts or holds trunk or limbs and provides more than half the effort. 1-Yyspttbgx-zkzces does ALL the effort. Patient does none of the effort to complete the activity. Or, the assistance of 2 or more helpers is required for the patient to complete the activity. If activity was not attempted, code reason: 7-Patient Refused. 9-Not Applicable-not attempted and the patient did not perform the activity before the current illness, exacerbation or injury. 10-Not Attempted due to Environmental Limitations-(lack of equipment, weather restraints, etc.). 88-Not Attempted due to Medical Conditions or Safety Concerns. Weight Bearing Weight Bearing/Tolerated Weight Bearing/Tolerated Gait Training Walk 10 feet (QC): 5 Walk 50 ft with 2 Turns(QC): 5 Walk 150 ft (QC): 5 Walking 10ft/uneven surface-QC: 4 Gait Persons Needed: 1 Gait Assistive Device: FWW Pt amb with FWW 2 x 300ft with SBA, steady balance, good speed. Wheelchair Training Wheel 50 ft with 2 turns (QC): 9 Wheel 150 ft (QC): 9 Stair Training Stair Training: Handrails/: 2 handrails #of Steps: 12 1 Step (curb) (QC): 5 4 Steps (QC): 5 12 Steps (QC): 5 Stairs: Pattern: Reciprocal Balance Picking up an Object (QC): 5 Exercises Supine Ex: Ankle pumps, Quad Set, Heel Slides, Short Arc Quads, Hip abd/add Supine Reps: 20 Seated Therapy Exercises: Ankle pumps, Long arc quads, Hip flexion Seated Reps: [address] Ex=Flex, Abd, Ext, Marching Standing Reps: 10 All standing ther ex performed on Airex pad, using hands on //bars as needed. Also performed on Aireex: static balance x 30 sec, tandem stance [address] x [address] NuStep Minutes: 16 NuStep Workload: 3 Assessment Current Status: Good Progress Pt dainelle very well with rest breaks as needed. Pt showed good balance by walking short distances in gym, no AD. Pt performed gait on soft mat x 20', walking over curb x 2 trials and picking up object without AD. Pt is shaky during balance challenges due to weakness but no sheri LOB. PT Short Term Goals Short Term Goals Time Frame: Jul 30, 2019 Roll Left & Right: 5 Sit to lyin Lying to sitting on side of be: 5 Sit to stand: 4 (SBA) Chair/jjy-vz-mlwkb transfer: 4 (SBA) Car transfer: 4 (SBA) Walk 10 feet: 4 (SBA) Walk 50 feet with two turns: 4 (SBA) Walk 150 feet: 4 (SBA) Walking 10ft on uneven surface: 4 (SBA) 1 step (curb): 4 (SBA) 4 steps: 4 (CGA) 12 steps: 4 (CGA) PT Medical Sales Associate Goals Mcfp Goals PT Mcfp Goals Time Frame: Aug 22, 2019 Roll Left & Right (QC): 5 Sit to Lying (QC): 5 Lying-Sitting on Side/Bed(QC): 5 Sit to Stand (QC): 5 Chair/Gzh-mz-Gerfz Xfer(QC): 5 Toilet Transfer (QC): 5 Car Transfer (QC): 5 Does the Patient Walk: Yes Walk 10 feet (QC): 5 Walk 50ft with 2 Turns (QC): 5 Walk 150 ft (QC): 5 Walking 10ft on Uneven Surface: 5 1 Step (curb) (QC): 5 4 Steps (QC): 5 12 Steps (QC): 5 Picking up an Object (QC): 5 Wheel 50 feet with 2 turns (QC: 9 Wheel 150 feet: 9 PT Plan Treatment/Plan Treatment Plan: Continue Plan of Care Treatment Plan: Bed Mobility, Concurrent Therapy, Education, Functional Activity Gwyn, Functional Strength, Group Therapy, Gait, Safety, Therapeutic Exercise, Transfers Treatment Duration: Aug 22, 2019 Frequency: At least 5 of 7 days/Wk (IRF) Estimated Hrs Per Day: 1.5 hours per day Patient and/or Family Agrees t: Yes Time/GCodes Time In: 1030 Time Out: 1200 Total Billed Treatment Time: 90 Total Billed Treatment 1, ther ex 60', Gait 30' DEBRA HOUSTON CPTA Jul 30, 2019 13:51
[2019-07-30 16:12] VITALS: BP 136/71
--- NOTE | 2019-07-30 16:41 | NUR ---
PATIENT AMBULATED WELL WITH THERAPY TODAY. CONTINUES TO C/O PAIN IN MOUTH. CONTINUES TO HAVE SOME COUGH WITH CREAMY COLORED SPUTUM, SMALL AMOUNTS. ACAPELLA ORDERED PER DR. MEJIA.
[2019-07-30] MEDS ORDERED: HYDR-34 PO (21:26)
[2019-07-30] MEDS ORDERED: PANT40TA3 PO (21:26)
[2019-07-30] MEDS ORDERED: PRD20T PO (21:26)
[2019-07-30] MEDS ORDERED: APIX2.5T PO (21:26)
[2019-07-30] MEDS ORDERED: VALA500T4 PO (21:26)
--- NOTE | 2019-07-30 21:28 | D/C HH Face to Face Order ---
D/C Face to Face Orders Reconcile Patient Problems Problems Reviewed?: Yes [place]ructions [place] [facility] Patient Instructions/FollowUp: PCP 1 week Physician to follow Patient: PCP Discharge Diet for Home: No Restrictions Patient Problems: s/p PNA CRI Anemia Prednisone dependency ANCA+ Goals for Patient: Return to independence Patient Data-Allergies,Ht & Wt Patient Allergies: Coded Allergies: No Known Drug Allergies (Unverified , 07/09/14) Height (Feet): 5 Height (Inches): 4 Weight (Pounds): 125 Home Health Need/Face to Face Date of Face to Face: Jul 31, 2019 Clinical Findings: Generalized weakness and fatigue, Immune-compromised, Instability, Pain with ambulation, Unsteady gait I have seen Pt cwwp-yx-qlto: Yes Discharged To: Home Diagnosis/Conditions: s/p PNA CRI Anemia Prednisone dependency ANCA+ Patient is Homebound due to: Jose fall risk due to instabilty, Muscle weakness, Pain w/ambulation Homebound Status Due to the above stated illness, injury or surgical procedure (medical condition or diagnosis) and associated clinical findings, the patient is homebound because of his/her inability to leave home except with aid of a supportive device and/or person AND leaving the home requires a considerable and taxing effort or is medically contraindicated. Pt req the following assistanc: Walker Home Health Nursing Orders Home Health Services Order: Physical Therapy-Evaluate & Treat Home Health Infusion Therapy Line Start Date: Jul 24, 2019 Certify Stmt I certify that this patient is under my care and that I, a nurse practitioner or a physician; a automotive parts counter assistant working with me, had a face to face encounter that - meets the physician face to face encounter requirements with this patient as dated. LYDIA MEJIA DO Jul 30, 2019 21:28
[2019-07-31 06:15] VITALS: BP 153/83
[2019-07-31] MEDS: CATHETER FLUSH 10 ML SYR IV SCH (06:19)
[2019-07-31] MEDS: LEVOTHYROXINE 88 MCG (LEVOTHORID) TAB PO SCH (06:19)
[2019-07-31] MEDS: MULTIVIT W/MINERALS TAB (THERAGRAN M) PO SCH (06:19)
[2019-07-31 06:52] LABS: HEMOGLOBIN 7.5 G/DL (11.5-16.0); MEAN PLATELET VOLUME 9.1 FL (7.4-10.4); RED CELL DISTRIBUTION WIDTH 19.5 % (10.0-14.5); WHITE BLOOD COUNT 11.1 10^3/uL (4.3-11.0)
[2019-07-31] MEDS: polyethylene glycoL POWDER 17 GM (MIRALAX) PACK PO SCH (09:00)
[2019-07-31] MEDS: SENNA W/DOCUSATE (SENOKOT S) TABLET PO SCH (09:00)
[2019-07-31] MEDS: DOCUSATE SODIUM 100 MG (COLACE) CAP PO SCH (09:01)
[2019-07-31] MEDS: VALACYCLOVIR 500 MG TAB (VALTREX) PO SCH (09:19)
[2019-07-31] MEDS: APIXABAN 2.5 MG (ELIQUIS) TABLET PO SCH (09:19)
[2019-07-31] MEDS: LACTOBACILLUS ACIDOPHILUS (PROBIOTIC) CAPSULE PO SCH (09:19)
[2019-07-31] MEDS: FUROSEMIDE 40 MG (LASIX) TAB PO SCH (09:19)
[2019-07-31] MEDS: PANTOPRAZOLE 40 MG (PROTONIX) TAB PO SCH (09:19)
[2019-07-31] MEDS: predniSONE 20 MG TAB PO SCH (09:19)
--- NOTE | 2019-07-31 09:19 | Therapy Team Discharge Summary ---
Therapy Discharge Summary Discharge Recommendations Date of Discharge Physical Therapy Patient came to rehab with pneumonia. Upon evaluation patient performed bed mobility and transfers with CGA, car transfer CGA, ambulated 150' with a rolling walker with CGA (including 50' with at least 2 turns of 90 degrees and 10' over an uneven surface), and can go up and down 1 step using a rolling walker with min assist and can orange picker an object from the floor with setup. Patient has been performing bed mobility and transfer training, balance and endurance training, functional strengthening, stair training, gait training, and education. Patient has made good progress and has met all of her senior living goals. Now, patient performs bed mobility and transfer with independence, independent with car transfer, ambulates 300' with a rolling walker with setup (including 50' with at least 2 turns of 90 degrees but needs CGA for 10' over an uneven surface), can orange picker an object from the floor with setup, and can go up and down 12 steps using 2 handrails with setup. Patient is discharging from this facility today and will be discharged from PT at this time. Occupational Therapy Decreased Activ Tolerance, Decreased UE Strength, Impaired I ADL's PT Fpc Goals Fpc Goals PT Cardroom Attendant Goals Time Frame: Aug 22, 2019 Roll Left to Right (QC): 5 Sit to Lying (QC): 5 Lying-Sitting on Side/Bed(QC): 5 Sit to Stand (QC): 5 Chair/Tgv-os-Ynssb Xfer(QC): 5 Car Transfer (QC): 5 Does the Patient Walk: Yes Walk 10 feet (QC): 5 Walk 10ft-Uneven Surface(QC): 5 Walk 50ft with 2 Turns (QC): 5 Walk 150 ft (QC): 5 Wheel 50 feet with 2 turns (QC: 9 1 Step (curb) (QC): 5 4 Steps (QC): 5 12 Steps (QC): 5 Picking up an Object (QC): 5 OT Cardroom Attendant Goals Fpc Goals Time Frame: Aug 21, 2019 Eating (QC): 6 (met) Oral Hygiene (QC): 6 (met) Shower/Bathe Self (QC): 6 Upper Body Dressing (QC): 6 (met) Lower Body Dressing (QC): 6 (met) On/Off Footwear (QC): 6 (met) Toileting Hygiene (QC): 6 (met) Toilet/Commode Transfer (QC): 5 Additional Goals: 1-Demonstrate ADL Tasks, 2-Verbalize Understanding, 3- ImproveStrength/Gwyn 1=Demonstrate adherence to instructed precautions during ADL tasks. 2=Patient will verbalize/demonstrate understanding of assistive devices/modifications for ADL. 3=Patient will improve strength/tolerance for activity to enable patient to perform ADL's. NICHOL REYES PT Jul 31, 2019 09:18
[2019-07-31] MEDS: RT-ALBUTEROL SULF 2.5 MG/3 ML PRE-MIX VIAL INH SCH (09:38)
--- NOTE | 2019-07-31 11:30 | Therapy Team Discharge Summary ---
Therapy Discharge Summary Discharge Recommendations Date of Discharge Occupational Therapy Pt admits with PNA/ debility. Pt admitting QC's as follows: showering 3, UB dress 3, LB dress 4, footwear 3. Pt and OT work towards higher functional IND through ADL retraining, increasing strength/ endurance through UE exercises, HEP training, and functional tasks. Pt d/c's without reaching all goals, increasing function in each category: showering 4 (SUP), UB dressing 6, LB dressing 6, footwear 6. Pt d/c from OT and ARU. Decreased Activ Tolerance, Decreased UE Strength, Impaired I ADL's PT Care Home Goals Care Home Goals PT Desktop Support Manager Goals Time Frame: Aug 22, 2019 Roll Left to Right (QC): 5 Sit to Lying (QC): 5 Lying-Sitting on Side/Bed(QC): 5 Sit to Stand (QC): 5 Chair/Woq-lt-Ruiax Xfer(QC): 5 Car Transfer (QC): 5 Does the Patient Walk: Yes Walk 10 feet (QC): 5 Walk 10ft-Uneven Surface(QC): 5 Walk 50ft with 2 Turns (QC): 5 Walk 150 ft (QC): 5 Wheel 50 feet with 2 turns (QC: 9 1 Step (curb) (QC): 5 4 Steps (QC): 5 12 Steps (QC): 5 Picking up an Object (QC): 5 OT Care Home Goals Desktop Support Manager Goals Time Frame: Aug 21, 2019 Eating (QC): 6 (met) Oral Hygiene (QC): 6 (met) Shower/Bathe Self (QC): 6 Upper Body Dressing (QC): 6 (met) Lower Body Dressing (QC): 6 (met) On/Off Footwear (QC): 6 (met) Toileting Hygiene (QC): 6 (met) Toilet/Commode Transfer (QC): 5 Additional Goals: 1-Demonstrate ADL Tasks, 2-Verbalize Understanding, 3- ImproveStrength/Gwyn 1=Demonstrate adherence to instructed precautions during ADL tasks. 2=Patient will verbalize/demonstrate understanding of assistive device s/modifications for ADL. 3=Patient will improve strength/tolerance for activity to enable patient to perform ADL's. MISTY CHRISTIANSON OTR Jul 31, 2019 11:30
--- NOTE | 2019-07-31 11:33 | Discharge Summary ---
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 Anemia Hypothyroidism Advanced age Frail status Decreased albumin HLP HTN Delirium Iron deficiency failed PO iron ordered IV iron h/o breast cancer Plan: O2 Prednisone as directed Home meds Nebs IS BM regimen IRF protocol Iron infusions thru Midline K-pad to right ribs Impressive recovery DC Saturday (1) Debility (2) Pneumonia (3) Iron deficiency (4) Anemia (5) Hypothyroidism (6) Rales (7) Renal insufficiency (8) GERD (gastroesophageal reflux disease) (9) Immunosuppression (10) LLL pneumonia (11) Perinuclear antineutrophil cytoplasmic antibodies (p-ANCA) and myeloperoxidase (MPO) antibodies positive (12) Delirium (13) Thrombocytopenia (14) Serum albumin decreased (15) Hypoxia (16) Mouth sores (17) History of breast cancer Discharge Summary Discharge Physical Examination Allergies: Coded Allergies: No Known Drug Allergies (Unverified , 07/09/14) Vitals & I&Os Vital Signs Date Time Temp Pulse Resp B/P (MAP) Pulse Ox O2 Delivery O2 Flow Rate FiO2 07/31/19 11:05 07/31/19 09:38 96 Room Air 07/31/19 06:15 36.9 87 18 General Appearance: Alert, Oriented X3, Cooperative Respiratory: Clear to Auscultation Cardiovascular: Regular Rate Neuro: Normal Gait, Normal Speech, Strength at 5/5 X4 Ext Psych/Mental Status: Mental Status NL Hospital Course Was the Problem List Reviewed?: Yes Hospital course: patient had a standard course in IRF after transferring from [facility] for PNA and sepsis. Advanced age and ANCA + CRI requiring prednisone dependency slowed recovery and her frail status remained a prognostic marker. Patient was able to participate in all therapies and was able to return to improved ambulation and strength and stamina and was able to return home. Magic mouthwash maintained for mouth sores along with valtrex BID weaned to daily. Labs (last 24 hrs) Laboratory Tests 07/24/19 05:15: White Blood Count 6.9, Red Blood Count 3.05L, Hemoglobin 8.5L, Hematocrit 27L, Mean Corpuscular Volume 87, Mean Corpuscular Hemoglobin 28, Mean Corpuscular Hemoglobin Concent 32, Red Cell Distribution Width 18.7H, Platelet Count 127L, Mean Platelet Volume 10.4, Neutrophils (%) (Auto) 81H, Lymphocytes (%) (Auto) 14, Monocytes (%) (Auto) 5, Eosinophils (%) (Auto) 0, Basophils (%) (Auto) 0, Neutrophils # (Auto) 5.6, Lymphocytes # (Auto) 0.9L, Monocytes # (Auto) 0.4, Eosinophils # (Auto) 0.0, Basophils # (Auto) 0.0, Sodium Level 139, Potassium Level 4.3, Chloride Level 101, Carbon Dioxide Level 29, Anion Gap 9, Blood Urea Nitrogen 61H, Creatinine 1.50H, Estimat Glomerular Filtration Rate 33, BUN/Creatinine Ratio 41, Glucose Level 87, Calcium Level 7.6L, Corrected Calcium 8.8, Iron Level 52, Total Bilirubin 0.3, Aspartate Amino Transf (AST/SGOT) 28, Alanine Aminotransferase (ALT/SGPT) 52, Alkaline Phosphatase 100, Total Protein 4.4L, Albumin 2.5L 07/27/19 05:45: White Blood Count 9.0, Red Blood Count 2.92L, Hemoglobin 8.1L, Hematocrit 25L, Mean Corpuscular Volume 86, Mean Corpuscular Hemoglobin 28, Mean Corpuscular Hemoglobin Concent 32, Red Cell Distribution Width 18.9H, Platelet Count 175, Mean Platelet Volume 9.5, Neutrophils (%) (Auto) 82H, Lymphocytes (%) (Auto) 13, Monocytes (%) (Auto) 5, Eosinophils (%) (Auto) 0, Basophils (%) (Auto) 0, Neutrophils # (Auto) 7.3, Lymphocytes # (Auto) 1.2, Monocytes # (Auto) 0.5, Eosinophils # (Auto) 0.0, Basophils # (Auto) 0.0, Sodium Level 137, Potassium Level 4.2, Chloride Level 99, Carbon Dioxide Level 27, Anion Gap 11, Blood Urea Nitrogen 44H, Creatinine 1.52H, Estimat Glomerular Filtration Rate 33, BUN/Creatinine Ratio 29, Glucose Level 71, Calcium Level 7.9L, Corrected Calcium 9.0, Total Bilirubin 0.4, Aspartate Amino Transf (AST/SGOT) 29, Alanine Aminotransferase (ALT/SGPT) 50, Alkaline Phosphatase 102, Total Protein 4.4L, Albumin 2.6L 07/31/19 06:15: White Blood Count 11.1H, Red Blood Count 2.74L, Hemoglobin 7.5L, Hematocrit 24L, Mean Corpuscular Volume 88, Mean Corpuscular Hemoglobin 27, Mean Corpuscular Hemoglobin Concent 31L, Red Cell Distribution Width 19.5H, Platelet Count 209, Mean Platelet Volume 9.1, Creatinine 1.64H Pending Labs Laboratory Tests 07/24/19 05:15: White Blood Count 6.9, Red Blood Count 3.05, Hemoglobin 8.5, Hematocrit 27, Mean Corpuscular Volume 87, Mean Corpuscular Hemoglobin 28, Mean Corpuscular Hemog lobin Concent 32, Red Cell Distribution Width 18.7, Platelet Count 127, Mean Platelet Volume 10.4, Neutrophils (%) (Auto) 81, Lymphocytes (%) (Auto) 14, Monocytes (%) (Auto) 5, Eosinophils (%) (Auto) 0, Basophils (%) (Auto) 0, Neutrophils # (Auto) 5.6, Lymphocytes # (Auto) 0.9, Monocytes # (Auto) 0.4, Eosinophils # (Auto) 0.0, Basophils # (Auto) 0.0, Sodium Level 139, Potassium Level 4.3, Chloride Level 101, Carbon Dioxide Level 29, Anion Gap 9, Blood Urea Nitrogen 61, Creatinine 1.50, Estimat Glomerular Filtration Rate 33, BUN/Creatinine Ratio 41, Glucose Level 87, Calcium Level 7.6, Corrected Calcium 8.8, Iron Level 52, Total Bilirubin 0.3, Aspartate Amino Transf (AST/SGOT) 28, Alanine Aminotransferase (ALT/SGPT) 52, Alkaline Phosphatase 100, Total Protein 4.4, Albumin 2.5 07/27/19 05:45: White Blood Count 9.0, Red Blood Count 2.92, Hemoglobin 8.1, Hematocrit 25, Mean Corpuscular Volume 86, Mean Corpuscular Hemoglobin 28, Mean Corpuscular Hemoglobin Concent 32, Red Cell Distribution Width 18.9, Platelet Count 175, Mean Platelet Volume 9.5, Neutrophils (%) (Auto) 82, Lymphocytes (%) (Auto) 13, Monocytes (%) (Auto) 5, Eosinophils (%) (Auto) 0, Basophils (%) (Auto) 0, Neutrophils # (Auto) 7.3, Lymphocytes # (Auto) 1.2, Monocytes # (Auto) 0.5, Eosinophils # (Auto) 0.0, Basophils # (Auto) 0.0, Sodium Level 137, Potassium Level 4.2, Chloride Level 99, Carbon Dioxide Level 27, Anion Gap 11, Blood Urea Nitrogen 44, Creatinine 1.52, Estimat Glomerular Filtration Rate 33, BUN/Creatinine Ratio 29, Glucose Level 71, Calcium Level 7.9, Corrected Calcium 9.0, Total Bilirubin 0.4, Aspartate Amino Transf (AST/SGOT) 29, Alanine Am inotransferase (ALT/SGPT) 50, Alkaline Phosphatase 102, Total Protein 4.4, Albumin 2.6 07/31/19 06:15: White Blood Count 11.1, Red Blood Count 2.74, Hemoglobin 7.5, Hematocrit 24, Mean Corpuscular Volume 88, Mean Corpuscular Hemoglobin 27, Mean Corpuscular Hemoglobin Concent 31, Red Cell Distribution Width 19.5, Platelet Count 209, Mean Platelet Volume 9.1, Creatinine 1.64 Discharge Home Medications: Active Scripts Active Prednisone 20 Mg Tab 40 Mg PO DAILY@0800 Pantoprazole Sodium 40 Mg Tablet.dr 40 Mg PO DAILY HYDROcodone/APAP 7.5/325 TAB (Acetaminophen/Hydrocodone Bitart) 1 Ea Tablet 1 Ea PO Q4H PRN Eliquis (Apixaban) 2.5 Mg Tablet 2.5 Mg PO BID Valtrex (Valacyclovir HCl) 500 Mg Tablet 500 Mg PO DAILY Reported Prednisone 20 Mg Tab 10 Mg PO HS TAKES A 20MG TO EQUAL 10MG AT BEDTIME Prednisone 20 Mg Tab 20 Mg PO 0800,1400 Atovaquone 750 Mg/5 Ml Oral.susp 5 Ml PO BID Levothyroxine Sodium 88 Mcg Tablet 88 Mcg PO DAILY BEFORE BREAKFA Lasix (Furosemide) 40 Mg Tablet 40 Mg PO DAILY PRN Ferrous Sulfate 325 Mg Tablet 325 Mg PO DAILY Vitamin D2 (Ergocalciferol (Vitamin D2)) 1,250 Mcg Capsule 1,250 Mcg PO SATURDAY Benadryl (Diphenhydramine HCl) 25 Mg Capsule 25 Mg PO HS PRN [Magic Mouthwash] 5-10 Ml PO Q6H PRN Instructions to patient/family Please see electronic discharge instructions given to patient. Diagnosis/Problems Diagnosis/Problems (1) Debility (2) Pneumonia (3) Iron deficiency (4) Anemia (5) Hypothyroidism (6) Rales (7) Renal insufficiency (8) GERD (gastroesophageal reflux disease) (9) Immunosuppression (10) LLL pneumonia (11) Perinuclear antineutrophil cytoplasmic antibodies (p-ANCA) and myeloperoxidase (MPO) antibodies positive (12) Delirium (13) Thrombocytopenia (14) Serum albumin decreased (15) Hypoxia (16) Mouth sores (17) History of breast cancer Clinical Quality Measures DVT/VTE Risk/Contraindication: Risk Factor Score Per Nursin RFS Level Per Nursing on Admit: 4+=Very High LYDIA MEJIA DO Jul 31, 2019 11:33
--- NOTE | 2019-07-31 12:22 | NUR ---
CM/SS DISCHARGE HHC: Finalized with [facility], confirmed receipt of orders/instructions with Brenda at agency. Faxed continuum of care information to PCP Dr. Brenda Cagle MD. Coordinated leaf size picker arrangement per Covid19 protocols with Unit RN and patient's son Giuliano Steven. Patient was dressed and ready to leave, very appreciative of staff and caregivers. DME: Family have [facility] hand me down. Rx provided if they wish to pursue a new one at agency of their choice. Family to explore bath chair or tub bench, whichever is appropriate to home use. HHC PT to assess and advise. All discharge activities complete.
== END 2019-07-31 11:05 | disposition home health service (06) | DRG 948 ==
LOC: EDSTATUS 15:38
PROVIDERS: ADMIT Internal Medicine; ATTEND Internal Medicine
DX: R53.81 Other malaise (principal); I77.6 Arteritis, unspecified; I12.9 Hypertensive chronic kidney disease with stage 1 through stage 4 chronic kidney disease, or unspecified chronic kidney disease; N18.9 Chronic kidney disease, unspecified; B00.2 Herpesviral gingivostomatitis and pharyngotonsillitis; E61.1 Iron deficiency; D64.9 Anemia, unspecified; B00.1 Herpesviral vesicular dermatitis; R41.0 Disorientation, unspecified; E88.09 Other disorders of plasma-protein metabolism, not elsewhere classified; E03.9 Hypothyroidism, unspecified; M54.9 Dorsalgia, unspecified; K21.9 Gastro-esophageal reflux disease without esophagitis; D69.6 Thrombocytopenia, unspecified; E78.5 Hyperlipidemia, unspecified; R07.81 Pleurodynia; Z79.52 Long term (current) use of systemic steroids; Z85.3 Personal history of malignant neoplasm of breast; Z90.12 Acquired absence of left breast and nipple; Z90.49 Acquired absence of other specified parts of digestive tract; Z90.710 Acquired absence of both cervix and uterus
CPT/HCPCS: 36415; 71046; 76937; 80053; 82565; 83540; 85025; 85027; 94640; 94760

== ENCOUNTER 2019-10-16 13:19 | Outpatient (RCR) | payer MEDICARE, OTHER ==
[~2019-10-16 13:19] MED LIST changes: +APIX2.5T PO; +ATOV750O4 PO; +DIPH25CA79 PO; +ERGO50006 PO; +FERR325T18 PO; +FURO-124 PO; +HYDR-34 PO; +HYDR-3875 PO; +LACT1CAP39 PO; +LEVO88TA54 PO; +LOPE2TAB34 PO; +MAGIC MOUTHWASH PO; +MULT-1073 PO; +PANT40TA2 PO; +PANT40TA3 PO; +PHEN177S41 MM; +PRD20T PO; +VALA500T4 PO
== END 2019-11-03 17:00 | disposition home or self-care (01) ==
PROVIDERS: ATTEND Family Medicine
DX: M54.5 Low back pain (principal); R29.6 Repeated falls; R53.1 Weakness; Z87.448 Personal history of other diseases of urinary system; Z86.39 Personal history of other endocrine, nutritional and metabolic disease